=== PATIENT | female | born 1970 | race Caucasian/White ===

== ENCOUNTER 2017-02-25 22:24 | Emergency (ER) | payer BC ==
[2017-02-25] MEDS ORDERED: Benoxinate/Fluorescein 0.4-0.25% Ophth Soln 5 ML Bottle EYELF ONE (22:36)
[2017-02-25] MEDS ORDERED: Proparacaine 0.5% Ophth Soln 15 ML Bottle EYELF ONE (22:36)
--- NOTE | 2017-02-25 22:36 | EDM.PDOC ---
ED HPI GENERAL MEDICAL PROBLEM - General Chief Complaint: Eye Problems Stated Complaint: POSS EYE INJURY Time Seen by Provider: 02/25/17 22:28 - History of Present Illness INITIAL COMMENTS - FREE TEXT/NARRATIVE: 46-year-old female presents emergency room with left eye discomfort. This started this morning. She has some discomfort in her vision has not changed too much. She has a small amount of drainage coming from the. Patient wears extended wear contacts and change these 2 days ago. She denies any URI symptoms or other complaints at this time. She cannot recall any specific trauma. Patient has a significant history of fibromyalgia she's had back surgery in the past she's on chronic opioid therapy. - Related Data Allergies Allergy/AdvReac Type Severity Reaction Status Date / Time ketorolac [From Toradol] Allergy Swelling Verified 02/25/17 22:30 Penicillins Allergy Anaphylactic Verified 02/25/17 22:30 Shock sulfur dioxide Allergy Rash Verified 02/25/17 22:30 Home Meds: Home Meds Ciprofloxacin [Ciloxan 0.3% Ophth Soln] 2.5 ml .XX ONETIME 7 Days #1 bottle [Rx] ED ROS GENERAL - Review of Systems Review Of Systems: See Below Constitutional: Reports: No Symptoms HEENT: Reports: Contact Lenses, Eye Discharge, Eye Pain Respiratory: Reports: No Symptoms Cardiovascular: Reports: No Symptoms GI/Abdominal: Reports: No Symptoms ED EXAM GENERAL W FULL EYE - Physical Exam Exam: See Below Exam Limited By: No Limitations General Appearance: Alert, No Apparent Distress Eye Exam: Left Eye: Conjunctival Injection (Very mild with a small amount of yellow exudate), Bilateral Eye: Normal Fundi, PERRL Visual Acuity (R) 20/: 30 (20/30 both) Visual Acuity (L) 20/: 50 With Correction: No Eyelids: Right: Normal Appearance, Left: Edema (Mild), Bilateral: Foreign Body ( None seen), Lid Everted for Exam Conjunctiva & Sclera: Left: Conjunctival Edema, Discharge, Injected Cornea Exam: Right: Normal Appearance, Left: Examined with Flourescein (Mild inferior punctate) Extraocular Movements: Bilateral: Intact Anterior Chamber: Bilateral: Normal Appearance Posterior Chamber: Bilateral: Normal Funduscopic Ears: Normal External Exam, Normal Canal, Hearing Grossly Normal, Normal TMs Nose: Normal Inspection, Normal Mucosa, No Blood Respiratory/Chest: No Respiratory Distress, Lungs Clear, Normal Breath Sounds Cardiovascular: Normal Peripheral Pulses, Regular Rate, Rhythm, No Edema, No Gallop, No JVD, No Murmur, No Rub ED EYE w/ Add Procedure - Eye Procedure Alcaine Drops Administered: No (Proparacaine) Eye FB Removal: Other (None seen) Progress: Slit-lamp examination done of both eyes more specifically on the left side no foreign bodies identified she has what looks like a very early contact lens keratitis developing. Patient will be advised not use her contacts she is to follow-up with her eye doctor tomorrow she voices understanding of not using contacts him following up with her eye doctor tomorrow she'll be started on Cipro eyedrops as this is what we have in the emergency room. Departure - Departure Time of Disposition: 23:25 Disposition: Home, Self-Care 01 Clinical Impression: Keratitis secondary to contact lens - Discharge Information Referrals: Eliud Kothari MD [Primary Care Provider] - Forms: ED Department Discharge Additional Instructions: Return to the emergency room with any questions problems worsening symptoms. Follow-up with your eye doctor tomorrow for recheck. Do not use your contact lenses until this is completely resolved and advised to do so by her eye doctor. You have been started on Cipro eye drops used 2 drops to left eye every 2 hours while awake for the next 2 days then 2 drops every 4 hours for the following 5 days.
[2017-02-25 23:08] VITALS: BP 132/67
[2017-02-25] MEDS ORDERED: Ciprofloxacin 0.3% Ophth Soln 2.5 ML Bottle ONE (23:37)
== END 2017-02-25 23:40 | disposition home or self-care (01) ==
LOC: JD.ED 22:24
DX: H18.822 Corneal disorder due to contact lens, left eye (principal); Z88.6 Allergy status to analgesic agent; Z88.0 Allergy status to penicillin; Z88.2 Allergy status to sulfonamides
CPT/HCPCS: 99283

== ENCOUNTER 2019-12-03 22:45 | Emergency (ER) | payer BC ==
[2019-12-04] MEDS ORDERED: Acetaminophen/HYDROcodone 325-5 MG Tab PO ONE (00:18)
--- NOTE | 2019-12-04 00:30 | EDM.PDOC ---
ED HPI GENERAL MEDICAL PROBLEM - General Chief Complaint: Back Pain or Injury Stated Complaint: BACK PAIN Time Seen by Provider: 12/03/19 23:26 Source of Information: Reports: Patient, Other (Friend) History Limitations: Reports: Other (After a few minutes of answering questions about her past surgical history, the patient stated "that's enough", and did not provide additional information) - History of Present Illness INITIAL COMMENTS - FREE TEXT/NARRATIVE: Mrs. Gonzalez is a 49-year-old woman with a past medical history significant for chronic back pain for over 20 years, due to degenerative disc disease, status- post 3 lumbar fusions, untreated rheumatoid arthritis, and fibromyalgia, who now presents to the ED stating that she developed a flare of her chronic back pain earlier today. She reports pain felt in her the middle and lower part of her back, with radiation down both lower extremities to the toes. There is no bowel or bladder incontinence. She expressly denies any recent injury to her back. The patient states that she took some of her prescribed diazepam, with no relief. When asked what has worked for her in the past, she replied "hydros". Here in the ED, the patient's initial BP is found to be elevated at 155/90, otherwise, she is hemodynamically stable, afebrile, saturating 91% on room air, however, on recheck, her oxygen saturation is found to be 99% on room air. Other than her back pain, the patient denies recent fever, chills, sore throat, ear pain, nasal or sinus congestion, cough, dyspnea, chest pain, palpitations, nausea, vomiting, constipation, diarrhea, abdominal pain, urinary symptoms, recent weight gain or weight loss, recent bloody bowel movements or black bowel movements, recent joint aches, headaches, or rashes. The patient's PCP is Dr. Eliud Kothari. Her Neurosurgeon is Dr. Heath Ragsdale. Middle Back Pain Score (Numeric/FACES): 10 - Related Data Allergies Allergy/AdvReac Type Severity Reaction Status Date / Time ketorolac [From Toradol] Allergy Swelling Verified 02/25/17 22:30 Penicillins Allergy Anaphylactic Verified 02/25/17 22:30 Shock sulfur dioxide Allergy Rash Verified 02/25/17 22:30 Home Meds: Home Meds ALPRAZolam [Alprazolam] 1 mg PO TID PRN 06/21/20 [History] Baclofen 10 mg PO DAILY 12/03/19 [History] Gabapentin [Neurontin] 300 mg PO QID 12/03/19 [History] Maxalt. 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 (See Below) (Ovarian cysts) Musculoskeletal History: Reports: Back Pain, Chronic (due to DDD), RA (untreated), Other (See Below) (Myotonic dystrophy) Neurological History: Reports: Migraines Psychiatric History: Reports: PTSD, Other (See Below) (Fibromyalgia, Restless leg syndrome, Insomnia) - Past Surgical History GI Surgical History: Reports: Appendectomy, Cholecystectomy (around 2000) Female Surgical History: Reports: Hysterectomy (complete), Other (See Below) (Several laparoscopic ovarian cystectomies) Neurological Surgical History: Reports: Lumbar Spine (L3-S1 fused over 3 surgeries) Social & Family History - Tobacco Use Smoking Status *Q: Current Every Day Smoker Years of Tobacco use: 30 Packs/Tins Daily: 1 - Caffeine Use Caffeine Use: Reports: None - Recreational Drug Use Recreational Drug Use: No ED ROS GENERAL - Review of Systems Review Of Systems: Comprehensive ROS is negative, except as noted in HPI. ED EXAM,LOWER BACK PAIN/INJURY - Physical Exam Exam: See Below Exam Limited By: No Limitations General Appearance: Alert, WD/WN, No Apparent Distress Back Exam: Other (There is a well-healed midline scar over the lumbar spinous processes. No tenderness to palpation of the thoracic or lumbar spinous processes, however, the patient does report reproducible tenderness when the mid -back paraspinous musculature is palpated.) Course - Vital Signs Last Recorded V/S: Last Vital Signs Temp 37.0 C 12/04/19 00:55 Pulse 78 12/04/19 00:55 Resp 14 12/04/19 00:55 BP 128/78 12/04/19 00:55 Pulse Ox 99 12/04/19 00:55 - Orders/Labs/Meds Meds: Medications Discontinued Medications Generic Name Dose Route Start Last Admin Trade Name Marcos PRN Reason Stop Dose Admin Hydrocodone Bitart/Acetaminophen 2 tab 12/04/19 00:18 12/04/19 00:48 Defiance 325-5 Mg PO 12/04/19 00:19 2 tab ONETIME ONE Administration - Re-Assessments/Exams Free Text/Narrative Re-Assessment/Exam: 12/04/19 00:19 As above, the patient developed a flare of her chronic mid to lower back pain earlier today, with radiation down both of her lower extremities to the toes. These are the same symptoms that she has experienced in the past. Despite her usual medications, including baclofen, diazepam, alprazolam, trazodone, and amitriptyline, she feels that she would benefit from some Defiance. As the patient has not sustained any traumatic injury, I do not see an indication for imaging studies, therefore I will order 2 tablets of Defiance, and discharge her home with a small prescription for the same. She can then contact the office of her PCP in the morning. Departure - Departure Time of Disposition: 00:20 Disposition: Home, Self-Care 01 Condition: Good Clinical Impression: Acute exacerbation of chronic low back pain - Discharge Information *PRESCRIPTION DRUG MONITORING PROGRAM REVIEWED*: Not Applicable *COPY OF PRESCRIPTION DRUG MONITORING REPORT IN PATIENT SUMI: Not Applicable Prescriptions: Acetaminophen/HYDROcodone [Defiance 325-5 MG] 1 - 2 tab PO Q6H PRN #10 tablet PRN Reason: Pain Instructions: Chronic Back Pain, [id number] Referrals: Eliud Kothari MD [Primary Care Provider] - Heath Ragsdale MD [Ordering Only Provider] - Forms: ED Department Discharge Additional Instructions: You were seen in the emergency room for a flare of your chronic mid to lower back pain earlier today. You were treated with 2 tablets of the opioid Defiance in the ER, and a prescripti on for Defiance was provided to you. We recommend that you take [id number] ibuprofen, 3 tablets (600 mg) every 8 hours, [id number], as needed for back pain. You may take 1 to 2 tablets of Defiance up to every 6 hours, as needed for pain not relieved by ibuprofen. Despite your discomfort, it is very important that you stay active. Swimming is best, but walking is good, as well. Do not just stay laying down. Contact the office of your PCP, Dr. Eliud Kothari, first thing in the morning, to make an appointment to be seen. If any other problems, please do not hesitate to return to the ER. Sepsis Event Note (ED) - Evaluation Sepsis Screening Result: No Definite Risk - Focused Exam Vital Signs: Vital Signs Temp Pulse Resp BP Pulse Ox 12/04/19 00:55 37.0 C 78 14 128/78 99 12/03/19 23:07 36.6 C 88 16 155/90 H 91 L
[2019-12-04 01:04] VITALS: BP 128/78; PULSE 78
== END 2019-12-04 00:55 | disposition home or self-care (01) ==
LOC: JD.ED 22:45
DX: M54.5 Low back pain (principal); G89.29 Other chronic pain; G43.909 Migraine, unspecified, not intractable, without status migrainosus; F17.210 Nicotine dependence, cigarettes, uncomplicated; Z88.0 Allergy status to penicillin; Z88.6 Allergy status to analgesic agent; Z88.2 Allergy status to sulfonamides; Z79.899 Other long term (current) drug therapy
CPT/HCPCS: 99283; A9270

== ENCOUNTER 2020-01-27 17:36 | Emergency (ER) | payer BC ==
[2020-01-27 17:50] VITALS: PULSE 85
[2020-01-27] MEDS ORDERED: Lidocaine 1% 10 ML MDV INJECT ONE (18:02)
--- NOTE | 2020-01-27 18:02 | EDM.PDOC ---
ED HPI GENERAL MEDICAL PROBLEM - General Chief Complaint: Laceration Stated Complaint: FACE LAC/INJURY Time Seen by Provider: 01/27/20 17:56 Source of Information: Reports: Patient History Limitations: Reports: No Limitations - History of Present Illness INITIAL COMMENTS - FREE TEXT/NARRATIVE: 49-year-old female presents to the ED with a fishhook deeply embedded in her left facial cheek. She states she caught herself with the fishhook but came home late this afternoon about 1600 hrs. She is unsure when her last tetanus toxoid was updated but she will check with the clinic to see if she is up-to-date or not. Onset: Today, Sudden Onset Date: 01/27/20 Onset Time: 16:00 Duration: Hour(s): Location: Reports: Face (Shook single maylin embedded left facial cheek) Quality: Reports: Burning, Stabbing Severity: Mild Improves with: Reports: None Worsens with: Reports: Movement Context: Reports: Other (Self-inflicted). Denies: Activity, Exercise, Lifting, Sick Contact, Trauma Associated Symptoms: Reports: No Other Symptoms ( fishhook embedded in her left face.) Treatments STORAGE SOLUTIONS ARCHITECT: Reports: Other (see below) (None.) Left Face/Facial Pain Score (Numeric/FACES): 8 - Related Data Allergies Allergy/AdvReac Type Severity Reaction Status Date / Time iodine Allergy Severe Airway Verified 01/27/20 17:57 Tightness ketorolac [From Toradol] Allergy Severe Swelling Verified 01/27/20 17:56 Penicillins Allergy Severe Anaphylactic Verified 01/27/20 17:56 Shock sulfur dioxide Allergy Severe Rash Verified 01/27/20 17:56 seafood Allergy Severe Rash Uncoded 01/27/20 17:57 Home Meds: Home Meds ALPRAZolam [Alprazolam] 1 mg PO TID PRN 12/03/19 [History] Baclofen 10 mg PO DAILY 12/03/19 [History] Gabapentin [Neurontin] 600 mg PO QID 12/03/19 [History] Maxalt. 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) (Ovarian cysts) Musculoskeletal History: Reports: Back Pain, Chronic (due to DDD), RA (untreated), Other (See Below) (Myotonic dystrophy) Neurological History: Reports: Migraines Other Neuro History: restless leg syndrome Psychiatric History: Reports: PTSD, Other (See Below) (Fibromyalgia, Restless leg syndrome, Insomnia) - Past Surgical History GI Surgical History: Reports: Appendectomy, Cholecystectomy (around 2000) Female Surgical History: Reports: Hysterectomy (complete), Other (See Below) (Several laparoscopic ovarian cystectomies) Neurological Surgical History: Reports: Lumbar Spine (L3-S1 fused over 3 surgeries) Social & Family History - Caffeine Use Caffeine Use: Reports: None - Living Situation & Occupation Living situation: Reports: Occupation: Unemployed ED ROS GENERAL - Review of Systems Review Of Systems: See Below Constitutional: Reports: No Symptoms HEENT: Reports: Glasses Respiratory: Reports: No Symptoms Cardiovascular: Reports: No Symptoms Endocrine: Reports: No Symptoms GI/Abdominal: Reports: No Symptoms : Reports: No Symptoms Musculoskeletal: Reports: Joint Pain Skin: Reports: No Symptoms (Knees hips low back at times) Neurological: Reports: Other Psychiatric: Reports: No Symptoms Hematologic/Lymphatic: Reports: No Symptoms ED EXAM, SKIN/RASH Exam: See Below Exam Limited By: No Limitations General Appearance: Alert, WD/WN, No Apparent Distress, Other (Temperature is 36.2. Heart rate is 85 and sinus respiratory is 20 BP 160/110 which we will keep an eye on. O2 sats 100% on room air) Eye Exam: Bilateral Eye: Normal Inspection, PERRL Throat/Mouth: Normal Inspection, Normal Lips, Normal Teeth, Normal Oropharynx Head: Other (She has a single barbed fishhook embedded in her left facial cheek with minimal swelling.) Neck: Normal Inspection, Supple, Non-Tender, Full Range of Motion. No: Lymphadenopathy (L), Lymphadenopathy (R) Respiratory/Chest: No Respiratory Distress, Lungs Clear, Normal Breath Sounds, No Accessory Muscle Use ED SKIN PROCEDURES - Foreign Body Removal Consent Obtained:: Patient Performing Doctor:: Alonso Argueta Foreign Body Other Location Comment:: Movable single barbed fishhook left facial cheek. [place] was removed completely. Anesthesia Type: Local (Use lidocaine 1%) Complications:: No Course - Vital Signs Last Recorded V/S: Last Vital Signs Temp 36.2 C 01/27/20 17:49 Pulse 85 01/27/20 17:49 Resp 20 01/27/20 17:49 BP 138/91 H 01/27/20 18:05 Pulse Ox 100 01/27/20 17:49 - Orders/Labs/Meds Meds: Medications Discontinued Medications Generic Name Dose Route Start Last Admin Trade Name Marcos PRN Reason Stop Dose Admin Lidocaine HCl 10 ml 01/27/20 18:02 01/27/20 18:22 Xylocaine 1% INJECT 01/27/20 18:03 10 ml ONETIME ONE Administration - Radiology Interpretation Free Text/Narrative:: 49-year-old female presents to the ED with a fishhook embedded in her left facial cheek. This occurred approximately 1600 hrs. today. Plan will be to remove the fishhook under local anesthetic. She will call the clinic in the next 2 days to see when her last tetanus toxoid was updated. - Re-Assessments/Exams Free Text/Narrative Re-Assessment/Exam: 01/27/20 18:30 49-year-old female presents to the ED with a single barbed fishhook embedded in her left facial cheek that she accidentally hurt herself at about 1600 hrs. today. Wound will be anesthetized and the maylin pushed through the tissue and then cut off with wire cutters. 01/27/20 18:30 fishhook has been removed completely under local anesthetic using 1% lidocaine. The maylin was cut off and the fishhook removed. Patient will be placed on doxycycline 100 mg twice daily for the next 6 days to prevent secondary wound infection. She will check with the clinic in 2 days time to assess her need for possible tetanus toxoid. Departure - Departure Time of Disposition: 18:24 Disposition: Home, Self-Care 01 Condition: Fair Clinical Impression: Fish hook injury of cheek Qualifiers: Encounter type: initial encounter Qualified Code(s): S09.93XA - Unspecified injury of face, initial encounter - Discharge Information *PRESCRIPTION DRUG MONITORING PROGRAM REVIEWED*: Not Applicable *COPY OF PRESCRIPTION DRUG MONITORING REPORT IN PATIENT SUMI: Not Applicable Prescriptions: Doxycycline [Vibra-Tabs] 100 mg PO Q12HR #12 tab Instructions: Puncture Wound, [id number] Referrals: Eliud Kothari MD [Primary Care Provider] - Forms: ED Department Discharge Additional Instructions: Evaluation in the emergency room today in regards to a fishhook that was deeply embedded in the left facial cheek. Area was anesthetized and fishhook was pushed through the anesthetized skin and then the maylin was cut off to remove the fishhook completely. It is left to puncture wounds 1 where it entered and of course 1 where we pushed it through the skin to remove the maylin. Daily cleanse these wounds with soap and water. Showering is okay. Then apply topical antibiotic such as bacitracin or Polysporin to the wounds once daily. Suggest taking oral antibiotic doxycycline 100 mg twice daily for the next 6 days to prevent secondary wound infection. May use Motrin or Tylenol for pain relief if needed. Sepsis Event Note (ED) - Evaluation Sepsis Screening Result: No Definite Risk - Focused Exam Vital Signs: Vital Signs Temp Pulse Resp BP Pulse Ox 01/27/20 18:05 138/91 H 01/27/20 17:49 36.2 C 85 20 160/110 H 100
[2020-01-27 18:05] VITALS: BP 138/91
== END 2020-01-27 18:35 | disposition home or self-care (01) ==
LOC: JD.ED 17:36
DX: S00.85XA Superficial foreign body of other part of head, initial encounter (principal); Z91.09 Other allergy status, other than to drugs and biological substances; Z88.6 Allergy status to analgesic agent; Z88.0 Allergy status to penicillin; Z91.013 Allergy to seafood; G25.81 Restless legs syndrome; W45.8XXA Other foreign body or object entering through skin, initial encounter
CPT/HCPCS: 99283; J2001

== ENCOUNTER 2020-03-16 20:55 | Emergency (ER) | payer BC ==
[2020-03-16 21:18] VITALS: BP 157/96; PULSE 101
[2020-03-16] MEDS ORDERED: FLU VACC QS2020-21(6MOS UP)/PF 60 MCG/0.5 ML SYRINGE IM ONE (21:45)
--- NOTE | 2020-03-16 22:03 | EDM.PDOC ---
ED HPI GENERAL MEDICAL PROBLEM - General Chief Complaint: Upper Extremity Injury/Pain Stated Complaint: right side shoulder & abdominal pain fall at home Time Seen by Provider: 03/16/20 21:50 Source of Information: Reports: Patient History Limitations: Reports: No Limitations - History of Present Illness INITIAL COMMENTS - FREE TEXT/NARRATIVE: This is a 49-year-old female. She apparently was sleeping on a couch rolled off landing on her right shoulder. She states she is not certain whether she might of hit the woodstove or not when she fell. She complains of right shoulder pain. She has very little movement without pain but neurovascular is intact distally in her right upper extremity. Says she also hit her hip but that stopped but is really bothering her. She did not hit her head and there was no loss of consciousness. Right Shoulder Pain Score (Numeric/FACES): 8 - Related Data Allergies Allergy/AdvReac Type Severity Reaction Status Date / Time iodine Allergy Severe Airway Verified 03/16/20 21:18 Tightness ketorolac [From Toradol] Allergy Severe Swelling Verified 03/16/20 21:18 Penicillins Allergy Severe Anaphylactic Verified 03/16/20 21:18 Shock sulfur dioxide Allergy Severe Rash Verified 03/16/20 21:18 azithromycin Allergy Hives Verified 03/16/20 21:18 seafood Allergy Severe Rash Uncoded 01/27/20 17:57 Home Meds: Home Meds ALPRAZolam [Alprazolam] 1 mg PO TID PRN 12/03/19 [History] Baclofen 10 mg PO DAILY 12/03/19 [History] Gabapentin [Neurontin] 600 mg PO QID 12/03/19 [History] Maxalt. 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 (See Below) Musculoskeletal History: Reports: Back Pain, Chronic, RA, Other (See Below) Other Musculoskeletal History: 3 back surgeries Neurological History: Reports: Migraines Other Neuro History: restless leg syndrome Psychiatric History: Reports: Anxiety, PTSD, Other (See Below) - Past Surgical History GI Surgical History: Reports: Appendectomy, Cholecystectomy Female Surgical History: Reports: Hysterectomy, Other (See Below) Neurological Surgical History: Reports: Lumbar Spine Musculoskeletal Surgical History: Reports: Other (See Below) Other Musculoskeletal Surgeries/Procedures:: back- fusion L3-S1 Social & Family History - Family History Family Medical History: Noncontributory - Tobacco Use Smoking Status *Q: Current Every Day Smoker Years of Tobacco use: 32 Packs/Tins Daily: 0.5 - Caffeine Use Caffeine Use: Reports: Coffee, Soda, Tea - Recreational Drug Use Recreational Drug Use: No - Living Situation & Occupation Living situation: Reports: Occupation: Unemployed Review of Systems - Review of Systems Review Of Systems: See Below Constitutional: Reports: No Symptoms Eyes: Reports: No Symptoms Ears: Reports: No Symptoms Nose: Reports: No Symptoms Mouth/Throat: Reports: No Symptoms Respiratory: Reports: Cough. Denies: Shortness of Breath, Wheezing Cardiovascular: Denies: Chest Pain GI/Abdominal: Reports: No Symptoms Genitourinary: Reports: No Symptoms Musculoskeletal: Reports: Other (As per HPI) Skin: Reports: No Symptoms Neurological: Reports: No Symptoms Psychiatric: Reports: No Symptoms ED EXAM, GENERAL - Physical Exam Exam: See Below Exam Limited By: No Limitations General Appearance: Alert, WD/WN, No Apparent Distress Eye Exam: Bilateral Eye: Normal Inspection Ears: Normal External Exam Throat/Mouth: Normal Voice, No Airway Compromise Head: Atraumatic, Normocephalic Neck: Supple, Non-Tender Respiratory/Chest: No Respiratory Distress GI/Abdominal: Other (She denies any abdominal tenderness) Back Exam: Full Range of Motion Extremities: Other (Shoulder does not appear to have any obvious deformity. She is very tender in the shoulder joint itself. There is no dislocation of the shoulder. Her distal clavicle is also tender but it does not appear to be deformed. She denies any right elbow wrist or hand symptoms. Neurovascular is intact distally in that right upper extremity) Neurological: Alert, Oriented, Normal Cognition, No Motor/Sensory Deficits Psychiatric: Normal Affect, Normal Mood Skin Exam: Warm, Dry Course - Vital Signs Last Recorded V/S: Last Vital Signs Temp 97.1 F 03/16/20 21:12 Pulse 101 H 03/16/20 21:12 Resp 16 03/16/20 21:12 BP 157/96 H 03/16/20 21:12 Pulse Ox 93 L 03/16/20 21:12 - Orders/Labs/Meds Orders: Active Orders 24 hr Category Date Time Status Influenza Vaccine Charge [RC] .DISCHARGE Care 03/16/20 21:21 Active Clavicle Rt [CR] Stat Exams 03/16/20 21:50 Taken Head wo Cont [CT] Stat Exams 03/16/20 23:36 Taken Humerus Rt [CR] Stat Exams 03/16/20 21:50 Taken Shoulder Comp Rt [CR] Stat Exams 03/16/20 21:50 Taken Pharmacy to Dose - InFluenza V [Pharmacy to Dose - Med 03/16/20 21:21 Pending InFluenza Vaccine] 1 each IM ONETIME ONE Medication Orders Influenza Virus Vaccine (Pharmacy To Dose - Influenza Vaccine) 1 each IM ONETIME ONE Stop: 03/16/20 21:22 Labs: Laboratory Tests 03/16/20 03/16/20 03/17/20 Range/Units 23:55 23:55 00:06 WBC 9.75 (3.98-10.04) K/mm3 RBC 4.78 (3.98-5.22) M/mm3 Hgb 14.8 (11.2-15.7) gm/dl Hct 45.8 H (34.1-44.9) % MCV 95.8 H (79.4-94.8) fl MCH 31.0 (25.6-32.2) pg MCHC 32.3 (32.2-35.5) g/dl RDW Std Deviation 51.3 H (36.4-46.3) fL Plt Count 146 L (182-369) K/mm3 MPV 11.0 (9.4-12.3) fl Neut % (Auto) 61.3 (34.0-71.1) % Lymph % (Auto) 30.4 (19.3-51.7) % Sibley % (Auto) 6.1 (4.7-12.5) % Eos % (Auto) 1.3 (0.7-5.8) Baso % (Auto) 0.6 (0.1-1.2) % Neut # (Auto) 5.98 (1.56-6.13) K/mm3 Lymph # (Auto) 2.96 (1.18-3.74) K/mm3 Sibley # (Auto) 0.59 H (0.24-0.36) K/mm3 Eos # (Auto) 0.13 (0.04-0.36) K/mm3 Baso # (Auto) 0.06 (0.01-0.08) K/mm3 Sodium 140 (136-145) mEq/L Potassium 3.8 (3.5-5.1) mEq/L Chloride 104 (98-107) mEq/L Carbon Dioxide 30 (21-32) mEq/L Anion Gap 9.8 (5-15) BUN 13 (7-18) mg/dL Creatinine 0.9 (0.55-1.02) mg/dL Est Cr Clr Drug Dosing 71.56 mL/min Estimated GFR (MDRD) > 60 (>60) mL/min BUN/Creatinine Ratio 14.4 (14-18) Glucose 107 H (74-106) mg/dL Calcium 8.5 (8.5-10.1) mg/dL Total Bilirubin 0.3 (0.2-1.0) mg/dL AST 16 (15-37) U/L ALT 24 (14-59) U/L Alkaline Phosphatase 106 (46-116) U/L Total Protein 6.7 (6.4-8.2) g/dl Albumin 3.3 L (3.4-5.0) g/dl Globulin 3.4 gm/dL Albumin/Globulin Ratio 1.0 (1-2) Urine Color Yellow (Yellow) Urine Appearance Clear (Clear) Urine pH 7.0 (5.0-8.0) Ur Specific Willard 1.015 (1.005-1.030) Urine Protein Negative (Negative) Urine Glucose (UA) Negative (Negative) Urine Ketones Negative (Negative) Urine Occult Blood Negative (Negative) Urine Nitrite Positive H (Negative) Urine Bilirubin Negative (Negative) Urine Urobilinogen 0.2 (0.2-1.0) Ur Leukocyte Esterase Negative (Negative) Urine RBC Not seen (0-5) /hpf Urine WBC Not seen (0-5) /hpf Ur Epithelial Cells Not seen (0-5) /hpf Urine Bacteria Many H (FEW) /hpf Urine Mucus Not seen (FEW) /hpf Urine Opiates Screen (ODNCWX=584) Ur Buprenorphine Scrn (CUTOFF=10) Ur Oxycodone Screen (OFK5SF=346) Urine Methadone Screen (SDZYFL=721) Ur Propoxyphene Screen (KQUZFY=487) Ur Barbiturates Screen (DUOGRH=089) Ur Tricyclics Screen (ZINWCW=725) Ur Phencyclidine Scrn (CUTOFF=25) Ur Amphetamine Screen (ISDMEV=963) U Methamphetamines Scrn (POKLFN=240) U Benzodiazepines Scrn (UYBPAQ=718) U Cocaine Metab Screen (QTEPKK=853) U Marijuana (THC) Screen (CUTOFF=50) 03/17/20 Range/Units 00:06 WBC (3.98-10.04) K/mm3 RBC (3.98-5.22) M/mm3 Hgb (11.2-15.7) gm/dl Hct (34.1-44.9) % MCV (79.4-94.8) fl MCH (25.6-32.2) pg MCHC (32.2-35.5) g/dl RDW Std Deviation (36.4-46.3) fL Plt Count (182-369) K/mm3 MPV (9.4-12.3) fl Neut % (Auto) (34.0-71.1) % Lymph % (Auto) (19.3-51.7) % Sibley % (Auto) (4.7-12.5) % Eos % (Auto) (0.7-5.8) Baso % (Auto) (0.1-1.2) % Neut # (Auto) (1.56-6.13) K/mm3 Lymph # (Auto) (1.18-3.74) K/mm3 Sibley # (Auto) (0.24-0.36) K/mm3 Eos # (Auto) (0.04-0.36) K/mm3 Baso # (Auto) (0.01-0.08) K/mm3 Sodium (136-145) mEq/L Potassium (3.5-5.1) mEq/L Chloride (98-107) mEq/L Carbon Dioxide (21-32) mEq/L Anion Gap (5-15) BUN (7-18) mg/dL Creatinine (0.55-1.02) mg/dL Est Cr Clr Drug Dosing mL/min Estimated GFR (MDRD) (>60) mL/min BUN/Creatinine Ratio (14-18) Glucose (74-106) mg/dL Calcium (8.5-10.1) mg/dL Total Bilirubin (0.2-1.0) mg/dL AST (15-37) U/L ALT (14-59) U/L Alkaline Phosphatase (46-116) U/L Total Protein (6.4-8.2) g/dl Albumin (3.4-5.0) g/dl Globulin gm/dL Albumin/Globulin Ratio (1-2) Urine Color (Yellow) Urine Appearance (Clear) Urine pH (5.0-8.0) Ur Specific Willard (1.005-1.030) Urine Protein (Negative) Urine Glucose (UA) (Negative) Urine Ketones (Negative) Urine Occult Blood (Negative) Urine Nitrite (Negative) Urine Bilirubin (Negative) Urine Urobilinogen (0.2-1.0) Ur Leukocyte Esterase (Negative) Urine RBC (0-5) /hpf Urine WBC (0-5) /hpf Ur Epithelial Cells (0-5) /hpf Urine Bacteria (FEW) /hpf Urine Mucus (FEW) /hpf Urine Opiates Screen Negative (QBWLNC=048) Ur Buprenorphine Scrn Negative (CUTOFF=10) Ur Oxycodone Screen Negative (UZM3XR=733) Urine Methadone Screen Negative (ACVXCN=520) Ur Propoxyphene Screen Negative (XDYRBZ=712) Ur Barbiturates Screen Negative (CBJZEI=138) Ur Tricyclics Screen Negative (TOJARB=732) Ur Phencyclidine Scrn Negative (CUTOFF=25) Ur Amphetamine Screen Negative (VFEQIA=839) U Methamphetamines Scrn Negative (SUZGSL=180) U Benzodiazepines Scrn Presumptive positive H (QHTNOT=639) U Cocaine Metab Screen Negative (HILYEK=721) U Marijuana (THC) Screen Negative (CUTOFF=50) Meds: Medications Generic Name Dose Route Start Last Admin Trade Name Freq PRN Reason Stop Dose Admin Influenza Virus Vaccine 1 each 03/16/20 21:21 Pharmacy To Dose - Influenza Vaccine IM 03/16/20 21:22 ONETIME ONE Discontinued Medications Generic Name Dose Route Start Last Admin Trade Name Freq PRN Reason Stop Dose Admin Influenza Virus Vaccine 60 mcg 03/16/20 21:45 Fluzone Quad Syringe IM 03/16/20 21:46 .ONCE ONE Naloxone HCl 1 mg 03/16/20 23:08 03/16/20 23:12 Narcan IVPUSH 03/16/20 23:09 1 mg ONETIME ONE Administration - Radiology Interpretation Free Text/Narrative:: Sprays of the shoulder do not show any acute fractures other than there is widening of the right AC joint did. Humerus as well as the collarbone do not show fracture just the widening of that AC joint. CT scan of the head does not show any acute intracranial abnormalities. - Re-Assessments/Exams Free Text/Narrative Re-Assessment/Exam: 03/16/20 23:33 I went back to talk to the patient regarding her x-ray results and she is sound asleep and hard to arouse. Apparently she told the nurses that she took an alprazolam prior to coming to the ER. We have not given her any medications in the ER for her shoulder pain. She was alert and oriented and awake when I first spoke to her and now she is somnolent and sleeping and hard to arouse. We did establish an IV on her and gave her some Narcan but that did not seem to make a difference. We will obtain some blood work as well as a drug screen on her to determine her reason of unconsciousness. 03/17/20 04:01 Patient has been sleeping peacefully. Her CT scan did not show anything acute her CBC and CMP were essentially normal. Her urine suggest that she has a urinary tract infection. Her drug screen was positive for benzodiazepines and nothing else. 03/17/20 05:13 Patient is awake and talking and she wants to go home. I explained to her that she has torn the AC joint and that is what is causing her pain and that she needs to follow-up with an leave specialist. Departure - Departure Time of Disposition: 05:14 Disposition: Home, Self-Care 01 Condition: Fair Clinical Impression: Acromioclavicular joint separation, type 1 Qualifiers: Encounter type: initial encounter Laterality: right Qualified Code(s): S43.101A - Unspecified dislocation of right acromioclavicular joint, initial encounter - Discharge Information *PRESCRIPTION DRUG MONITORING PROGRAM REVIEWED*: Not Applicable *COPY OF PRESCRIPTION DRUG MONITORING REPORT IN PATIENT SUMI: Not Applicable Instructions: Acromioclavicular Separation Referrals: Eliud Kothari MD [Primary Care Provider] - Forms: ED Department Discharge, ED Return to Work/School Form Additional Instructions: Follow-up with Dr. Sommers, the leave specialist, here in town for your AC joint separation, wear the sling when you are up but you may take it off if you are sitting or lying down, put ice on this on and off for the next 48 hours to help with the soreness, take Aleve or naproxen to help with the pain and the inflammation, return to the ER if needed Sepsis Event Note (ED) - Evaluation Sepsis Screening Result: No Definite Risk - Focused Exam Vital Signs: Vital Signs Temp Pulse Resp BP Pulse Ox 03/16/20 21:12 97.1 F 101 H 16 157/96 H 93 L - My Orders Last 24 Hours: My Active Orders 03/16/20 21:21 Influenza Vaccine Charge [RC] .DISCHARGE Pharmacy to Dose - InFluenza V [Pharmacy to Dose - InFluenza Vaccine] 1 each IM ONETIME ONE 03/16/20 21:50 Clavicle Rt [CR] Stat Humerus Rt [CR] Stat Shoulder Comp Rt [CR] Stat 03/16/20 23:36 Head wo Cont [CT] Stat - Assessment/Plan Last 24 Hours: My Active Orders 03/16/20 21:21 Influenza Vaccine Charge [RC] .DISCHARGE Pharmacy to Dose - InFluenza V [Pharmacy to Dose - InFluenza Vaccine] 1 each IM ONETIME ONE 03/16/20 21:50 Clavicle Rt [CR] Stat Humerus Rt [CR] Stat Shoulder Comp Rt [CR] Stat 03/16/20 23:36 Head wo Cont [CT] Stat
[2020-03-16] MEDS ORDERED: Naloxone 2 MG/2 ML Syringe IVPUSH ONE (23:08)
--- NOTE | 2020-04-17 08:14 | CR ---
PROCEDURE INFORMATION: Exam: XR Right Shoulder Exam date and time: 03/16/2020 10:10 PM Age: 49 years old Clinical indication: Injury or trauma; Fall; Swelling (edema); Shoulder; Right TECHNIQUE: Imaging protocol: XR Right shoulder. Views: 2 or more views. COMPARISON: No relevant prior studies available. FINDINGS: Bones/joints: Widening of the right acromioclavicular joint measuring up to 1.3 cm likely representing an acromioclavicular joint injury. No acute fracture. Lungs: Three nodules seen within the mid to right upper lung measuring up to 6 mm that likely represent calcified granulomas. Malignancy cannot be excluded. Correlation with prior imaging is recommended. Soft tissues: Normal. IMPRESSION: 1. Widening of the right acromioclavicular joint measuring up to 1.3 cm likely representing an acromioclavicular joint injury. No acute fracture. 2. Three nodules seen within the mid to right upper lung measuring up to 6 mm that likely represent calcified granulomas. Malignancy cannot be excluded. Correlation with prior imaging is he recommended. Thank you for allowing us to participate in the care of your patient. Dictated and Authenticated by: Alonso Cruz MD 04/16/2020 10:21 PM Central Time ([place] & [place]) [place]
--- NOTE | 2020-04-17 08:15 | CR ---
PROCEDURE INFORMATION: Exam: XR Right Humerus Exam date and time: 03/16/2020 10:12 PM Age: 49 years old Clinical indication: Injury or trauma; Fall; Swelling (edema); Shoulder and arm, upper; Right TECHNIQUE: Imaging protocol: XR Right humerus Views: 2 or more views. COMPARISON: No relevant prior studies available. FINDINGS: Bones/joints: No neoplastic osseous lesion. No acute joint dislocation. No acute fracture. Soft tissues: No evidence of suspicious abnormal radiopaque foreign body. IMPRESSION: 1. No acute fracture. 2. Remainder of findings described as above. Thank you for allowing us to participate in the care of your patient. Dictated and Authenticated by: Alonso Cruz MD 04/16/2020 10:22 PM Central Time ([place] & [place]) [place]
--- NOTE | 2020-04-17 08:16 | CR ---
PROCEDURE INFORMATION: Exam: XR Right Clavicle, Complete Exam date and time: 03/16/2020 10:13 PM Age: 49 years old Clinical indication: Injury or trauma; Fall; Swelling (edema); Shoulder; Right TECHNIQUE: Imaging protocol: XR Right clavicle complete. Any number of views. COMPARISON: No relevant prior studies available. FINDINGS: Bones/joints: Widening of the right acromioclavicular joint measuring up to 1.3 cm likely representing an acromioclavicular joint injury. No acute fracture. Soft tissues: Normal. IMPRESSION: Widening of the right acromioclavicular joint measuring up to 1.3 cm likely representing an acromioclavicular joint injury. No acute fracture. Remainder of findings described as above. Thank you for allowing us to participate in the care of your patient. Dictated and Authenticated by: Alonso Cruz MD 04/16/2020 10:19 PM Central Time ([place] & [place]) [place]
--- NOTE | 2020-04-17 08:17 | CT ---
PROCEDURE INFORMATION: Exam: CT Head Without Contrast Exam date and time: 03/16/2020 11:44 PM Age: 49 years old Clinical indication: Injury or trauma; Fall; Concussion/head injury; Without loss of consciousness TECHNIQUE: Imaging protocol: Computed tomography of the head without contrast. COMPARISON: No relevant prior studies available. FINDINGS: Brain: No acute subarachnoid or parenchymal hemorrhage. No neoplastic mass lesion, midline shift or mass effect. No acute subdural or epidural hematoma. No definite acute infarct. Cerebral ventricles: No acute intraventricular hemorrhage. No hydrocephalus. Bones/joints: No acute calvarial fracture. Paranasal sinuses: Chronic RIGHT sphenoid sinusitis. Mastoid air cells: Visualized mastoid air cells are well aerated. Soft tissues: Unremarkable. IMPRESSION: 1. No acute intracranial abnormality. 2. Remainder of findings as above. Thank you for allowing us to participate in the care of your patient. Dictated and Authenticated by: Alonso Cruz MD 04/16/2020 10:18 PM Central Time ([place] & [place]) [place]
== END 2020-03-17 05:34 | disposition home or self-care (01) ==
LOC: JD.ED 20:55
DX: S43.101A Unspecified dislocation of right acromioclavicular joint, initial encounter (principal); F41.9 Anxiety disorder, unspecified; G25.81 Restless legs syndrome; F17.210 Nicotine dependence, cigarettes, uncomplicated; Z91.048 Other nonmedicinal substance allergy status; Z88.6 Allergy status to analgesic agent; Z88.0 Allergy status to penicillin; Z88.2 Allergy status to sulfonamides; Z88.1 Allergy status to other antibiotic agents; Z91.013 Allergy to seafood; Z23 Encounter for immunization; W08.XXXA Fall from other furniture, initial encounter
CPT/HCPCS: 36415; 70450; 73000; 73030; 73060; 80053; 80306; 81001; 85025; 90471; 90686; 96374; 99284; J2310; 99283; G0008

== ENCOUNTER 2020-10-09 07:06 | Day surgery (SDC) | payer BC ==
[~2020-10-09 07:06] MED LIST: Albuterol 0.083% 2.5 MG/3 ML Neb Soln NEB ONE; Lactated Ringers 1,000 ML IV SCH; Lidocaine 1%/Sod Bicarbonate in NS 8.4% 1 ML Syringe IDERM PRN; Sodium Chloride 0.9% 10 ML Syringe FLUSH PRN
[2020-10-09] MEDS ORDERED: Albuterol 0.083% 2.5 MG/3 ML Neb Soln ONE (07:28)
[2020-10-09] MEDS ORDERED: Propofol 200 MG/20 ML SDV ONE ×4 (07:34→09:04)
[2020-10-09] MEDS ORDERED: fentaNYL 100 MCG/2 ML SDV ONE (07:35)
[2020-10-09] MEDS ORDERED: Midazolam 1 MG/ML 2 ML SDV ONE ×2 (07:35→08:14)
[2020-10-09] MEDS ORDERED: Lidocaine 1% 4 ML ONE (07:35)
--- NOTE | 2020-10-09 07:52 | PCM.PREANE ---
Preanesthetic Assessment - Procedure Proposed Procedure: EGD/Colonoscopy - Anesthesia/Transfusion/Family Hx Anesthesia History: Prior Anesthesia Without Reaction Family History of Anesthesia Reaction: No Transfusion History: No Prior Transfusion(s) - Review of Systems General: No Symptoms Pulmonary: Cough (smokers) Cardiovascular: No Symptoms Gastrointestinal: No Symptoms Neurological: Numbness (feet and at times fingers) Other: Reports: Anxiety - Physical Assessment NPO Status Date: 10/01/20 NPO Status Time: 00:00 Vital Signs: Last Vital Signs Temp 37.0 C 10/09/20 07:10 Pulse 95 10/09/20 07:10 Resp 20 10/09/20 07:10 BP 154/96 H 10/09/20 07:10 Pulse Ox 93 L 10/09/20 07:34 Height: 1.68 m Weight: 77.111 kg ASA Class: 3 Mental Status: Alert & Oriented x3 Airway Class: Mallampati = 1 Dentition: Reports: Dentures (top), Missing Tooth/Teeth Thyro-Mental Finger Breadths: 3 Mouth Opening Finger Breadths: 3 ROM/Head Extension: Full Lungs: Clear to Auscultation, Normal Respiratory Effort Cardiovascular: Regular Rate, Regular Rhythm - Allergies Allergies/Adverse Reactions: Allergies Allergy/AdvReac Type Severity Reaction Status Date / Time iodine Allergy Severe Airway Verified 10/09/20 07:37 Tightness azithromycin [From Zithromax] Allergy Cannot Verified 10/09/20 07:37 Remember bee pollen Allergy Cannot Verified 10/09/20 07:37 Remember glucosamine Allergy Cannot Verified 10/09/20 07:37 Remember ketorolac [From Toradol] Allergy Cannot Verified 10/09/20 07:37 Remember latex Allergy Cannot Verified 10/09/20 07:37 Remember metrizamide Allergy Cannot Verified 10/09/20 07:37 Remember shellfish derived Allergy Cannot Verified 10/09/20 07:37 Remember sodium phosphate Allergy Cannot Verified 10/09/20 07:37 Remember Sulfa (Sulfonamide Allergy Cannot Verified 10/09/20 07:37 Antibiotics) Remember sumatriptan [From Imitrex] Allergy Cannot Verified 10/09/20 07:37 Remember zolpidem [From Ambien] Allergy Cannot Verified 10/09/20 07:37 Remember - Blood Blood Available: No Product(s) Available: None - Anesthesia Plan Pre-Op Medication Ordered: Anxiolytic (versed 2mg) - Acknowledgements Anesthesia Type Planned: MAC Pt an Appropriate Candidate for the Planned Anesthesia: Yes Alternatives and Risks of Anesthesia Discussed w Pt/Guardian: Yes Pt/Guardian Understands and Agrees with Anesthesia Plan: Yes PreAnesthesia Questionnaire HEENT History: Reports: Allergic Rhinitis, Other (See Below) Other HEENT History: keratitis bullosa Cardiovascular History: Reports: None Respiratory History: Reports: COPD, Other (See Below) Other Respiratory History: nodules in lungs, uses bipap, nocturnal desaturation Gastrointestinal History: Reports: Chronic Constipation, Irritable Bowel Syndrome, Other (See Below) Other Gastrointestinal History: acid reflux, anorectal spasm Genitourinary History: Reports: Other (See Below) Other Genitourinary History: overactive bladder CANDY DIPPER HAND History: Reports: Endometriosis, Other (See Below) Other OB/BYN History: pelvic floor dysfunction Musculoskeletal History: Reports: Back Pain, Chronic, Fibromyalgia, RA, Other (See Below) Other Musculoskeletal History: restless leg syndrome, myotonic dystrophy, bone spur, ganglion cyst Neurological History: Reports: Migraines, Other (See Below) Other Neuro History: restless leg syndrome, lumbar stenosis with neurogenic claudication, lumbar degenerative disc disease Psychiatric History: Reports: Anxiety, PTSD, Other (See Below) Other Psychiatric History: chronic pain syndrome Endocrine/Metabolic History: Reports: None Hematologic History: Reports: None Immunologic History: Reports: None Oncologic (Cancer) History: Reports: Malignant Melanoma Dermatologic History: Reports: None - Infectious Disease History Infectious Disease History: Reports: None - Past Surgical History HEENT Surgical History: Reports: None Cardiovascular Surgical History: Reports: None Respiratory Surgical History: Reports: None GI Surgical History: Reports: Appendectomy, Cholecystectomy, Colonoscopy, Other (See Below) Other GI Surgeries/Procedures: rectal surgery Female Surgical History: Reports: Hysterectomy, Other (See Below) Endocrine Surgical History: Reports: None Neurological Surgical History: Reports: Lumbar Spine, Thoracic Spine Musculoskeletal Surgical History: Reports: Other (See Below) Other Musculoskeletal Surgeries/Procedures:: back- fusion L3-S1, right foot surgery, hand surgery Oncologic Surgical History: Reports: None Dermatological Surgical History: Reports: Other (See Below) - SUBSTANCE USE Tobacco Use Status *Q: Current Every Day Tobacco User - HOME MEDS Home Medications: Home Meds ALPRAZolam [Xanax] 1 mg PO Q8H PRN 10/08/20 [History] Baclofen 20 mg PO QID 10/08/20 [History] Fluticasone Propionate [Flonase] 1 dose NASBOTH DAILY 10/08/20 [History] Hydrocortisone [Anusol-HC] 1 dose RECTAL TID PRN 10/08/20 [History] Maxalt Web User Experience Strategist 10 mg PO ASDIRECTED PRN 10/08/20 [History] Mexiletine [Mexitil] 150 mg PO TID 10/08/20 [History] Promethazine [Phenergan] 25 mg PO Q4H PRN 10/08/20 [History] rOPINIRole [Requip] 1 mg PO 1700,2100 10/08/20 [History] traZODone 150 mg PO BEDTIME PRN 10/08/20 [History] Gabapentin [Neurontin] 2 cap PO QID 10/09/20 [History] - CURRENT (IN HOUSE) MEDS Current Meds: Current Medications Lactated Ringer's (Ringers, Lactated) 1,000 mls @ 125 mls/hr IV ASDIRECTED GIA Stop: 10/09/20 23:00 Last Admin: 10/09/20 07:20 Dose: 125 mls/hr Documented by: Lidocaine/Sodium Bicarbonate (Lidocaine 1%/Sod Bicarbonate In Ns 8.4% 1 Ml Syringe) 0.25 ml IDERM ONETIME PRN PRN Reason: Prior to IV Start Stop: 10/09/20 18:00 Last Admin: 10/09/20 07:20 Dose: 0.25 ml Documented by: Sodium Chloride (Sodium Chloride 0.9% 10 Ml Syringe) 10 ml FLUSH ASDIRECTED PRN PRN Reason: Keep Vein Open Stop: 10/09/20 18:00 Discontinued Medications Albuterol (Albuterol 0.083% 2.5 Mg/3 Ml Neb Soln) 2.5 mg NEB ONETIME ONE Stop: 10/09/20 00:02 Last Admin: 10/09/20 07:34 Dose: 2.5 mg Documented by: Albuterol (Albuterol 0.083% 2.5 Mg/3 Ml Neb Soln) Confirm Administered Dose 2.5 mg .ROUTE .STK-MED ONE Stop: 10/09/20 07:29 Last Admin: 10/09/20 07:34 Dose: Not Given Documented by: Fentanyl (Fentanyl 100 Mcg/2 Ml Sdv) Confirm Administered Dose 100 mcg .ROUTE .STK-MED ONE Stop: 10/09/20 07:36 Lidocaine HCl (Xylocaine-Mpf 1%) Confirm Administered Dose 4 mls @ as directed .ROUTE .STK-MED ONE Stop: 10/09/20 07:36 Midazolam HCl (Midazolam 1 Mg/Ml 2 Ml Sdv) Confirm Administered Dose 2 mg .ROUTE .STK-MED ONE Stop: 10/09/20 07:36 Propofol (Propofol 200 Mg/20 Ml Sdv) Confirm Administered Dose 200 mg .ROUTE .STK-MED ONE Stop: 10/09/20 07:35
[2020-10-09] MEDS ORDERED: Lactated Ringers 1,000 ML ONE (08:42)
--- NOTE | 2020-10-09 09:37 | PCM48HPAN ---
Post Anesthesia Note - EVALUATION WITHIN 48HRS OF ANESTHETIC Vital Signs in Normal Range: Yes Patient Participated in Evaluation: Yes Respiratory Function Stable: Yes Airway Patent: Yes Cardiovascular Function Stable: Yes Hydration Status Stable: Yes Pain Control Satisfactory: Yes Nausea and Vomiting Control Satisfactory: Yes Mental Status Recovered: Yes Vital Signs: Last Vital Signs Temp 37.0 C 10/09/20 07:10 Pulse 95 10/09/20 07:10 Resp 20 10/09/20 07:10 BP 154/96 H 10/09/20 07:10 Pulse Ox 93 L 10/09/20 07:34 - COMMENTS/OBSERVATIONS Free Text/Narrative:: no anesthesia complications noted
--- NOTE | 2020-10-09 09:39 | PCM.OPNOTE ---
- General Post-Op/Procedure Note Date of Surgery/Procedure: 10/09/20 Operative Procedure(s): EGD and colonoscopy with hemorrhoid banding Findings: 1. Hiatal hernia 2. Erythematous mucosal esophageal lesion in mid esophagus 3. Tissue abnormality in upper esophagus 4. Gastritis 5. Duodenitis 6. Diverticulosis 7. Ascending colon polyps x2 8. Internal hemorrhoids Pre Op Diagnosis: Upper and lower abdominal pain, nausea, bloating, hemorrhoids Post-Op Diagnosis: same Anesthesia Technique: MAC Primary Surgeon: Marylou Ballard Anesthesia Provider: Luis Mendoza Pathology: 1. Upper esophagus biopsy 2. Mid esophagus biopsy 3. Gastric antrum biopsy 4. Duodenal biopsy 5. Ascending colon polyps x2 Fluid Replacement, Intraop: 1,300 Output, Urine Amount: 0 EBL in mLs: 0 Complications: none apparent Condition: Good
--- NOTE | 2020-10-09 09:40 | PCM.PRNOTE ---
- Free Text/Narrative Note: Operative Report Date of Procedure: October 09, 2020 Pre Op Diagnosis: Lower and upper abdominal pain, hemorrhoids, nausea, bloating Post-Op Diagnosis: same Operative Procedures: 1. EGD with biopsy 2. Colonoscopy to the cecum with hemorrhoid banding Primary Surgeon: Marylou Ballard MD Anesthesia Provider: Luis Mendoza CRNA Anesthesia Technique: MAC IV Fluid Replacement, Intraop: 1300cc crystalloid Output, Urine Amount: 0cc EBL in mLs: 0cc Findings: 1. Hiatal hernia 2. Erythematous mucosal esophageal lesion in mid esophagus 3. Tissue abnormality in upper esophagus 4. Gastritis 5. Duodenitis 6. Diverticulosis 7. Ascending colon polyps x2 8. Internal hemorrhoids Specimens: 1. Upper esophagus biopsy 2. Mid esophagus biopsy 3. Gastric antrum biopsy 4. Duodenal biopsy 5. Ascending colon polyps x2 Drain/Tubes: None Indication: The patient is a 50-year-old lady who presented to the clinic with a thrombosed hemorrhoid that was treated in clinic. The patient reported symptoms of persistent abdominal pain with additional nausea and bloating. The patient was consented for a diagnostic EGD and colonoscopy with possible hemorrhoid banding. Risks of bleeding, and perforation were discussed, and the patient agreed to the risks and wished to proceed. Description of the procedure: The patient was taken back to the endoscopy suite, and placed in the left lateral decubitus position. A bite block was placed. The patient was sedated with MAC anesthesia. The Olympus video endoscope was inserted into the oropharynx and guided under direct vision into the esophagus, stomach, and duodenum. The second portion of the duodenum was unremarkable, but the duodenal bulb was flattened consistent with duodenitis and biopsies were taken with a cold biopsy forceps. The gastric antrum was inspected and cold biopsy forceps were used to take tissue samples for H. pylori. Gastritis was noted in the an trum The scope was withdrawn to the stomach and retroflexed. There was no increased fluid, food or secretions in the upper gastrointestinal tract. No erosions or ulcers were noted. The scope was withdrawn to the esophagus. A this point we noted a small sliding hiatal hernia. Not Barretts esophagus changes were noted. The endoscope was then withdrawn into the esophagus while inspecting the mucosa. An erythematous lesion was seen in the mid-esophagus and biopsied with a cold biopsy forceps. A patch of abnormal appearing tissue was seen in the upper esophagus and biopsied with a cold biopsy forceps. The scope was then removed. Next, anorectal examination was performed. No lesions, masses or hemorrhoids were noted externally or on palpation. The scope was placed into the rectum and advanced to cecum. Upon reaching the cecum, and the patients cecum was entered. There was moderate tortuosity of the colon. The ileocecal valve was well visualized and the appendiceal orifice identified. At this point, the scope was slowly withdrawn, paying attention to the mucosa. The patient had good bowel prep, 90-95% of the mucosa was visible. Two ascending colon polyps were seen measuring 6-8mm each and were removed with a jumbo cold biopsy forceps noted. The patient had diverticulosis with multiple, small-mouthed diverticula in the left colon. In the rectum, scope was retroflexed and some hemorrhoidal tissue was noted. The scope was placed back in the lumen and excess air was aspirated. A hemorrhoid pet caregiver was placed over the end of the scope and 2 bands deployed on the hemorrhoid tissue using the assistance of an anoscope for visualization. The scope and anoscope was then removed. The patient tolerated the procedure very well. Complications: None apparent Condition: The patient was transported to PACU in stable condition. Marylou Ballard MD General Surgery
[2020-10-09 09:42] VITALS: BP 113/67; PULSE 91
== END 2020-10-09 10:02 | disposition home or self-care (01) ==
LOC: JD.SDS 07:06
PROVIDERS: ATTEND Surgery
DX: D12.2 Benign neoplasm of ascending colon (principal); K44.9 Diaphragmatic hernia without obstruction or gangrene; K64.8 Other hemorrhoids; K57.30 Diverticulosis of large intestine without perforation or abscess without bleeding; K31.89 Other diseases of stomach and duodenum; K63.89 Other specified diseases of intestine; J44.9 Chronic obstructive pulmonary disease, unspecified; K64.5 Perianal venous thrombosis; F17.210 Nicotine dependence, cigarettes, uncomplicated; Z88.0 Allergy status to penicillin; Z88.2 Allergy status to sulfonamides; Z88.6 Allergy status to analgesic agent; Z91.013 Allergy to seafood; Z91.030 Bee allergy status; Z91.040 Latex allergy status
CPT/HCPCS: 43239; 45380; 45398; J2250; J2704; J3010; J7120; 00813

== ENCOUNTER 2021-02-22 22:39 | Emergency (ER) | payer BC ==
[2021-02-23 00:19] VITALS: BP 155/97; PULSE 88
--- NOTE | 2021-02-23 00:40 | EDM.PDOC ---
ED HPI GENERAL MEDICAL PROBLEM - General Chief Complaint: Allergic Reaction Stated Complaint: ALLERGIC REACTION-SWOLLEN LT ARM/THROAT COMPLAINT Time Seen by Provider: 02/23/21 00:21 Source of Information: Reports: Patient, Significant Other (Boyfriend) History Limitations: Reports: No Limitations - History of Present Illness INITIAL COMMENTS - FREE TEXT/NARRATIVE: Ms. Gonzalez is a very pleasant 50-year-old woman who now presents to the ED stating that she developed proximal left forearm swelling around 18:30 to 19:00 last evening, 02/22/2021, while gardening. She states that it is possible that her arm was poked or scratched by some of the weeds that she was pulling. The patient states that she took some oral diphenhydramine, and applied topical diphenhydramine cream, neither of which helped her symptoms. The patient states that shortly after her arm started swelling, she started feeling like her throat was swelling. She acknowledges that she has not been wheezing, and that she is not dyspneic. She denies having any gastrointestinal symptoms. The patient states that she will feel itchy if she sits in grass, although she has not previously experienced swelling like this. Here in the ED, the patient's initial BP was elevated at 173/106, otherwise, she is hemodynamically stable, afebrile, saturating 97% on room air. A subsequent BP was 155/97. Prior to last evening, the patient denies having a recent fever, chills, sore throat, ear pain, nasal or sinus congestion, cough, dyspnea, chest pain, palpitations, nausea, vomiting, constipation, diarrhea, abdominal pain, urinary symptoms, recent weight gain or weight loss, recent bloody bowel movements or black bowel movements, recent joint aches, headaches, or rashes. I reviewed the PMHx/PSHx/SocHx, which was reviewed with the patient by the RN. The patient's PCP is Dr. Eliud Kothari. Her pain legal records manager is Dr. Alonso Llamas. Her Surgeon is Dr. Annie Ballard. She has not received a COVID vaccination. - Related Data Allergies Allergy/AdvReac Type Severity Reaction Status Date / Time iodine Allergy Severe Airway Verified 02/22/21 23:14 Tightness azithromycin [From Zithromax] Allergy Cannot Verified 02/22/21 23:14 Remember bee pollen Allergy Cannot Verified 02/22/21 23:14 Remember glucosamine Allergy Cannot Verified 02/22/21 23:14 Remember ketorolac [From Toradol] Allergy Cannot Verified 02/22/21 23:14 Remember latex Allergy Cannot Verified 02/22/21 23:14 Remember metrizamide Allergy Cannot Verified 02/22/21 23:14 Remember shellfish derived Allergy Cannot Verified 02/22/21 23:14 Remember sodium phosphate Allergy Cannot Verified 02/22/21 23:14 Remember Sulfa (Sulfonamide Allergy Cannot Verified 02/22/21 23:14 Antibiotics) Remember sumatriptan [From Imitrex] Allergy Cannot Verified 02/22/21 23:14 Remember zolpidem [From Ambien] Allergy Cannot Verified 02/22/21 23:14 Remember Home Meds: Home Meds ALPRAZolam [Xanax] 1 mg PO Q8H PRN 10/08/20 [History] Baclofen 20 mg PO QID 10/08/20 [History] Fluticasone Propionate [Flonase] 1 dose NASBOTH DAILY 10/08/20 [History] Hydrocortisone [Anusol-HC] 1 dose RECTAL TID PRN 10/08/20 [History] Maxalt Ase Master Mechanic 10 mg PO ASDIRECTED PRN 10/08/20 [History] Mexiletine [Mexitil] 150 mg PO TID 10/08/20 [History] Promethazine [Phenergan] 25 mg PO Q4H PRN 10/08/20 [History] rOPINIRole [Requip] 1 mg PO 1700,2100 10/08/20 [History] traZODone 150 mg PO BEDTIME PRN 10/08/20 [History] Docusate Sodium [Colace] 100 mg PO BID #60 capsule 10/09/20 [Rx] Gabapentin [Neurontin] 2 cap PO QID 10/09/20 [History] Past Medical History HEENT History: Reports: Allergic Rhinitis Respiratory History: Reports: COPD, Other (See Below) Other Respiratory History: nodules in lungs, uses bipap, nocturnal desaturation Gastrointestinal History: Reports: GERD, Irritable Bowel Syndrome Genitourinary History: Reports: Other (See Below) (Spastic bladder) AUTOMATIC DRILLER AND REAMER History: Reports: Endometriosis, Other (See Below) Other AUTOMATIC DRILLER AND REAMER History: pelvic floor dysfunction Musculoskeletal History: Reports: Back Pain, Chronic, Fibromyalgia, RA, Other (See Below) Other Musculoskeletal History: restless leg syndrome, myotonic dystrophy, bone spur, ganglion cyst Neurological History: Reports: Migraines, Other (See Below) Other Neuro History: restless leg syndrome, lumbar stenosis with neurogenic claudication, lumbar degenerative disc disease Psychiatric History: Reports: Anxiety, PTSD, Other (See Below) Other Psychiatric History: chronic pain syndrome Oncologic (Cancer) History: Reports: Malignant Melanoma - Past Surgical History HEENT Surgical History: Reports: None Cardiovascular Surgical History: Reports: None Respiratory Surgical History: Reports: None GI Surgical History: Reports: Appendectomy, Cholecystectomy, Colonoscopy, Other (See Below) Other GI Surgeries/Procedures: rectal surgery Female Surgical History: Reports: Hysterectomy, Other (See Below) Endocrine Surgical History: Reports: None Neurological Surgical History: Reports: Lumbar Spine, Thoracic Spine Musculoskeletal Surgical History: Reports: Other (See Below) Other Musculoskeletal Surgeries/Procedures:: back- fusion L3-S1, right foot surgery, hand surgery Oncologic Surgical History: Reports: None Dermatological Surgical History: Reports: Other (See Below) Social & Family History - Tobacco Use Tobacco Use Status *Q: Unknown Ever Used Tobacco - Caffeine Use Caffeine Use: Reports: Coffee, Soda, Tea - Living Situation & Occupation Living situation: Reports: Occupation: Unemployed ED ROS ALLERGIC REACTION - Review of Systems Review Of Systems: Comprehensive ROS is negative, except as noted in HPI. ED EXAM GENERAL NO PERIP PULSE - Physical Exam Exam: See Below Exam Limited By: No Limitations General Appearance: Alert, WD/WN, No Apparent Distress Eye Exam: Bilateral Eye: EOMI, Normal Inspection Ears: Normal External Exam, Normal Canal, Hearing Grossly Normal, Normal TMs Nose: Normal Inspection, Normal Mucosa, No Blood Throat/Mouth: Normal Inspection, Normal Lips (no swelling), Normal Teeth, Normal Gums, Normal Oropharynx (no tongue or uvular swelling), Normal Voice, No Airway Compromise Head: Atraumatic, Normocephalic Neck: Normal Inspection, Supple, Non-Tender, Full Range of Motion. No: Lymphadenopathy (L), Lymphadenopathy (R) Respiratory/Chest: No Respiratory Distress, Lungs Clear, Normal Breath Sounds, No Accessory Muscle Use. No: Decreased Breath Sounds, Crackles, Rhonchi, Wheezing, Stridor, Prolonged Expiration Cardiovascular: Normal Peripheral Pulses, Regular Rate, Rhythm, No Edema, No Gallop, No JVD, No Murmur, No Rub GI/Abdominal: Normal Bowel Sounds, Soft, Non-Tender, No Organomegaly, No Distention, No Abnormal Bruit, No Mass Back Exam: Normal Inspection, Full Range of Motion, NT Extremities: Normal Range of Motion, Normal Capillary Refill, Other (Localized edema over the proximal left dorsal and ventral forearm. Slight erythema, but no associated calor. Neurovascular status of the left upper extremity is intact.) Neurological: Alert, Oriented, Normal Cognition, No Motor/Sensory Deficits Psychiatric: Normal Affect Skin Exam: Warm, Dry, Intact, Normal Color, No Rash Course - Vital Signs Last Recorded V/S: Last Vital Signs Temp 36.9 C 02/22/21 23:11 Pulse 88 02/23/21 00:15 Resp 22 H 02/23/21 00:15 BP 155/97 H 02/23/21 00:15 Pulse Ox 91 L 02/23/21 00:15 - Orders/Labs/Meds Meds: Medications Discontinued Medications Generic Name Dose Route Start Last Admin Trade Name Marcos PRN Reason Stop Dose Admin Cetirizine HCl 5 mg 02/23/21 00:44 02/23/21 00:54 Cetirizine 1 Mg/Ml Solution Ml 120 Ml Bottle PO 02/23/21 00:45 5 mg ONETIME STA Administration - Re-Assessments/Exams Free Text/Narrative Re-Assessment/Exam: 02/23/21 00:34 The patient is suffering from a local inflammatory reaction, presumably to the toxin from a weed that she was exposed to while gardening. This is not a systemic allergic reaction. Treatment is a nonsedating antihistamine, such as Gisela (fexofenadine) or Zyrtec (cetirizine), and ice packs, at least 5 times a day. She will need to be patient, as this may take 10 to 12 days before it resolves. 02/23/21 00:45 Notified by Rehana REYES that the patient would like to take some cetirizine now. We only carry the children's formula, but I ordered 5 mL of it. Departure - Departure Time of Disposition: 00:35 Disposition: Home, Self-Care 01 Condition: Good Clinical Impression: Localized swelling of left forearm - Discharge Information *PRESCRIPTION DRUG MONITORING PROGRAM REVIEWED*: Not Applicable *COPY OF PRESCRIPTION DRUG MONITORING REPORT IN PATIENT SUMI: Not Applicable Instructions: Allergies, Adult Referrals: Eliud Kothari MD [Primary Care Provider] - Marylou Ballard MD [Physician] - Alonso Llamas MD [Ordering Only Provider] - Forms: ED Department Discharge Additional Instructions: You were seen in the emergency room after developing swelling to your left forearm while gardening. Based on your history and physical examination, you are suffering from a local inflammatory reaction, possibly due to a plant toxin. We recommend you take an [id number] nonsedating antihistamine, such as Gisela (fexofenadine) or Zyrtec (cetirizine), as directed on the label. Generics are just as good as the brand name. We recommend that you apply ice packs to your forearm for 10 to 15 minutes, at least 5 times a day. You will need to be patient - the swelling may take 10 to 12 days before completely resolves. If any other problems, please do not hesitate to return to the ER. Sepsis Event Note (ED) - Evaluation Sepsis Screening Result: No Definite Risk
[2021-02-23] MEDS ORDERED: Cetirizine 1 MG/ML Solution ML 120 ML Bottle PO STA (00:44)
== END 2021-02-23 01:04 | disposition home or self-care (01) ==
LOC: JD.ED 22:39
DX: R22.32 Localized swelling, mass and lump, left upper limb (principal); J44.9 Chronic obstructive pulmonary disease, unspecified; M06.9 Rheumatoid arthritis, unspecified; Z88.8 Allergy status to other drugs, medicaments and biological substances; Z88.1 Allergy status to other antibiotic agents; Z91.030 Bee allergy status; Z88.5 Allergy status to narcotic agent; Z91.040 Latex allergy status; Z91.013 Allergy to seafood; Z88.2 Allergy status to sulfonamides; Z79.899 Other long term (current) drug therapy
CPT/HCPCS: 99283; A9270

== ENCOUNTER 2021-04-28 05:08 | Emergency (ER) | payer BC ==
[2021-04-28 05:35] VITALS: BP 164/98; PULSE 99
--- NOTE | 2021-04-28 05:54 | EDM.PDOC ---
ED HPI GENERAL MEDICAL PROBLEM - General Chief Complaint: Lower Extremity Injury/Pain Stated Complaint: RT FT INJURY Time Seen by Provider: 04/28/21 05:46 Source of Information: Reports: Patient History Limitations: Reports: No Limitations - History of Present Illness INITIAL COMMENTS - FREE TEXT/NARRATIVE: Ms. Gonzalez is a very pleasant 50-year-old woman who now presents to the ED stating that she likely slept walked and was asleep on the toilet for a prolonged period of time last night. When she woke up around 04:00, she discovered her right leg and had become tingly and numb. She stood up and began to walk, then felt a "pop" in her right foot, and since then, she has had pain to the middle of her right foot. She states that she previously broke her right foot. No home treatment prior to coming to the ED. Here in the ED, the patient's initial BP is found to be elevated at 164/98, otherwise, she is hemodynamically stable, afebrile, saturating 95% on room air. She appears to be comfortable, in no acute distress. Other than her right foot issue, the patient denies having a recent fever, chills, sore throat, ear pain, nasal or sinus congestion, cough, dyspnea, chest pain, palpitations, nausea, vomiting, constipation, diarrhea, abdominal pain, urinary symptoms, recent weight gain or weight loss, recent bloody bowel movements or black bowel movements, recent joint aches, headaches, or rashes. I reviewed the PMHx/PSHx/SocHx, which was reviewed with the patient by the RN. The patient's PCP is Dr. Eliud Kothari. Her pain manager merchandise is Dr. Alonso Llamas. Her Surgeon is Dr. Marylou Ballard. She has not received a COVID vaccination, but did receive an influenza vaccination this season. Right Foot Pain Score (Numeric/FACES): 9 - Related Data Allergies Allergy/AdvReac Type Severity Reaction Status Date / Time iodine Allergy Severe Airway Verified 04/28/21 05:36 Tightness azithromycin [From Zithromax] Allergy Unknown Cannot Verified 04/28/21 05:36 Remember bee pollen Allergy Unknown Cannot Verified 04/28/21 05:36 Remember glucosamine Allergy Unknown Cannot Verified 04/28/21 05:36 Remember ketorolac [From Toradol] Allergy Unknown Cannot Verified 04/28/21 05:36 Remember latex Allergy Unknown Cannot Verified 04/28/21 05:36 Remember metrizamide Allergy Unknown Cannot Verified 04/28/21 05:36 Remember shellfish derived Allergy Unknown Cannot Verified 04/28/21 05:36 Remember sodium phosphate Allergy Unknown Cannot Verified 04/28/21 05:36 Remember Sulfa (Sulfonamide Allergy Unknown Cannot Verified 04/28/21 05:36 Antibiotics) Remember sumatriptan [From Imitrex] Allergy Unknown Cannot Verified 04/28/21 05:36 Remember zolpidem [From Ambien] Allergy Unknown Cannot Verified 04/28/21 05:36 Remember Home Meds: Home Meds ALPRAZolam [Xanax] 1 mg PO Q8H PRN 10/08/20 [History] Baclofen 20 mg PO QID 10/08/20 [History] Fluticasone Propionate [Flonase] 1 dose NASBOTH DAILY 10/08/20 [History] Hydrocortisone [Anusol-HC] 1 dose RECTAL TID PRN 10/08/20 [History] Maxalt [employer] Installer 10 mg PO ASDIRECTED PRN 10/08/20 [History] Mexiletine [Mexitil] 150 mg PO TID 10/08/20 [History] Promethazine [Phenergan] 25 mg PO Q4H PRN 10/08/20 [History] rOPINIRole [Requip] 1 mg PO 1700,2100 10/08/20 [History] traZODone 150 mg PO BEDTIME PRN 10/08/20 [History] Docusate Sodium [Colace] 100 mg PO BID #60 capsule 10/09/20 [Rx] Gabapentin [Neurontin] 2 cap PO QID 10/09/20 [History] Past Medical History HEENT History: Reports: Allergic Rhinitis Other HEENT History: keratitis bullosa Cardiovascular History: Reports: None Respiratory History: Reports: COPD, Other (See Below) Other Respiratory History: nodules in lungs, uses bipap, nocturnal desaturation Gastrointestinal History: Reports: GERD, Irritable Bowel Syndrome Other Gastrointestinal History: acid reflux, anorectal spasm Genitourinary History: Reports: Other (See Below) (Spastic bladder) Other Genitourinary History: overactive bladder CLINICAL PSYCHOLOGIST LICENSED History: Reports: Endometriosis, Other (See Below) Other CLINICAL PSYCHOLOGIST LICENSED History: pelvic floor dysfunction Musculoskeletal History: Reports: Back Pain, Chronic, Fibromyalgia, RA, Other (See Below) Other Musculoskeletal History: restless leg syndrome, myotonic dystrophy, bone spur, ganglion cyst Neurological History: Reports: Migraines, Other (See Below) Other Neuro History: restless leg syndrome, lumbar stenosis with neurogenic claudication, lumbar degenerative disc disease Psychiatric History: Reports: Anxiety, PTSD, Other (See Below) Other Psychiatric History: chronic pain syndrome Endocrine/Metabolic History: Reports: None Hematologic History: Reports: None Immunologic History: Reports: None Oncologic (Cancer) History: Reports: Malignant Melanoma Dermatologic History: Reports: None - Infectious Disease History Infectious Disease History: Reports: None - Past Surgical History HEENT Surgical History: Reports: None Cardiovascular Surgical History: Reports: None Respiratory Surgical History: Reports: None GI Surgical History: Reports: Appendectomy, Cholecystectomy, Colonoscopy, Other (See Below) Other GI Surgeries/Procedures: rectal surgery Female Surgical History: Reports: Hysterectomy, Other (See Below) Endocrine Surgical History: Reports: None Neurological Surgical History: Reports: Lumbar Spine, Thoracic Spine Musculoskeletal Surgical History: Reports: Other (See Below) Other Musculoskeletal Surgeries/Procedures:: back- fusion L3-S1, right foot surgery, hand surgery Oncologic Surgical History: Reports: None Dermatological Surgical History: Reports: Other (See Below) Social & Family History - Family History Family Medical History: No Pertinent Family History - Caffeine Use Caffeine Use: Reports: Coffee, Soda, Tea - Living Situation & Occupation Living situation: Reports: Occupation: Unemployed Review of Systems - Review of Systems Review Of Systems: Comprehensive ROS is negative, except as noted in HPI. ED EXAM, GENERAL - Physical Exam Exam: See Below Exam Limited By: No Limitations General Appearance: Alert, WD/WN, No Apparent Distress Extremities: Other (No visible abnormality to the right foot, when compared to the left, such as swelling, erythema, ecchymosis, or abrasion, although the patient reports tenderness to palpation over the dorsal aspects of the 3rd and 4th metatarsals, as well as to palpation of the sole of her foot. Good distal pulses.) Course - Vital Signs Last Recorded V/S: Last Vital Signs Temp 36.3 C 04/28/21 05:24 Pulse 99 04/28/21 05:24 Resp 18 04/28/21 05:24 BP 164/98 H 04/28/21 05:24 Pulse Ox 95 04/28/21 05:24 - Orders/Labs/Meds Orders: Active Orders 24 hr Category Date Time Status Foot Comp Min 3V Rt [CR] Stat Exams 04/28/21 05:53 Taken - Re-Assessments/Exams Free Text/Narrative Re-Assessment/Exam: 04/28/21 05:53 I have ordered x-rays of the right foot to evaluate. 04/28/21 06:24 3-view radiographs of the right foot appear to be grossly normal, with no fractures or dislocations identified. Formal read per the Radiologist pending. 04/28/21 06:27 X-ray results discussed with the patient. She likely strained her right foot. I explained that she should be able to walk on it, and would not actually harm her foot. It will likely be sore initially, but should improve fairly quickly. Departure - Departure Time of Disposition: 06:28 Disposition: Home, Self-Care 01 Condition: Good Clinical Impression: Right foot pain - Discharge Information *PRESCRIPTION DRUG MONITORING PROGRAM REVIEWED*: Not Applicable *COPY OF PRESCRIPTION DRUG MONITORING REPORT IN PATIENT SUMI: Not Applicable Referrals: Eliud Kothari MD [Primary Care Provider] - Alonso Llamas MD [Ordering Only Provider] - Marylou Ballard MD [Physician] - Forms: ED Department Discharge Additional Instructions: You were seen in the emergency room after your right leg and foot fell asleep while you were on the toilet for prolonged period of time, then felt a pop and developed right foot pain when you began to walk. Work-up in the ER included x-rays of your right foot, which returned normal, with no broken bones or dislocations seen. Based on your history, physical exam, and ER x-rays, you have most likely strained or contused your right foot. We recommend that you take [id number] ibuprofen or Tylenol as needed for discomfort. While you may have pain initially, you should be reassured that there is no significant damage to your foot, and that you can walk on it without harming yourself. If any other problems, please do not hesitate to return to the ER. Sepsis Event Note (ED) - Evaluation Sepsis Screening Result: No Definite Risk - Focused Exam Vital Signs: Vital Signs Temp Pulse Resp BP Pulse Ox 04/28/21 05:24 36.3 C 99 18 164/98 H 95 - My Orders Last 24 Hours: My Active Orders 04/28/21 05:53 Foot Comp Min 3V Rt [CR] Stat - Assessment/Plan Last 24 Hours: My Active Orders 04/28/21 05:53 Foot Comp Min 3V Rt [CR] Stat
--- NOTE | 2021-04-28 07:01 | CR ---
Right foot: 3 views of the right foot were obtained. Comparison: No previous foot study is available. Bunion deformity is seen. Joint space narrowing is also noted within the first MTP joint. Small plantar spur is seen. Spur is noted at the attachment of the Achilles tendon to the calcaneus. Fracture is identified within the base of the fifth metatarsal which shows no displacement. Ununited os navicularis is seen. Impression: 1. Nondisplaced fracture involving the base of the fifth metatarsal. 2. Other findings believed to be chronic as noted above. Diagnostic code #3
== END 2021-04-28 06:45 | disposition home or self-care (01) ==
LOC: JD.ED 05:08
DX: M79.671 Pain in right foot (principal); J44.9 Chronic obstructive pulmonary disease, unspecified; K21.9 Gastro-esophageal reflux disease without esophagitis; Z91.040 Latex allergy status; Z91.030 Bee allergy status; Z88.2 Allergy status to sulfonamides; Z88.1 Allergy status to other antibiotic agents; Z88.6 Allergy status to analgesic agent; Z79.899 Other long term (current) drug therapy
CPT/HCPCS: 73630-26-RT; 73630-RT; 99283

== ENCOUNTER 2021-04-28 11:09 | Emergency (ER) | payer BC | END 2021-04-28 11:24 | disposition left against medical advice (07) | LOC: JD.ED 11:09 | DX: Z53.21 Procedure and treatment not carried out due to patient leaving prior to being seen by health care provider (principal) ==

== ENCOUNTER 2021-05-20 20:32 | Inpatient (IN) | payer BC ==
[2021-05-20] MEDS ORDERED: Sodium Chloride 0.9% 10 ML Syringe FLUSH PRN (21:13)
[2021-05-20] MEDS ORDERED: Dexamethasone 6 MG TABLET PO ONE (21:50)
--- NOTE | 2021-05-20 21:55 | EDM.PDOC ---
ED HPI GENERAL MEDICAL PROBLEM - General Chief Complaint: Respiratory Problem Stated Complaint: CHEST TIGHTNESS/COVID+ Time Seen by Provider: 05/20/21 21:00 Source of Information: Reports: Patient, RN Notes Reviewed History Limitations: Reports: No Limitations - History of Present Illness INITIAL COMMENTS - FREE TEXT/NARRATIVE: Patient is a 50-year-old female presenting to the emergency department with concerns of worsening Covid symptoms. Symptoms began approximately 3 days ago. She tested positive for Covid yesterday and received monoclonal antibody infusion at the clinic today. She complains of fever, chills, cough, sore throat, body aches, headache, nausea, loss of taste and smell, and diarrhea. Patient states she is been checking her oxygen saturations at home and they have been in the 70s and 80s. Patient's reports that when her oxygen is at 70s, she becomes "loopy "and seems confused. She has been using Tylenol and ibuprofen for treatment of fever and body aches. Documentation in our system show patient has a history of COPD, however she reports she had pulmonary function testing completed a few weeks back and that she passed these. She does have a history of sleep apnea for which she is supposed to wear CPAP, however she has not been wearing it as she was told that she is not supposed to. Her CPAP is also been recalled. Patient is a current [id number] smoker. She was not vaccinated against Covid. Chest Pain Score (Numeric/FACES): 4 - Related Data Allergies Allergy/AdvReac Type Severity Reaction Status Date / Time iodine Allergy Severe Airway Verified 05/21/21 07:54 Tightness azithromycin [From Zithromax] Allergy Unknown Cannot Verified 05/21/21 07:54 Remember bee pollen Allergy Unknown Cannot Verified 05/21/21 07:54 Remember glucosamine Allergy Unknown Cannot Verified 05/21/21 07:54 Remember ketorolac [From Toradol] Allergy Unknown Cannot Verified 05/21/21 07:54 Remember latex Allergy Unknown Cannot Verified 05/21/21 07:54 Remember metrizamide Allergy Unknown Cannot Verified 05/21/21 07:54 Remember shellfish derived Allergy Unknown Cannot Verified 05/21/21 07:54 Remember sodium phosphate Allergy Unknown Cannot Verified 05/21/21 07:54 Remember Sulfa (Sulfonamide Allergy Unknown Cannot Verified 05/21/21 07:54 Antibiotics) Remember sumatriptan [From Imitrex] Allergy Unknown Cannot Verified 05/21/21 07:54 Remember zolpidem [From Ambien] Allergy Unknown Cannot Verified 05/21/21 07:54 Remember Home Meds: Home Meds ALPRAZolam [Xanax] 1 mg PO Q8H PRN 10/08/20 [History] Baclofen 20 mg PO QID 10/08/20 [History] Fluticasone Propionate [Flonase] 1 dose NASBOTH DAILY 10/08/20 [History] Hydrocortisone [Anusol-HC] 1 dose RECTAL TID PRN 10/08/20 [History] Maxalt Code Machine Operator 10 mg PO ASDIRECTED PRN 10/08/20 [History] Mexiletine [Mexitil] 150 mg PO TID 10/08/20 [History] Promethazine [Phenergan] 25 mg PO Q4H PRN 10/08/20 [History] rOPINIRole [Requip] 1 mg PO 1700,2100 10/08/20 [History] traZODone 150 mg PO BEDTIME PRN 10/08/20 [History] Docusate Sodium [Colace] 100 mg PO BID #60 capsule 10/09/20 [Rx] Gabapentin [Neurontin] 600 mg PO QID 10/09/20 [History] Past Medical History HEENT History: Reports: Allergic Rhinitis Other HEENT History: keratitis bullosa Cardiovascular History: Reports: None Respiratory History: Reports: COPD, Other (See Below) Other Respiratory History: nodules in lungs, uses bipap, nocturnal desaturation Gastrointestinal History: Reports: GERD, Irritable Bowel Syndrome Other Gastrointestinal History: acid reflux, anorectal spasm Genitourinary History: Reports: Other (See Below) Other Genitourinary History: overactive bladder ELECTRIC REFRIGERATOR SERVICER History: Reports: Endometriosis, Other (See Below) Other ELECTRIC REFRIGERATOR SERVICER History: pelvic floor dysfunction Musculoskeletal History: Reports: Back Pain, Chronic, Fibromyalgia, RA, Other (See Below) Other Musculoskeletal History: restless leg syndrome, myotonic dystrophy, bone spur, ganglion cyst Neurological History: Reports: Migraines, Other (See Below) Other Neuro History: restless leg syndrome, lumbar stenosis with neurogenic claudication, lumbar degenerative disc disease Psychiatric History: Reports: Anxiety, PTSD, Other (See Below) Other Psychiatric History: chronic pain syndrome Endocrine/Metabolic History: Reports: None Hematologic History: Reports: None Immunologic History: Reports: None Oncologic (Cancer) History: Reports: Malignant Melanoma Dermatologic History: Reports: None - Infectious Disease History Infectious Disease History: Reports: None - Past Surgical History HEENT Surgical History: Reports: None Cardiovascular Surgical History: Reports: None Respiratory Surgical History: Reports: None GI Surgical History: Reports: Appendectomy, Cholecystectomy, Colonoscopy, Other (See Below) Other GI Surgeries/Procedures: rectal surgery Female Surgical History: Reports: Hysterectomy, Other (See Below) Endocrine Surgical History: Reports: None Neurological Surgical History: Reports: Lumbar Spine, Thoracic Spine Musculoskeletal Surgical History: Reports: Other (See Below) Other Musculoskeletal Surgeries/Procedures:: back- fusion L3-S1, right foot surgery, hand surgery Oncologic Surgical History: Reports: None Dermatological Surgical History: Reports: Other (See Below) Social & Family History - Family History Family Medical History: No Pertinent Family History - Tobacco Use Tobacco Use Status *Q: Current Every Day Tobacco User Years of Tobacco use: 30 Packs/Tins Daily: 1 - Caffeine Use Caffeine Use: Reports: Coffee, Soda, Tea - Recreational Drug Use Recreational Drug Use: No - Living Situation & Occupation Living situation: Reports: Occupation: Unemployed ED ROS GENERAL - Review of Systems Review Of Systems: See Below Constitutional: Reports: Fever, Chills, Weakness, Fatigue, Decreased Appetite HEENT: Reports: Throat Pain Respiratory: Reports: Shortness of Breath, Pleuritic Chest Pain, Cough, Sputum Cardiovascular: Reports: Dyspnea on Exertion. Denies: Syncope Endocrine: Reports: No Symptoms GI/Abdominal: Reports: Diarrhea, Nausea. Denies: Abdominal Pain, Vomiting : Reports: No Symptoms Musculoskeletal: Reports: Other (Generalized body aches) Skin: Reports: No Symptoms Neurological: Reports: Headache Psychiatric: Reports: No Symptoms Hematologic/Lymphatic: Reports: No Symptoms Immunologic: Reports: No Symptoms ED EXAM, GENERAL - Physical Exam Exam: See Below Exam Limited By: No Limitations General Appearance: Alert, WD/WN, No Apparent Distress Respiratory/Chest: No Respiratory Distress, No Accessory Muscle Use, Chest Non- Tender, Decreased Breath Sounds, Rhonchi (Bilateral lower lobes posteriorly) Cardiovascular: Normal Peripheral Pulses, Regular Rate, Rhythm, No Edema, No Gallop, No JVD, No Murmur, No Rub GI/Abdominal: Normal Bowel Sounds, Soft, Non-Tender, No Organomegaly, No Distention, No Abnormal Bruit, No Mass Neurological: Alert, Oriented, Normal Cognition, Normal Gait, No Motor/Sensory Deficits Psychiatric: Normal Affect, Normal Mood Skin Exam: Warm, Dry, Intact, Normal Color, No Rash #1 Interpretation EKG Date: 05/20/21 Time: 21:50 Rhythm: NSR Rate (Beats/Min): 107 [place]ett: Normal P-Wave: Present QRS: Normal ST-T: Normal QT: Normal Course - Vital Signs Last Recorded V/S: Last Vital Signs Temp 99 F 05/21/21 20:00 Pulse 97 05/21/21 20:00 Resp 23 H 05/21/21 20:00 BP 98/58 L 05/21/21 20:00 Pulse Ox 95 05/21/21 20:00 - Orders/Labs/Meds Orders: Active Orders 24 hr Category Date Time Status Peripheral IV Care [RC] . DIRECTED Care 05/20/21 21:14 Active Sodium Chloride 0.9% [Saline Flush] Med 05/20/21 21:13 Active 10 ml FLUSH ASDIRECTED PRN Peripheral IV Insertion Adult [OM.PC] Stat Oth 05/20/21 21:13 Ordered Medication Orders Acetaminophen (Acetaminophen 325 Mg Tab) 650 mg PO Q4H PRN PRN Reason: Fever Greater Than 101 Albuterol (Albuterol 0.083% 2.5 Mg/3 Ml Neb Soln) 2.5 mg NEB Q2H PRN PRN Reason: Shortness Of Breath/wheezing Albuterol (Albuterol 6.7 Gm Inhaler) 0 gm INH Q2H PRN PRN Reason: SOB/Wheezing Last Admin: 05/21/21 08:42 Dose: 2 each Documented by: DORIAN Albuterol/Ipratropium (Albuterol/Ipratropium 3.0-0.5 Mg/3 Ml Neb Soln) 3 ml NEB QIDRT PRN PRN Reason: Shortness Of Breath/wheezing Alprazolam (Alprazolam 1 Mg Tab) 1 mg PO Q8H PRN PRN Reason: Anxiety Baclofen (Baclofen 10 Mg Tab) 20 mg PO QID GIA Last Admin: 05/21/21 20:08 Dose: 20 mg Documented by: Admin: 05/21/21 16:51 Dose: 20 mg Documented by: MARIA T Admin: 05/21/21 12:36 Dose: 20 mg Documented by: Admin: 05/21/21 08:18 Dose: 20 mg Documented by: MARIA T Dexamethasone (Dexamethasone 4 Mg Tab) 6 mg PO DAILY [facility] Stop: 05/29/21 09:01 Last Admin: 05/21/21 08:19 Dose: 6 mg Documented by: MARIA T Docusate Sodium (Docusate Sodium 100 Mg Cap) 100 mg PO BID [facility] Last Admin: 05/21/21 20:07 Dose: Not Given Documented by: Admin: 05/21/21 08:18 Dose: 100 mg Documented by: MARIA T Enoxaparin Sodium (Enoxaparin 40 Mg/0.4 Ml Syringe) 40 mg SUBCUT DAILY [facility] Last Admin: 05/21/21 08:18 Dose: 40 mg Documented by: MARIA T Famotidine (Famotidine 20 Mg Tab) 20 mg PO BID [facility] Last Admin: 05/21/21 20:09 Dose: 20 mg Documented by: Admin: 05/21/21 08:18 Dose: 20 mg Documented by: MARIA T Fluticasone Propionate (Fluticasone Propionate Nasal Raymond 16 Gm Bottle) 0 gm NASBOTH DAILY [facility] Last Admin: 05/21/21 08:44 Dose: 1 dose Documented by: DORIAN Gabapentin (Gabapentin 600 Mg Tab) 600 mg PO QID [facility] Last Admin: 05/21/21 20:10 Dose: 600 mg Documented by: Admin: 05/21/21 16:51 Dose: 600 mg Documented by: MARIA T Admin: 05/21/21 12:34 Dose: 600 mg Documented by: Admin: 05/21/21 08:19 Dose: 600 mg Documented by: MARIA T Hydrocortisone (Hydrocortisone 1% Crm 30 Gm Tube) 0 gm TOP TID PRN PRN Reason: Hemorrhoids Last Admin: 05/21/21 14:03 Dose: 30 gm Documented by: MARIA T Remdesivir 100 mg/ Sodium (Chloride) 250 mls @ 250 mls/hr IV Q24H [facility] Stop: 05/24/21 22:59 Last Admin: 05/21/21 21:01 Dose: 250 mls/hr Documented by: JACE Loperamide HCl (Loperamide 2 Mg Cap) 2 mg PO Q4H PRN PRN Reason: Diarrhea Last Admin: 05/21/21 18:25 Dose: 2 mg Documented by: MARIA T Magnesium Hydroxide (Magnesium Hydroxide 400 Mg/5 Ml Susp 30 Ml Cup) 30 ml PO Q12H PRN PRN Reason: Constipation Mexiletine HCl (Mexiletine 150 Mg Cap) 150 mg PO TID [facility] Last Admin: 05/21/21 20:11 Dose: 150 mg Documented by: Admin: 05/21/21 14:04 Dose: 150 mg Documented by: MARIA T Admin: 05/21/21 08:31 Dose: 150 mg Documented by: MARIA T Miscellaneous Information (Remove Patch) 0 ea TRDERM DAILY [facility] Nicotine (Nicotine 14 Mg/24 Hr Patch) 14 mg TRDERM DAILY [facility] Ondansetron HCl (Ondansetron 4 Mg/2 Ml Sdv) 4 mg IV Q6H PRN PRN Reason: Nausea/Vomiting Last Admin: 05/21/21 10:00 Dose: 4 mg Documented by: THOMAS Ropinirole HCl (Ropinirole 1 Mg Tab) 1 mg PO 1700,2100 [facility] Last Admin: 05/21/21 20:09 Dose: 1 mg Documented by: Admin: 05/21/21 16:51 Dose: 1 mg Documented by: MARIA T Sodium Chloride (Sodium Chloride 0.9% 10 Ml Syringe) 10 ml FLUSH ASDIRECTED PRN PRN Reason: Keep Vein Open Last Admin: 05/20/21 21:50 Dose: 10 ml Documented by: FLACO Tramadol HCl (Tramadol 50 Mg Tab) 50 mg PO Q6H PRN PRN Reason: Pain Last Admin: 05/21/21 20:59 Dose: 50 mg Documented by: JCAE Trazodone HCl (Trazodone 50 Mg Tab) 150 mg PO BEDTIME PRN PRN Reason: Insomnia Last Admin: 05/21/21 20:58 Dose: 150 mg Documented by: JACE Reyesel (Anais Garcia Medicated Pads 40/Jar) 1 pad TOP ASDIRECTED PRN PRN Reason: Hemorrhoids Zinc Sulfate (Zinc Sulfate 220 Mg Cap) 220 mg PO DAILY [facility] Last Admin: 05/21/21 08:19 Dose: 220 mg Documented by: MARIA T Labs: Laboratory Tests 05/20/21 05/20/21 05/20/21 Range/Units 21:48 21:48 21:48 WBC 7.03 (3.98-10.04) K/mm3 RBC 4.54 (3.98-5.22) M/mm3 Hgb 14.0 (11.2-15.7) gm/dl Hct 43.1 (34.1-44.9) % MCV 94.9 H (79.4-94.8) fl MCH 30.8 (25.6-32.2) pg MCHC 32.5 (32.2-35.5) g/dl RDW Std Deviation 53.1 H (36.4-46.3) fL Plt Count 128 L (182-369) K/mm3 MPV 11.0 (9.4-12.3) fl Neut % (Auto) 89.7 H (34.0-71.1) % Lymph % (Auto) 8.0 L (19.3-51.7) % [place] % (Auto) 2.0 L (4.7-12.5) % Eos % (Auto) 0 L (0.7-5.8) Baso % (Auto) 0.0 L (0.1-1.2) % Neut # (Auto) 6.31 H (1.56-6.13) K/mm3 Lymph # (Auto) 0.56 L (1.18-3.74) K/mm3 [place] # (Auto) 0.14 L (0.24-0.36) K/mm3 Eos # (Auto) 0.00 L (0.04-0.36) K/mm3 Baso # (Auto) 0.00 L (0.01-0.08) K/mm3 D-Dimer, Quantitative 0.32 (0.19-0.50) mg/L Sodium 138 (136-145) mEq/L Potassium 3.1 L (3.5-5.1) mEq/L Chloride 100 (98-107) mEq/L Carbon Dioxide 28 (21-32) mEq/L Anion Gap 13.1 (5-15) BUN 20 H (7-18) mg/dL Creatinine 1.2 H (0.55-1.02) mg/dL Est Cr Clr Drug Dosing 53.09 mL/min Estimated GFR (MDRD) 48 (>60) mL/min BUN/Creatinine Ratio 16.7 (14-18) Glucose 112 H (70-99) mg/dL Calcium 8.3 L (8.5-10.1) mg/dL Total Bilirubin 0.3 (0.2-1.0) mg/dL AST 63 H (15-37) U/L ALT 48 (14-59) U/L Alkaline Phosphatase 103 (46-116) U/L Troponin I < 0.017 (0.00-0.056) ng/mL C-Reactive Protein 27.6 H* (<1.0) mg/dL NT-Pro-B Natriuret Pep (0-125) pg/mL Total Protein 6.6 (6.4-8.2) g/dl Albumin 2.8 L (3.4-5.0) g/dl Globulin 3.8 gm/dL Albumin/Globulin Ratio 0.7 L (1-2) 05/20/21 Range/Units 21:48 WBC (3.98-10.04) K/mm3 RBC (3.98-5.22) M/mm3 Hgb (11.2-15.7) gm/dl Hct (34.1-44.9) % MCV (79.4-94.8) fl MCH (25.6-32.2) pg MCHC (32.2-35.5) g/dl RDW Std Deviation (36.4-46.3) fL Plt Count (182-369) K/mm3 MPV (9.4-12.3) fl Neut % (Auto) (34.0-71.1) % Lymph % (Auto) (19.3-51.7) % [place] % (Auto) (4.7-12.5) % Eos % (Auto) (0.7-5.8) Baso % (Auto) (0.1-1.2) % Neut # (Auto) (1.56-6.13) K/mm3 Lymph # (Auto) (1.18-3.74) K/mm3 [place] # (Auto) (0.24-0.36) K/mm3 Eos # (Auto) (0.04-0.36) K/mm3 Baso # (Auto) (0.01-0.08) K/mm3 D-Dimer, Quantitative (0.19-0.50) mg/L Sodium (136-145) mEq/L Potassium (3.5-5.1) mEq/L Chloride (98-107) mEq/L Carbon Dioxide (21-32) mEq/L Anion Gap (5-15) BUN (7-18) mg/dL Creatinine (0.55-1.02) mg/dL Est Cr Clr Drug Dosing mL/min Estimated GFR (MDRD) (>60) mL/min BUN/Creatinine Ratio (14-18) Glucose (70-99) mg/dL Calcium (8.5-10.1) mg/dL Total Bilirubin (0.2-1.0) mg/dL AST (15-37) U/L ALT (14-59) U/L Alkaline Phosphatase (46-116) U/L Troponin I (0.00-0.056) ng/mL C-Reactive Protein (<1.0) mg/dL NT-Pro-B Natriuret Pep 147 H (0-125) pg/mL Total Protein (6.4-8.2) g/dl Albumin (3.4-5.0) g/dl Globulin gm/dL Albumin/Globulin Ratio (1-2) Meds: Medications Generic Name Dose Route Start Last Admin Trade Name Freq PRN Reason Stop Dose Admin Acetaminophen 650 mg 05/21/21 07:25 Acetaminophen 325 Mg Tab PO Q4H PRN Fever Greater Than 101 Albuterol 2.5 mg 05/21/21 07:27 Albuterol 0.083% 2.5 Mg/3 Ml Neb Soln NEB Q2H PRN Shortness Of Breath/wheezing Albuterol 0 gm 05/21/21 07:27 05/21/21 08:42 Albuterol 6.7 Gm Inhaler INH 2 each Q2H PRN Administration SOB/Wheezing Albuterol/Ipratropium 3 ml 05/21/21 07:27 Albuterol/Ipratropium 3.0-0.5 Mg/3 Ml Neb Soln NEB QIDRT PRN Shortness Of Breath/wheezing Alprazolam 1 mg 05/21/21 07:24 Alprazolam 1 Mg Tab PO Q8H PRN Anxiety Baclofen 20 mg 05/21/21 09:00 05/21/21 20:08 Baclofen 10 Mg Tab PO 20 mg QID GIA Administration Dexamethasone 6 mg 05/21/21 09:00 05/21/21 08:19 Dexamethasone 4 Mg Tab PO 05/29/21 09:01 6 mg DAILY GIA Administration Docusate Sodium 100 mg 05/21/21 09:00 05/21/21 20:07 Docusate Sodium 100 Mg Cap PO Not Given BID GIA Enoxaparin Sodium 40 mg 05/21/21 09:00 05/21/21 08:18 Enoxaparin 40 Mg/0.4 Ml Syringe SUBCUT 40 mg DAILY [facility]IA Administration Famotidine 20 mg 05/21/21 09:00 05/21/21 20:09 Famotidine 20 Mg Tab PO 20 mg BID GIA Administration Fluticasone Propionate 0 gm 05/21/21 09:00 05/21/21 08:44 Fluticasone Propionate Nasal Raymond 16 Gm Bottle NASBOTH 1 dose DAILY GIA Administration Gabapentin 600 mg 05/21/21 09:00 05/21/21 20:10 Gabapentin 600 Mg Tab PO 600 mg QID GIA Administration Hydrocortisone 0 gm 05/21/21 12:41 05/21/21 14:03 Hydrocortisone 1% Crm 30 Gm Tube TOP 30 gm TID PRN Administration Hemorrhoids Remdesivir 100 mg/ Sodium 250 mls @ 250 mls/hr 05/21/21 22:00 05/21/21 21:01 Chloride IV 05/24/21 22:59 250 mls/hr Q24H GIA Administration Loperamide HCl 2 mg 05/21/21 17:29 05/21/21 18:25 Loperamide 2 Mg Cap PO 2 mg Q4H PRN Administration Diarrhea Magnesium Hydroxide 30 ml 05/21/21 07:27 Magnesium Hydroxide 400 Mg/5 Ml Susp 30 Ml Cup PO Q12H PRN Constipation Mexiletine HCl 150 mg 05/21/21 09:00 05/21/21 20:11 Mexiletine 150 Mg Cap PO 150 mg TID GIA Administration Miscellaneous Information 0 ea 05/23/21 09:00 Remove Patch TRDERM DAILY [facility] Nicotine 14 mg 05/22/21 09:00 Nicotine 14 Mg/24 Hr Patch TRDERM DAILY [facility] Ondansetron HCl 4 mg 05/21/21 07:27 05/21/21 10:00 Ondansetron 4 Mg/2 Ml Sdv IV 4 mg Q6H PRN Administration Nausea/Vomiting Ropinirole HCl 1 mg 05/21/21 17:00 05/21/21 20:09 Ropinirole 1 Mg Tab PO 1 mg 1700,2100 GIA Administration Sodium Chloride 10 ml 05/20/21 21:13 05/20/21 21:50 Sodium Chloride 0.9% 10 Ml Syringe FLUSH 10 ml ASDIRECTED PRN Administration Keep Vein Open Tramadol HCl 50 mg 05/21/21 20:23 05/21/21 20:59 Tramadol 50 Mg Tab PO 50 mg Q6H PRN Administration Pain Trazodone HCl 150 mg 05/21/21 20:30 05/21/21 20:58 Trazodone 50 Mg Tab PO 150 mg BEDTIME PRN Administration Insomnia Witch Radha 1 pad 05/21/21 12:41 Witch Radha Medicated Pads 40/Jar TOP ASDIRECTED PRN Hemorrhoids Zinc Sulfate 220 mg 05/21/21 09:00 05/21/21 08:19 Zinc Sulfate 220 Mg Cap PO 220 mg DAILY GIA Administration Discontinued Medications Generic Name Dose Route Start Last Admin Trade Name Freq PRN Reason Stop Dose Admin Acetaminophen 650 mg 05/20/21 22:59 05/20/21 23:42 Acetaminophen 325 Mg Tab PO 05/20/21 23:00 650 mg NOW ONE Administration Baclofen 20 mg 05/20/21 22:58 05/20/21 23:44 Baclofen 10 Mg Tab PO 05/20/21 22:59 20 mg ONETIME ONE Administration Dexamethasone 6 mg 05/20/21 21:50 05/20/21 22:01 Dexamethasone 6 Mg Tablet PO 05/20/21 21:51 6 mg ONETIME ONE Administration Gabapentin 600 mg 05/20/21 22:59 05/20/21 23:41 Gabapentin 300 Mg Cap PO 05/20/21 23:00 600 mg ONETIME ONE Administration Remdesivir 200 mg/ Sodium 250 mls @ 250 mls/hr 05/20/21 22:40 05/20/21 23:40 Chloride IV 05/20/21 22:41 250 mls/hr ONETIME ONE Administration Remdesivir 100 mg/ Sodium 100 mls @ 100 mls/hr 05/21/21 22:00 Chloride IV 05/24/21 22:59 Q24H GIA Sodium Phosphate 30 mmole/ 260 mls @ 86.667 mls/hr 05/21/21 10:00 05/21/21 11:22 Sodium Chloride IV 05/21/21 12:59 86.667 mls/hr ONETIME ONE Administration Mexiletine HCl 150 mg 05/20/21 22:59 05/20/21 23:45 Mexiletine 150 Mg Cap PO 05/20/21 23:00 150 mg ONETIME ONE Administration Potassium Chloride 40 meq 05/20/21 22:40 05/20/21 23:40 Potassium Chloride 20 Meq Tab.Er PO 05/20/21 22:41 40 meq ONETIME ONE Administration Ropinirole HCl 1 mg 05/20/21 22:58 05/20/21 23:41 Ropinirole 1 Mg Tab PO 05/20/21 22:59 1 mg ONETIME ONE Administration - Re-Assessments/Exams Free Text/Narrative Re-Assessment/Exam: Patient is a 50-year-old female presenting to the emergency department for evaluation of worsening of Covid symptoms. She is approximate 3 days into her illness. Oxygen saturation on arrival was 82% on room air. She is currently saturating 92 to 93% on 3 L by nasal cannula. On exam, she has rhonchi to bilateral bases posteriorly as well as scattered expiratory wheezing throughout all lung johnson. Even her oxygen demands and as early as she and her course of illness, hospital admission would be appropriate. Patient is hesitant to do this. I emphasized to her that unfortunately she would likely get worse before she gets better beings that she is only 3 days into her illness. Recommend that she think about being admitted. In the meantime, have ordered blood work, chest x-ray, EKG. 05/20/21 22:00 Chest x-ray reviewed shows moderately severe bilateral Covid pneumonia. Hematology is pending. EKG shows sinus tachycardia at 107. Discussed hospital admission with the patient again and she has agreed to be admitted. Spoke with hospitalist on-call, Dr. Jones and he has accepted her for admission. Requested that we start remdesivir and dexamethasone and write bridge orders for admission. Once lab results are available I will write for this and she will be moved over to an inpatient bed. 05/20/21 2300 Hematology significant for potassium slightly low at 3.1, BUN 20, creatinine 1.2, CRP 27.6, proBNP 147. I have ordered 40 mEq of oral potassium to be given. We will continue her evening home medications. Remdesivir and dexamethasone has been ordered. She will be moved over to an inpatient bed once the room is ready. Departure - Departure Time of Disposition: 22:10 Disposition: Admitted As Inpatient 67 Condition: Good Clinical Impression: Pneumonia due to COVID-19 virus, Hypokalemia - Discharge Information - My Orders Last 24 Hours: My Active Orders 05/20/21 21:13 Sodium Chloride 0.9% [Saline Flush] 10 ml FLUSH ASDIRECTED PRN Peripheral IV Insertion Adult [OM.PC] Stat 05/20/21 21:14 Peripheral IV Care [RC] . DIRECTED - Assessment/Plan Last 24 Hours: My Active Orders 05/20/21 21:13 Sodium Chloride 0.9% [Saline Flush] 10 ml FLUSH ASDIRECTED PRN Peripheral IV Insertion Adult [OM.PC] Stat 05/20/21 21:14 Peripheral IV Care [RC] . DIRECTED
[2021-05-20] MEDS ORDERED: Potassium Chloride 20 MEQ Tab.ER PO ONE (22:40)
[2021-05-20] MEDS ORDERED: REMDESIVIR 200 MG in Sodium Chloride 0.9% 250 ML IV ONE (22:40)
[2021-05-20] MEDS ORDERED: Baclofen 10 MG Tab PO ONE (22:58)
[2021-05-20] MEDS ORDERED: rOPINIRole 1 MG Tab PO ONE (22:58)
[2021-05-20] MEDS ORDERED: Mexiletine 150 MG Cap PO ONE (22:59)
[2021-05-20] MEDS ORDERED: Acetaminophen 325 MG Tab PO ONE (22:59)
[2021-05-20] MEDS ORDERED: Gabapentin 300 MG Cap PO ONE (22:59)
--- NOTE | 2021-05-21 06:59 | CR ---
Chest: Portable view of the chest was obtained. Comparison: No prior chest imaging is available. Consolidation is noted within the left upper lung. Slight areas of increased perihilar density are also noted within the right lung. Heart size and mediastinum are normal. Bony structures show scoliosis within the spine. Surgical clips are seen from prior cholecystectomy. Prior lumbar spine surgery is noted. Impression: 1. Increased density within both sides of the chest, worse on the left side. These findings are most likely due to prominent COVID - 19 pneumonia. Diagnostic code #3
[2021-05-21] MEDS ORDERED: ALPRAZolam 1 MG Tab PO PRN (07:24)
[2021-05-21] MEDS ORDERED: Albuterol 0.083% 2.5 MG/3 ML Neb Soln NEB PRN (07:27)
[2021-05-21] MEDS ORDERED: Albuterol/Ipratropium 3.0-0.5 MG/3 ML Neb Soln NEB PRN (07:27)
[2021-05-21] MEDS ORDERED: Magnesium Hydroxide 400 MG/5 ML Susp 30 ML Cup PO PRN (07:27)
--- NOTE | 2021-05-21 07:47 | PCM.HP.2 ---
H&P History of Present Illness - General Date of Service: 05/21/21 Admit Problem/Dx: Admission Diagnosis/Problem Admission Diagnosis/Problem Hypoxia Source of Information: Patient, Old Records, Provider, RN, RN Notes Reviewed History Limitations: Reports: No Limitations - History of Present Illness Initial Comments - Free Text/Narative: This is a 50-year-old female who presented to ED on the night team hours of 05/20/2021 with worsening Covid symptoms. She reports symptoms began around 05/17/2021 and she tested positive for Covid on 05/19/2021. She received a monoclonal antibody infusion at the clinic on 05/20/2021 and unfortunately her symptoms have worsened. She reports fever, chills, cough, sore throat, body aches, headache, nausea, loss of taste and smell, and diarrhea. She was instructed to monitor her oxygen saturations at home and she was noted with saturations in the 70s to 80s. Her significant other reports she is loopy with saturations at low. She was utilizing Tylenol and ibuprofen. She reports a history of sleep apnea but states she was told not to wear her CPAP due to the recall. Reportedly has a history of COPD although she states pulmonary function testing prove this is an accurate. She is a 91-kagi-fdoa smoker who states she quit smoking on Wednesday. She was not vaccinated for COVID-19. In the ED twelve-lead EKG is obtained showing a sinus tachycardia at 107 bpm. Temp was 100.8. Pulse was 114. Respirations were 20. Blood pressure 116/72. Pulse ox was 91%. Labs are obtained showing a WBC of 7.03. Hemoglobin 14.0. Platelet 128,000. Neutrophils are elevated at 89.7%. D-dimer was 0.32. Sodium was 138. Potassium was low at 3.1. Chloride was 100. Carbon dioxide 28. Anion gap is 13.1. BUN is 20. Creatinine 1.2. GFR is 48. Glucose is 112. Calcium 8.3. Bilirubin 0.3. AST is 63, ALT 48, alkaline phosphatase 103. Troponin is less than 0.017. Protein is 6.6. Albumin is 2.8. proBNP is 147. X-rays obtained showing increased density within both sides of the chest worse on the left side. It is felt these findings are most likely due to prominent COVID-19 pneumonia. She is given potassium supplementation, 6 mg dexamethasone, remdesivir, and her home medications. She is requiring 3 L oxygen. She carries a history of lung nodules, nocturnal desaturation, GERD, IBS, overactive bladder, endometriosis chronic back pain, fibromyalgia, RA, RLS, L DDD, anxiety, PTSD, chronic pain syndrome. She has had a back fusion at L3-S1. She is a full code. Her primary care provider is Dr. Kothari. She is subsequently admitted to the ICU as a MedSurg overflow on telemetry for treatment of her COVID-19 pneumonia with hypoxia. Chest Pain Score (Numeric/FACES): 4 - Related Data Allergies/Adverse Reactions: Allergies Allergy/AdvReac Type Severity Reaction Status Date / Time iodine Allergy Severe Airway Verified 05/21/21 07:54 Tightness azithromycin [From Zithromax] Allergy Unknown Cannot Verified 05/21/21 07:54 Remember bee pollen Allergy Unknown Cannot Verified 05/21/21 07:54 Remember glucosamine Allergy Unknown Cannot Verified 05/21/21 07:54 Remember ketorolac [From Toradol] Allergy Unknown Cannot Verified 05/21/21 07:54 Remember latex Allergy Unknown Cannot Verified 05/21/21 07:54 Remember metrizamide Allergy Unknown Cannot Verified 05/21/21 07:54 Remember shellfish derived Allergy Unknown Cannot Verified 05/21/21 07:54 Remember sodium phosphate Allergy Unknown Cannot Verified 05/21/21 07:54 Remember Sulfa (Sulfonamide Allergy Unknown Cannot Verified 05/21/21 07:54 Antibiotics) Remember sumatriptan [From Imitrex] Allergy Unknown Cannot Verified 05/21/21 07:54 Remember zolpidem [From Ambien] Allergy Unknown Cannot Verified 05/21/21 07:54 Remember Home Medications: Home Meds ALPRAZolam [Xanax] 1 mg PO Q8H PRN 10/08/20 [History] Baclofen 20 mg PO QID 10/08/20 [History] Fluticasone Propionate [Flonase] 1 dose NASBOTH DAILY 10/08/20 [History] Hydrocortisone [Anusol-HC] 1 dose RECTAL TID PRN 10/08/20 [History] Maxalt Event Staff Member 10 mg PO ASDIRECTED PRN 10/08/20 [History] Mexiletine [Mexitil] 150 mg PO TID 10/08/20 [History] Promethazine [Phenergan] 25 mg PO Q4H PRN 10/08/20 [History] rOPINIRole [Requip] 1 mg PO 1700,2100 10/08/20 [History] traZODone 150 mg PO BEDTIME PRN 10/08/20 [History] Docusate Sodium [Colace] 100 mg PO BID #60 capsule 10/09/20 [Rx] Gabapentin [Neurontin] 600 mg PO QID 10/09/20 [History] Past Medical History HEENT History: Reports: Allergic Rhinitis, Other (See Below) Other HEENT History: keratitis bullosa, post nasal drip Cardiovascular History: Reports: None Respiratory History: Reports: COPD, Other (See Below) Other Respiratory History: nodules in lungs, uses bipap, nocturnal desaturation Gastrointestinal History: Reports: GERD, Irritable Bowel Syndrome Other Gastrointestinal History: acid reflux, anorectal spasm Genitourinary History: Reports: Other (See Below) Other Genitourinary History: overactive bladder PLUM PACKER History: Reports: Endometriosis, Other (See Below) Other OB/BYN History: pelvic floor dysfunction Musculoskeletal History: Reports: Back Pain, Chronic, Fibromyalgia, RA, Other (See Below) Other Musculoskeletal History: restless leg syndrome, myotonic dystrophy, bone spur, ganglion cyst Neurological History: Reports: Migraines, Other (See Below) Other Neuro History: restless leg syndrome, lumbar stenosis with neurogenic claudication, lumbar degenerative disc disease Psychiatric History: Reports: Anxiety, PTSD, Other (See Below) Other Psychiatric History: chronic pain syndrome Endocrine/Metabolic History: Reports: None Hematologic History: Reports: None Immunologic History: Reports: None Oncologic (Cancer) History: Reports: Malignant Melanoma Dermatologic History: Reports: None - Infectious Disease History Infectious Disease History: Reports: Novel Coronavirus - Past Surgical History HEENT Surgical History: Reports: None Cardiovascular Surgical History: Reports: None Respiratory Surgical History: Reports: None GI Surgical History: Reports: Appendectomy, Cholecystectomy, Colonoscopy, Other (See Below) Other GI Surgeries/Procedures: rectal surgery Female Surgical History: Reports: Hysterectomy Endocrine Surgical History: Reports: None Neurological Surgical History: Reports: Lumbar Spine, Thoracic Spine Musculoskeletal Surgical History: Reports: Other (See Below) Other Musculoskeletal Surgeries/Procedures:: back- fusion L3-S1, right foot surgery, hand surgery Oncologic Surgical History: Reports: None Dermatological Surgical History: Reports: Other (See Below) Social & Family History - Family History Family Medical History: No Pertinent Family History HEENT: Reports: Other (See Below) Other HEENT Family History: unknown Cardiac: Reports: [place] Respiratory: Reports: Other (See Below) Other Respiratory Family Hisory: unknown GI: Reports: Hiatal Hernia, Other (See Below) Other GI Family History: "colon problems" : Reports: Other (See Below) Other Family History: spastic bladder OBGYN: Reports: Endometriosis, Recurrent Spontaneous Musculoskeletal: Reports: Other (See Below) Other Musculoskeletal Family History: myotonic dystrophy Neurological: Reports: Dementia Psychiatric: Reports: Depression, Suicide Attempt Endocrine/Metabolic: Reports: Other (See Below) Other Endocrine/Metabolic Family History: Diabetes, unknown type Immunologic: Reports: Other (See Below) Other Immunologic Family History: unknown Dermatologic: Reports: Other (See Below) Other Dermatologic Family History: unknown Oncologic: Reports: Other (See Below) Other Oncologic Family History: mother had cancer, but patient is unsure what kind of cancer. - Tobacco Use Tobacco Use Status *Q: Current Every Day Tobacco User Years of Tobacco use: 30 Packs/Tins Daily: 1.5 - Caffeine Use Caffeine Use: Reports: Soda - Recreational Drug Use Recreational Drug Use: No - Living Situation & Occupation Living situation: Reports: Occupation: Unemployed H&P Review of Systems - Review of Systems: Review Of Systems: See Below General: Reports: Chills, Malaise, Weakness, Fatigue, Decreased Appetite. Denies: Fever, Night Sweats HEENT: Reports: Sore Throat. Denies: Headaches Pulmonary: Reports: Shortness of Breath, Pleuritic Chest Pain, Cough, Sputum Cardiovascular: Reports: Dyspnea on Exertion. Denies: Chest Pain, Palpitations, Edema Gastrointestinal: Reports: No Symptoms. Denies: Abdominal Pain, Constipation, Diarrhea, Nausea, Vomiting Genitourinary: Reports: No Symptoms. Denies: Pain Musculoskeletal: Reports: Back Pain (Chronic), Muscle Pain (Generalized myalgias) Skin: Reports: No Symptoms. Denies: Cyanosis Psychiatric: Reports: No Symptoms. Denies: Confusion Neurological: Reports: Weakness. Denies: Confusion, Dizziness, Headache, Numbness, Pre-Existing Deficit, Seizure, Syncope, Tingling, Difficulty Walking, Gait Disturbance Hematologic/Lymphatic: Reports: No Symptoms Immunologic: Reports: No Symptoms Exam - Exam Exam: See Below - Vital Signs Vital Signs: Last Vital Signs Temp 97.9 F 05/21/21 03:48 Pulse 95 05/21/21 03:48 Resp 25 H 05/21/21 03:48 BP 127/75 05/21/21 03:48 Pulse Ox 90 L 05/21/21 06:22 Weight: 170 lb 3.2 oz - Exam Quality Assessment: Supplemental Oxygen (3 L via nasal cannula), DVT Prophylaxis. No: Urinary Catheter General: Alert, Oriented, Cooperative, Mild Distress (Looks acutely ill) HEENT: Conjunctiva Clear, EACs Clear, Hearing Intact, Nares Patent, Posterior Pharynx Clear, Pupils Equal. No: Mucosa Moist & [place] (Dry) Neck: Supple, Trachea Midline Lungs: Decreased Breath Sounds, Crackles. No: Normal Respiratory Effort (Tachypneic), Wheezing Cardiovascular: Regular Rhythm, Tachycardia GI/Abdominal Exam: Normal Bowel Sounds, Soft, Non-Tender, No Distention (Female) Exam: Deferred Rectal (Female) Exam: Deferred Back Exam: Normal Inspection, Decreased Range of Motion Extremities: Normal Inspection, Normal Range of Motion, Non-Tender, No Pedal Edema Skin: Warm, Dry, Intact Neurological: Cranial Nerves Intact (Grossly) Neuro Extensive - Mental Status: Alert, Oriented x3 - Patient Data Lab Results Last 24 hrs: Laboratory Results - last 24 hr 05/20/21 05/20/21 05/20/21 Range/Units 21:48 21:48 21:48 WBC 7.03 (3.98-10.04) K/mm3 RBC 4.54 (3.98-5.22) M/mm3 Hgb 14.0 (11.2-15.7) gm/dl Hct 43.1 (34.1-44.9) % MCV 94.9 H (79.4-94.8) fl MCH 30.8 (25.6-32.2) pg MCHC 32.5 (32.2-35.5) g/dl RDW Std Deviation 53.1 H (36.4-46.3) fL Plt Count 128 L (182-369) K/mm3 MPV 11.0 (9.4-12.3) fl Neut % (Auto) 89.7 H (34.0-71.1) % Lymph % (Auto) 8.0 L (19.3-51.7) % [place] % (Auto) 2.0 L (4.7-12.5) % Eos % (Auto) 0 L (0.7-5.8) Baso % (Auto) 0.0 L (0.1-1.2) % Neut # (Auto) 6.31 H (1.56-6.13) K/mm3 Lymph # (Auto) 0.56 L (1.18-3.74) K/mm3 [place] # (Auto) 0.14 L (0.24-0.36) K/mm3 Eos # (Auto) 0.00 L (0.04-0.36) K/mm3 Baso # (Auto) 0.00 L (0.01-0.08) K/mm3 Manual Slide Review D-Dimer, Quantitative 0.32 (0.19-0.50) mg/L Sodium 138 (136-145) mEq/L Potassium 3.1 L (3.5-5.1) mEq/L Chloride 100 (98-107) mEq/L Carbon Dioxide 28 (21-32) mEq/L Anion Gap 13.1 (5-15) BUN 20 H (7-18) mg/dL Creatinine 1.2 H (0.55-1.02) mg/dL Est Cr Clr Drug Dosing 53.09 mL/min Estimated GFR (MDRD) 48 (>60) mL/min BUN/Creatinine Ratio 16.7 (14-18) Glucose 112 H (70-99) mg/dL Calcium 8.3 L (8.5-10.1) mg/dL Total Bilirubin 0.3 (0.2-1.0) mg/dL AST 63 H (15-37) U/L ALT 48 (14-59) U/L Alkaline Phosphatase 103 (46-116) U/L Troponin I < 0.017 (0.00-0.056) ng/mL C-Reactive Protein 27.6 H* (<1.0) mg/dL NT-Pro-B Natriuret Pep (0-125) pg/mL Total Protein 6.6 (6.4-8.2) g/dl Albumin 2.8 L (3.4-5.0) g/dl Globulin 3.8 gm/dL Albumin/Globulin Ratio 0.7 L (1-2) 05/20/21 05/21/21 Range/Units 21:48 07:04 WBC 9.36 (3.98-10.04) K/mm3 RBC 4.28 (3.98-5.22) M/mm3 Hgb 13.2 (11.2-15.7) gm/dl Hct 40.9 (34.1-44.9) % MCV 95.6 H (79.4-94.8) fl MCH 30.8 (25.6-32.2) pg MCHC 32.3 (32.2-35.5) g/dl RDW Std Deviation 53.3 H (36.4-46.3) fL Plt Count 128 L (182-369) K/mm3 MPV 11.2 (9.4-12.3) fl Neut % (Auto) 91.8 H (34.0-71.1) % Lymph % (Auto) 6.2 L (19.3-51.7) % [place] % (Auto) 1.7 L (4.7-12.5) % Eos % (Auto) 0 L (0.7-5.8) Baso % (Auto) 0.1 (0.1-1.2) % Neut # (Auto) 8.59 H (1.56-6.13) K/mm3 Lymph # (Auto) 0.58 L (1.18-3.74) K/mm3 [place] # (Auto) 0.16 L (0.24-0.36) K/mm3 Eos # (Auto) 0.00 L (0.04-0.36) K/mm3 Baso # (Auto) 0.01 (0.01-0.08) K/mm3 Manual Slide Review Normal smear D-Dimer, Quantitative (0.19-0.50) mg/L Sodium (136-145) mEq/L Potassium (3.5-5.1) mEq/L Chloride (98-107) mEq/L Carbon Dioxide (21-32) mEq/L Anion Gap (5-15) BUN (7-18) mg/dL Creatinine (0.55-1.02) mg/dL Est Cr Clr Drug Dosing mL/min Estimated GFR (MDRD) (>60) mL/min BUN/Creatinine Ratio (14-18) Glucose (70-99) mg/dL Calcium (8.5-10.1) mg/dL Total Bilirubin (0.2-1.0) mg/dL AST (15-37) U/L ALT (14-59) U/L Alkaline Phosphatase (46-116) U/L Troponin I (0.00-0.056) ng/mL C-Reactive Protein (<1.0) mg/dL NT-Pro-B Natriuret Pep 147 H (0-125) pg/mL Total Protein (6.4-8.2) g/dl Albumin (3.4-5.0) g/dl Globulin gm/dL Albumin/Globulin Ratio (1-2) Result Diagrams: 05/21/21 07:04 05/21/21 07:04 Sepsis Event Note - Evaluation Sepsis Screening Result: Sepsis Risk - Focused Exam Vital Signs: Vital Signs Temp Temp Pulse Pulse Resp BP BP 05/21/21 06:22 05/21/21 03:48 97.9 F 95 25 H 127/75 05/21/21 03:00 97 21 H 109/66 05/21/21 02:30 102 H 23 H 107/69 05/21/21 02:00 94 20 105/65 05/21/21 01:30 102 H 20 92/55 L 05/21/21 01:00 104 H 23 H 105/71 05/21/21 00:45 103 H 23 H 109/63 05/21/21 00:30 107 H 23 H 105/68 05/21/21 00:15 97.8 F 104 H 23 H 109/63 05/21/21 00:12 97.8 F 05/21/21 00:05 108 H 24 H 113/63 05/20/21 23:42 102.6 F H 05/20/21 21:12 05/20/21 20:56 100.8 F H 114 H 20 116/72 Pulse Ox Pulse Ox 05/21/21 06:22 90 L 05/21/21 03:48 90 L 05/21/21 03:00 91 L 05/21/21 02:30 90 L 05/21/21 02:00 90 L 05/21/21 01:30 93 L 05/21/21 01:00 91 L 05/21/21 00:45 92 L 05/21/21 00:30 90 L 05/21/21 00:15 90 L 05/21/21 00:12 05/21/21 00:05 90 L 05/20/21 23:42 05/20/21 21:12 91 L 05/20/21 20:56 82 L - Problem List (1) Hypokalemia SNOMED Code(s): 52497933 ICD Code: E87.6 - HYPOKALEMIA Status: Resolved Priority: High Current Visit: Yes (2) Pneumonia due to COVID-19 virus SNOMED Code(s): 305127256261104950 ICD Code: U07.1 - COVID-19; J12.82 - PNEUMONIA DUE TO CORONAVIRUS DISEASE 2019 Status: Acute Priority: High Current Visit: Yes (3) Thrombocytopenia SNOMED Code(s): 758274481 ICD Code: D69.6 - THROMBOCYTOPENIA, UNSPECIFIED Status: Acute Priority: Medium Current Visit: Yes (4) ANDREAS (acute kidney injury) SNOMED Code(s): 16536425, 56446934 ICD Code: N17.9 - ACUTE KIDNEY FAILURE, UNSPECIFIED Status: Resolved Priority: High Current Visit: Yes (5) Acute respiratory failure with hypoxia SNOMED Code(s): 78932376, 968219093 ICD Code: J96.01 - ACUTE RESPIRATORY FAILURE WITH HYPOXIA Status: Acute Priority: High Current Visit: Yes (6) History of multiple pulmonary nodules SNOMED Code(s): 253970557 ICD Code: Z87.898 - PERSONAL HISTORY OF OTHER SPECIFIED CONDITIONS Status: Chronic Priority: Low Current Visit: No (7) Nocturnal oxygen desaturation SNOMED Code(s): 695706854 ICD Code: G47.34 - IDIO SLEEP RELATED NONOBSTRUCTIVE ALVEOLAR HYPOVENTILATION Status: Chronic Priority: Medium Current Visit: No (8) GERD (gastroesophageal reflux disease) SNOMED Code(s): 601928762 ICD Code: K21.9 - GASTRO-ESOPHAGEAL REFLUX DISEASE WITHOUT ESOPHAGITIS Status: Chronic Priority: Low Current Visit: No Qualifiers: Esophagitis presence: esophagitis presence not specified Qualified Code(s): K21.9 - Gastro-esophageal reflux disease without esophagitis (9) IBS (irritable bowel syndrome) SNOMED Code(s): 71930146 ICD Code: K58.9 - IRRITABLE BOWEL SYNDROME WITHOUT DIARRHEA Status: Chronic Priority: Low Current Visit: No Qualifiers: Irritable bowel syndrome type: unspecified Qualified Code(s): K58.9 - Irritable bowel syndrome without diarrhea (10) Endometriosis SNOMED Code(s): 581291512 ICD Code: N80.9 - ENDOMETRIOSIS, UNSPECIFIED Status: Chronic Priority: Low Current Visit: No (11) Chronic back pain SNOMED Code(s): 395740047 ICD Code: M54.9 - DORSALGIA, UNSPECIFIED; G89.29 - OTHER CHRONIC PAIN Status: Chronic Priority: Low Current Visit: No Qualifiers: Back pain location: low back pain Back pain laterality: midline Sciatica presence: without sciatica Qualified Code(s): M54.50 - Low back pain, unspecified; G89.29 - Other chronic pain (12) Fibromyalgia SNOMED Code(s): 743463317 ICD Code: M79.7 - FIBROMYALGIA Status: Chronic Priority: Low Current Visit: No (13) Rheumatoid arthritis SNOMED Code(s): 17598017 ICD Code: M06.9 - RHEUMATOID ARTHRITIS, UNSPECIFIED Status: Chronic Priority: Low Current Visit: No Qualifiers: Rheumatoid arthritis location: unspecified site Rheumatoid factor presence: unspecified presence Qualified Code(s): M06.9 - Rheumatoid arthritis, unspecified (14) RLS (restless legs syndrome) SNOMED Code(s): 70875773 ICD Code: G25.81 - RESTLESS LEGS SYNDROME Status: Chronic Priority: Low Current Visit: No (15) Lumbar degenerative disc disease SNOMED Code(s): 98172332 ICD Code: M51.36 - OTHER INTERVERTEBRAL DISC DEGENERATION, LUMBAR REGION Status: Chronic Priority: Low Current Visit: No (16) Anxiety SNOMED Code(s): 70875345 ICD Code: F41.9 - ANXIETY DISORDER, UNSPECIFIED Status: Chronic Priority: Medium Current Visit: Yes (17) PTSD (post-traumatic stress disorder) SNOMED Code(s): 51639914 ICD Code: F43.10 - POST-TRAUMATIC STRESS DISORDER, UNSPECIFIED Status: Chronic Priority: Low Current Visit: No (18) History of lumbar spinal fusion SNOMED Code(s): 96887034228738 ICD Code: Z98.1 - ARTHRODESIS STATUS Status: Chronic Priority: Low Current Visit: No (19) Smoker SNOMED Code(s): 42753209 ICD Code: F17.200 - NICOTINE DEPENDENCE, UNSPECIFIED, UNCOMPLICATED Status: Chronic Priority: Medium Current Visit: Yes (20) Chronic pain syndrome SNOMED Code(s): 860829002 ICD Code: G89.4 - CHRONIC PAIN SYNDROME Status: Chronic Priority: Medium Current Visit: Yes (21) Hypoalbuminemia SNOMED Code(s): 240776956 ICD Code: E88.09 - OTH DISORDERS OF PLASMA-PROTEIN METABOLISM, NEC Status: Acute Priority: Medium Current Visit: Yes (22) Hypophosphatemia SNOMED Code(s): 5630804 ICD Code: E83.39 - OTHER DISORDERS OF PHOSPHORUS METABOLISM Status: Acute Priority: Medium Current Visit: Yes (23) Elevated C-reactive protein (CRP) SNOMED Code(s): 647826895555914 ICD Code: R79.82 - ELEVATED C-REACTIVE PROTEIN (CRP) Status: Acute Priority: Medium Current Visit: Yes Problem List Initiated/Reviewed/Updated: Yes Orders Last 24hrs: Active Orders 24 hr Category Date Time Status Patient Status [ADT] Routine ADT 05/20/21 22:57 Active Height and Weight [RC] DAILY Care 05/21/21 07:27 Ordered Intake and Output [RC] DAILY Care 05/21/21 07:28 Ordered Nurse Communication: Isolation [RC] ASDIRECTED Care 05/21/21 07:25 Ordered Oxygen Therapy [RC] ASDIRECTED Care 05/21/21 06:25 Active Peripheral IV Care [RC] . DIRECTED Care 05/20/21 21:14 Active Positioning, Patient [RC] ASDIRECTED Care 05/21/21 07:25 Ordered Pulse Oximetry [RC] CONTINUOUS Care 05/21/21 07:28 Ordered RT Aerosol Therapy [RC] ASDIRECTED Care 05/21/21 07:28 Ordered RT Incentive Spirometry [RC] ASDIRECTED Care 05/21/21 07:25 Ordered Telemetry Monitoring [Cardiac Monitoring] [RC] . Care 05/21/21 00:23 Active DIRECTED Up ad Johanne [RC] ASDIRECTED Care 05/21/21 07:27 Ordered Vital Signs [RC] Q6H Care 05/21/21 07:27 Ordered Respiratory Care Assess and Treatment [CONS] Routine Cons 05/21/21 07:29 Ordered Regular Diet [DIET] Diet 05/21/21 Breakfast Active C-REACTIVE PROTEIN [CHEM] AM Lab 05/22/21 05:11 Ordered C-REACTIVE PROTEIN [CHEM] AM Lab 05/23/21 05:11 Ordered C-REACTIVE PROTEIN [CHEM] AM Lab 05/24/21 05:11 Ordered C-REACTIVE PROTEIN [CHEM] AM Lab 05/25/21 05:11 Ordered CBC WITH AUTO DIFF [HEME] AM Lab 05/22/21 05:11 Ordered CBC WITH AUTO DIFF [HEME] AM Lab 05/23/21 05:11 Ordered CBC WITH AUTO DIFF [HEME] AM Lab 05/24/21 05:11 Ordered CBC WITH AUTO DIFF [HEME] AM Lab 05/25/21 05:11 Ordered COMPREHENSIVE METABOLIC PN,CMP [CHEM] AM Lab 05/22/21 05:11 Ordered COMPREHENSIVE METABOLIC PN,CMP [CHEM] AM Lab 05/23/21 05:11 Ordered COMPREHENSIVE METABOLIC PN,CMP [CHEM] AM Lab 05/24/21 05:11 Ordered COMPREHENSIVE METABOLIC PN,CMP [CHEM] AM Lab 05/25/21 05:11 Ordered COMPREHENSIVE METABOLIC PN,CMP [CHEM] Routine Lab 05/21/21 07:04 Received CRP [C-REACTIVE PROTEIN] [CHEM] Routine Lab 05/21/21 07:04 Received MAGNESIUM [CHEM] AM Lab 05/22/21 05:11 Ordered MAGNESIUM [CHEM] AM Lab 05/23/21 05:11 Ordered MAGNESIUM [CHEM] AM Lab 05/24/21 05:11 Ordered MAGNESIUM [CHEM] AM Lab 05/25/21 05:11 Ordered MAGNESIUM [CHEM] Routine Lab 05/21/21 07:27 Ordered PHOSPHORUS [CHEM] Routine Lab 05/21/21 07:27 Ordered PROCALCITONIN [REF] Routine Lab 05/21/21 07:25 Ordered VITAMIN D,25-HYDROXY [CHEM] Routine Lab 05/21/21 07:27 Ordered ALPRAZolam [Xanax] Med 05/21/21 07:24 Ordered 1 mg PO Q8H PRN Acetaminophen [TylenoL] Med 05/21/21 07:25 Ordered 650 mg PO Q4H PRN Albuterol [Proventil HFA] Med 05/21/21 07:27 Ordered See Dose Instructions INH Q2H PRN Albuterol [Proventil Neb Soln] Med 05/21/21 07:27 Ordered 2.5 mg NEB Q2H PRN Albuterol/Ipratropium [DuoNeb 3.0-0.5 MG/3 ML] Med 05/21/21 07:27 Ordered 3 ml NEB QIDRT PRN Baclofen [Baclofen] Med 05/21/21 09:00 Ordered 20 mg PO QID Docusate Sodium [Colace] Med 05/21/21 09:00 Ordered 100 mg PO BID Enoxaparin [Lovenox] Med 05/21/21 09:00 Ordered 40 mg SUBCUT DAILY Famotidine [Pepcid] Med 05/21/21 09:00 Ordered 20 mg PO BID Fluticasone Propionate [Flonase] Med 05/21/21 09:00 Ordered 1 dose NASBOTH DAILY Gabapentin [Neurontin] Med 05/21/21 09:00 Ordered 2 cap PO QID Magnesium Hydroxide [Milk of Magnesia] Med 05/21/21 07:27 Ordered 30 ml PO Q12H PRN Mexiletine [Mexitil] Med 05/21/21 09:00 Ordered 150 mg PO TID Ondansetron [Zofran] Med 05/21/21 07:27 Ordered 4 mg IV Q6H PRN Remdesivir 100 mg Med 05/22/21 07:30 Ordered Sodium Chloride 0.9% [Normal Saline] 100 ml IV Q24H Sodium Chloride 0.9% [Saline Flush] Med 05/20/21 21:13 Active 10 ml FLUSH ASDIRECTED PRN Zinc Sulfate [Zincate] Med 05/21/21 09:00 Ordered 220 mg PO DAILY dexAMETHasone Med 05/21/21 09:00 Ordered 6 mg PO DAILY rOPINIRole [Requip] Med 05/21/21 17:00 Ordered 1 mg PO 1700,2100 Isolation [COMM] Stat Oth 05/21/21 07:25 Ordered Peripheral IV Insertion Adult [OM.PC] Stat Oth 05/20/21 21:13 Ordered RT Acapella [RESPCARE] Routine Oth 05/21/21 07:25 Ordered Code Status [Resuscitation Status] Routine Resus Stat 05/21/21 00:18 Ordered Medication Orders Acetaminophen (Acetaminophen 325 Mg Tab) 650 mg PO Q4H PRN PRN Reason: Fever Greater Than 101 Albuterol (Albuterol 0.083% 2.5 Mg/3 Ml Neb Soln) 2.5 mg NEB Q2H PRN PRN Reason: Shortness Of Breath/wheezing Albuterol (Albuterol 6.7 Gm Inhaler) 0 gm INH Q2H PRN PRN Reason: SOB/Wheezing Albuterol/Ipratropium (Albuterol/Ipratropium 3.0-0.5 Mg/3 Ml Neb Soln) 3 ml NEB QIDRT PRN PRN Reason: Shortness Of Breath/wheezing Alprazolam (Alprazolam 1 Mg Tab) 1 mg PO Q8H PRN PRN Reason: Anxiety Baclofen (Baclofen 10 Mg Tab) 20 mg PO QID [facility] Dexamethasone (Dexamethasone 4 Mg Tab) 6 mg PO DAILY [facility] Stop: 05/29/21 09:01 Docusate Sodium (Docusate Sodium 100 Mg Cap) 100 mg PO BID [facility] Enoxaparin Sodium (Enoxaparin 40 Mg/0.4 Ml Syringe) 40 mg SUBCUT DAILY [facility] Famotidine (Famotidine 20 Mg Tab) 20 mg PO BID [facility] Fluticasone Propionate (Fluticasone Propionate Nasal [place] 16 Gm Bottle) 0 gm NASBOTH DAILY [facility] Gabapentin (Gabapentin 600 Mg Tab) 600 mg PO QID [facility] Remdesivir 100 mg/ Sodium (Chloride) 100 mls @ 100 mls/hr IV Q24H [facility] Stop: 05/25/21 22:59 Magnesium Hydroxide (Magnesium Hydroxide 400 Mg/5 Ml Susp 30 Ml Cup) 30 ml PO Q12H PRN PRN Reason: Constipation Mexiletine HCl (Mexiletine 150 Mg Cap) 150 mg PO TID [facility] Ondansetron HCl (Ondansetron 4 Mg/2 Ml Sdv) 4 mg IV Q6H PRN PRN Reason: Nausea/Vomiting Ropinirole HCl (Ropinirole 1 Mg Tab) 1 mg PO 1700,2100 [facility] Sodium Chloride (Sodium Chloride 0.9% 10 Ml Syringe) 10 ml FLUSH ASDIRECTED PRN PRN Reason: Keep Vein Open Last Admin: 05/20/21 21:50 Dose: 10 ml Documented by: FLACO Zinc Sulfate (Zinc Sulfate 220 Mg Cap) 220 mg PO DAILY [facility] Assessment/Plan Comment:: Pneumonia due to COVID-19 virus Acute respiratory failure with hypoxia History of multiple pulmonary nodules Nocturnal oxygen desaturation Elevated CRP * Oxygen as needed with goal saturations of 87 to 95% * Dexamethasone 6 mg for 10 days * Remdesivir for 5 days * RT consultation * Prone whenever able * IS/Acapella * Zinc supplementation * Famotidine 20 mg twice daily * Daily labs * Every 48 hour D-dimer * Lovenox 40 mg daily * As needed DuoNebs * As needed albuterol nebulizer * As needed albuterol MDI * Ambulate around room * Airborne/contact precautions * Check procalcitonin * Telemetry * Continuous pulse oximetry Thrombocytopenia * Likely secondary to above * Monitor labs * May need to discontinue Lovenox if worsening Hypophosphatemia Hypoalbuminemia * [employer]aker [employer] consultation * Supplement sodium phosphorous * Monitor * Likely worsened by COVID-19 and poor intake Hypokalemia, Resolved * Supplemented in ED * Monitor labs ANDREAS (acute kidney injury), Resolved * Monitor labs * Caution with IV fluids due to COVID-19 pneumonia Smoker * Patient currently refusing nicotine patch * Cessation counseling * Offer nicotine patches at discharge * Nursing may apply 14 mg nicotine patch as needed if patient requests GERD (gastroesophageal reflux disease) IBS (irritable bowel syndrome) * No acute concerns * Famotidine 20 mg twice daily as above Endometriosis * No acute concerns Chronic back pain Fibromyalgia Rheumatoid arthritis RLS (restless legs syndrome) Lumbar degenerative disc disease History of lumbar spinal fusion Chronic pain syndrome * Pain medications as ordered * Home medications as ordered * Consult PT * No acute concerns Anxiety PTSD (post-traumatic stress disorder) * No acute concerns * Home medications as ordered Code status: Full code PCP: Dr. Kothari VTE prophylaxis: Lovenox Disposition: Patient admitted to ICU as MedSurg overflow with telemetry for treatment of COVID-19 pneumonia. Length of stay likely 4 to 5 days pending progress and improvements with oxygen requirements. - Mortality Measure Prognosis:: Good
[2021-05-21] MEDS: Docusate Sodium 100 MG Cap PO SCH ×2 (08:18→20:07)
[2021-05-21] MEDS: Baclofen 10 MG Tab PO SCH ×4 (08:18→20:08)
[2021-05-21] MEDS: Famotidine 20 MG Tab PO SCH ×2 (08:18→20:09)
[2021-05-21] MEDS: Enoxaparin 40 MG/0.4 ML Syringe SUBCUT SCH (08:18)
[2021-05-21] MEDS: Gabapentin 600 MG Tab PO SCH ×4 (08:19→20:10)
[2021-05-21] MEDS: Dexamethasone 4 MG Tab PO SCH (08:19)
[2021-05-21] MEDS: Zinc Sulfate 220 MG Cap PO SCH (08:19)
[2021-05-21 08:27] LABS: VITAMIN D,25-HYDROXY 34.5 ng/ml (30.0-100.0)
[2021-05-21] MEDS: Mexiletine 150 MG Cap PO SCH ×3 (08:31→20:11)
[2021-05-21] MEDS: Albuterol 6.7 GM Inhaler INH PRN (08:42)
[2021-05-21] MEDS: Fluticasone Propionate Nasal Spray 16 GM Bottle NASBOTH SCH (08:44)
[2021-05-21] MEDS ORDERED: Sodium Phosphate 30 MMOLE in Sodium Chloride 0.9% 250 ML IV ONE (10:00)
[2021-05-21] MEDS: Ondansetron 4 MG/2 ML SDV IV PRN (10:00)
[2021-05-21] MEDS ORDERED: Witch Hazel Medicated Pads 40/Jar TOP PRN (12:41)
[2021-05-21] MEDS ORDERED: Hydrocortisone 1% Crm 30 GM Tube TOP PRN (12:41)
[2021-05-21] MEDS: rOPINIRole 1 MG Tab PO SCH ×2 (16:51→20:09)
[2021-05-21] MEDS ORDERED: Loperamide 2 MG Cap PO PRN (17:29)
[2021-05-21] MEDS: traZODone 50 MG Tab PO PRN (20:58)
[2021-05-21] MEDS: traMADol 50 MG Tab PO PRN (20:59)
[2021-05-21] MEDS: REMDESIVIR 100 MG in Sodium Chloride 0.9% 250 ML IV SCH (21:01)
[2021-05-21] MEDS ORDERED: REMDESIVIR 100 MG in Sodium Chloride 0.9% 100 ML IV SCH (22:00)
[2021-05-22] MEDS: Acetaminophen 325 MG Tab PO PRN ×2 (01:52→22:46)
--- NOTE | 2021-05-22 07:07 | PCM.PN ---
<Zenon Low - Last Filed: 05/22/21 09:07> - General Info Date of Service: 05/22/21 Admission Dx/Problem (Free Text): Admission Diagnosis/Problem Admission Diagnosis/Problem Hypoxia Functional Status: Reports: Pain Controlled, Tolerating Diet, Ambulating, Urinating, Incentive Spirometry, Other (Acapella ). Denies: New Symptoms - Review of Systems General: Reports: Weakness, Fatigue, Malaise. Denies: Fever, Chills HEENT: Reports: Sinus Congestion, Sore Throat. Denies: Headaches Pulmonary: Reports: Shortness of Breath, Pleuritic Chest Pain, Cough, Sputum, Wheezing Cardiovascular: Reports: No Symptoms, Dyspnea on Exertion. Denies: Chest Pain, Palpitations, Edema Gastrointestinal: Reports: No Symptoms. Denies: Abdominal Pain, Constipation, Diarrhea, Nausea, Vomiting Genitourinary: Reports: No Symptoms. Denies: Pain Musculoskeletal: Reports: Back Pain, Other (Generalized myalgias) Skin: Reports: No Symptoms. Denies: Cyanosis Neurological: Reports: Weakness. Denies: Confusion, Dizziness, Headache, Numbness, Pre-Existing Deficit, Seizure, Syncope, Tingling, Difficulty Walking, Gait Disturbance Psychiatric: Reports: No Symptoms - Patient Data Vitals - Most Recent: Last Vital Signs Temp 97 F 05/22/21 04:00 Pulse 73 05/22/21 05:43 Resp 18 05/22/21 05:43 BP 121/75 05/22/21 04:00 Pulse Ox 92 L 05/22/21 06:40 Weight - Most Recent: 168 lb 3.2 oz I&O - Last 24 Hours: Intake & Output 05/21/21 05/22/21 05/22/21 22:59 06:59 14:59 Intake Total 1050 490 Balance 1050 490 Lab Results Last 24 Hours: Laboratory Results - last 24 hr 05/21/21 05/21/21 05/21/21 Range/Units 07:04 07:04 07:04 WBC 9.36 (3.98-10.04) K/mm3 RBC 4.28 (3.98-5.22) M/mm3 Hgb 13.2 (11.2-15.7) gm/dl Hct 40.9 (34.1-44.9) % MCV 95.6 H (79.4-94.8) fl MCH 30.8 (25.6-32.2) pg MCHC 32.3 (32.2-35.5) g/dl RDW Std Deviation 53.3 H (36.4-46.3) fL Plt Count 128 L (182-369) K/mm3 MPV 11.2 (9.4-12.3) fl Neut % (Auto) 91.8 H (34.0-71.1) % Lymph % (Auto) 6.2 L (19.3-51.7) % [place] % (Auto) 1.7 L (4.7-12.5) % Eos % (Auto) 0 L (0.7-5.8) Baso % (Auto) 0.1 (0.1-1.2) % Neut # (Auto) 8.59 H (1.56-6.13) K/mm3 Lymph # (Auto) 0.58 L (1.18-3.74) K/mm3 [place] # (Auto) 0.16 L (0.24-0.36) K/mm3 Eos # (Auto) 0.00 L (0.04-0.36) K/mm3 Baso # (Auto) 0.01 (0.01-0.08) K/mm3 Manual Slide Review Normal smear Sodium 137 (136-145) mEq/L Potassium 4.2 (3.5-5.1) mEq/L Chloride 102 (98-107) mEq/L Carbon Dioxide 27 (21-32) mEq/L Anion Gap 12.2 (5-15) BUN 19 H (7-18) mg/dL Creatinine 0.9 (0.55-1.02) mg/dL Est Cr Clr Drug Dosing 72.16 mL/min Estimated GFR (MDRD) > 60 (>60) mL/min BUN/Creatinine Ratio 21.1 H (14-18) Glucose 165 H (70-99) mg/dL Calcium 8.0 L (8.5-10.1) mg/dL Phosphorus (2.6-4.7) mg/dL Magnesium (1.8-2.4) mg/dL Total Bilirubin 0.2 (0.2-1.0) mg/dL AST 52 H (15-37) U/L ALT 42 (14-59) U/L Alkaline Phosphatase 98 (46-116) U/L C-Reactive Protein 29.0 H* (<1.0) mg/dL Total Protein 5.8 L (6.4-8.2) g/dl Albumin 2.5 L (3.4-5.0) g/dl Globulin 3.3 gm/dL Albumin/Globulin Ratio 0.8 L (1-2) Vitamin D 25-Hydroxy (30.0-100.0) ng/ml Procalcitonin 0.27 H ng/mL 05/21/21 05/22/21 05/22/21 Range/Units 07:04 05:54 05:54 WBC 10.34 H (3.98-10.04) K/mm3 RBC 4.08 (3.98-5.22) M/mm3 Hgb 12.8 (11.2-15.7) gm/dl Hct 39.2 (34.1-44.9) % MCV 96.1 H (79.4-94.8) fl MCH 31.4 (25.6-32.2) pg MCHC 32.7 (32.2-35.5) g/dl RDW Std Deviation 54.5 H (36.4-46.3) fL Plt Count 163 L (182-369) K/mm3 MPV 12.2 (9.4-12.3) fl Neut % (Auto) 81.2 H (34.0-71.1) % Lymph % (Auto) 12.5 L (19.3-51.7) % [place] % (Auto) 5.8 (4.7-12.5) % Eos % (Auto) 0 L (0.7-5.8) Baso % (Auto) 0.1 (0.1-1.2) % Neut # (Auto) 8.40 H (1.56-6.13) K/mm3 Lymph # (Auto) 1.29 (1.18-3.74) K/mm3 [place] # (Auto) 0.60 H (0.24-0.36) K/mm3 Eos # (Auto) 0.00 L (0.04-0.36) K/mm3 Baso # (Auto) 0.01 (0.01-0.08) K/mm3 Manual Slide Review Normal smear Sodium 138 (136-145) mEq/L Potassium 4.3 (3.5-5.1) mEq/L Chloride 102 (98-107) mEq/L Carbon Dioxide 28 (21-32) mEq/L Anion Gap 12.3 (5-15) BUN 19 H (7-18) mg/dL Creatinine 0.8 (0.55-1.02) mg/dL Est Cr Clr Drug Dosing 81.18 mL/min Estimated GFR (MDRD) > 60 (>60) mL/min BUN/Creatinine Ratio 23.8 H (14-18) Glucose 130 H (70-99) mg/dL Calcium 8.2 L (8.5-10.1) mg/dL Phosphorus 2.1 L 3.0 (2.6-4.7) mg/dL Magnesium 2.2 2.4 (1.8-2.4) mg/dL Total Bilirubin 0.3 (0.2-1.0) mg/dL AST 61 H (15-37) U/L ALT 40 (14-59) U/L Alkaline Phosphatase 81 (46-116) U/L C-Reactive Protein (<1.0) mg/dL Total Protein 6.0 L (6.4-8.2) g/dl Albumin 2.2 L (3.4-5.0) g/dl Globulin 3.8 gm/dL Albumin/Globulin Ratio 0.6 L (1-2) Vitamin D 25-Hydroxy 34.5 (30.0-100.0) ng/ml Procalcitonin ng/mL Med Orders - Current: Current Medications Acetaminophen (Acetaminophen 325 Mg Tab) 650 mg PO Q4H PRN PRN Reason: Fever Greater Than 101 Last Admin: 05/22/21 01:52 Dose: 650 mg Documented by: Albuterol (Albuterol 0.083% 2.5 Mg/3 Ml Neb Soln) 2.5 mg NEB Q2H PRN PRN Reason: Shortness Of Breath/wheezing Albuterol (Albuterol 6.7 Gm Inhaler) 0 gm INH Q2H PRN PRN Reason: SOB/Wheezing Last Admin: 05/21/21 08:42 Dose: 2 each Documented by: Albuterol/Ipratropium (Albuterol/Ipratropium 3.0-0.5 Mg/3 Ml Neb Soln) 3 ml NEB QIDRT PRN PRN Reason: Shortness Of Breath/wheezing Alprazolam (Alprazolam 1 Mg Tab) 1 mg PO Q8H PRN PRN Reason: Anxiety Baclofen (Baclofen 10 Mg Tab) 20 mg PO QID [facility] Last Admin: 05/21/21 20:08 Dose: 20 mg Documented by: Dexamethasone (Dexamethasone 4 Mg Tab) 6 mg PO DAILY [facility] Stop: 05/29/21 09:01 Last Admin: 05/21/21 08:19 Dose: 6 mg Documented by: Docusate Sodium (Docusate Sodium 100 Mg Cap) 100 mg PO BID [facility] Last Admin: 05/21/21 20:07 Dose: Not Given Documented by: Enoxaparin Sodium (Enoxaparin 40 Mg/0.4 Ml Syringe) 40 mg SUBCUT DAILY [facility] Last Admin: 05/21/21 08:18 Dose: 40 mg Documented by: Famotidine (Famotidine 20 Mg Tab) 20 mg PO BID [facility] Last Admin: 05/21/21 20:09 Dose: 20 mg Documented by: Fluticasone Propionate (Fluticasone Propionate Nasal [place] 16 Gm Bottle) 0 gm NASBOTH DAILY [facility] Last Admin: 05/21/21 08:44 Dose: 1 dose Documented by: Gabapentin (Gabapentin 600 Mg Tab) 600 mg PO QID [facility] Last Admin: 05/21/21 20:10 Dose: 600 mg Documented by: Hydrocortisone (Hydrocortisone 1% Crm 30 Gm Tube) 0 gm TOP TID PRN PRN Reason: Hemorrhoids Last Admin: 05/21/21 14:03 Dose: 30 gm Documented by: Remdesivir 100 mg/ Sodium (Chloride) 250 mls @ 250 mls/hr IV Q24H [facility] Stop: 05/24/21 22:59 Last Admin: 05/21/21 21:01 Dose: 250 mls/hr Documented by: Loperamide HCl (Loperamide 2 Mg Cap) 2 mg PO Q4H PRN PRN Reason: Diarrhea Last Admin: 05/21/21 18:25 Dose: 2 mg Documented by: Magnesium Hydroxide (Magnesium Hydroxide 400 Mg/5 Ml Susp 30 Ml Cup) 30 ml PO Q12H PRN PRN Reason: Constipation Mexiletine HCl (Mexiletine 150 Mg Cap) 150 mg PO TID [facility] Last Admin: 05/21/21 20:11 Dose: 150 mg Documented by: Miscellaneous Information (Remove Patch) 0 ea TRDERM DAILY [facility] Nicotine (Nicotine 14 Mg/24 Hr Patch) 14 mg TRDERM DAILY [facility] [place] Ondansetron HCl (Ondansetron 4 Mg/2 Ml Sdv) 4 mg IV Q6H PRN PRN Reason: Nausea/Vomiting Last Admin: 05/21/21 10:00 Dose: 4 mg Documented by: Ropinirole HCl (Ropinirole 1 Mg Tab) 1 mg PO 1700,2100 [facility] Last Admin: 05/21/21 20:09 Dose: 1 mg Documented by: Sodium Chloride (Sodium Chloride 0.9% 10 Ml Syringe) 10 ml FLUSH ASDIRECTED PRN PRN Reason: Keep Vein Open Last Admin: 05/20/21 21:50 Dose: 10 ml Documented by: Tramadol HCl (Tramadol 50 Mg Tab) 50 mg PO Q6H PRN PRN Reason: Pain Last Admin: 05/21/21 20:59 Dose: 50 mg Documented by: Trazodone HCl (Trazodone 50 Mg Tab) 150 mg PO BEDTIME PRN PRN Reason: Insomnia Last Admin: 05/21/21 20:58 Dose: 150 mg Documented by: Anais Gracia (Anais Garcia Medicated Pads 40/Jar) 1 pad TOP ASDIRECTED PRN PRN Reason: Hemorrhoids Zinc Sulfate (Zinc Sulfate 220 Mg Cap) 220 mg PO DAILY [facility] [place] Last Admin: 05/21/21 08:19 Dose: 220 mg Documented by: Discontinued Medications Acetaminophen (Acetaminophen 325 Mg Tab) 650 mg PO NOW ONE Stop: 05/20/21 23:00 Last Admin: 05/20/21 23:42 Dose: 650 mg Documented by: Baclofen (Baclofen 10 Mg Tab) 20 mg PO ONETIME ONE Stop: 05/20/21 22:59 Last Admin: 05/20/21 23:44 Dose: 20 mg Documented by: Dexamethasone (Dexamethasone 6 Mg Tablet) 6 mg PO ONETIME ONE Stop: 05/20/21 21:51 Last Admin: 05/20/21 22:01 Dose: 6 mg Documented by: Gabapentin (Gabapentin 300 Mg Cap) 600 mg PO ONETIME ONE Stop: 05/20/21 23:00 Last Admin: 05/20/21 23:41 Dose: 600 mg Documented by: Remdesivir 200 mg/ Sodium (Chloride) 250 mls @ 250 mls/hr IV ONETIME ONE Stop: 12/07/21 22:41 Last Admin: 05/20/21 23:40 Dose: 250 mls/hr Documented by: Remdesivir 100 mg/ Sodium (Chloride) 100 mls @ 100 mls/hr IV Q24H [facility] Stop: 05/24/21 22:59 Sodium Phosphate 30 mmole/ (Sodium Chloride) 260 mls @ 86.667 mls/hr IV ONETIME ONE Stop: 05/21/21 12:59 Last Admin: 05/21/21 11:22 Dose: 86.667 mls/hr Documented by: Mexiletine HCl (Mexiletine 150 Mg Cap) 150 mg PO ONETIME ONE Stop: 05/20/21 23:00 Last Admin: 05/20/21 23:45 Dose: 150 mg Documented by: Potassium Chloride (Potassium Chloride 20 Meq Tab.Er) 40 meq PO ONETIME ONE Stop: 05/20/21 22:41 Last Admin: 05/20/21 23:40 Dose: 40 meq Documented by: Ropinirole HCl (Ropinirole 1 Mg Tab) 1 mg PO ONETIME ONE Stop: 05/20/21 22:59 Last Admin: 05/20/21 23:41 Dose: 1 mg Documented by: - Exam Quality Assessment: Supplemental Oxygen (2 L via nasal cannula), DVT Prophylax is. No: Urine Catheter General: Alert, Oriented, Cooperative, No Acute Distress HEENT: Pupils Equal, Pupils Reactive, Mucous Membr. Moist/[place] Neck: Supple, Trachea Midline Lungs: Normal Respiratory Effort, Decreased Breath Sounds, Crackles (Improving) Cardiovascular: Regular Rate, Regular Rhythm GI/Abdominal Exam: Normal Bowel Sounds, Soft, Non-Tender, No Distention, No Abnormal Bruit (Female) Exam: Deferred Back Exam: Normal Inspection, Full Range of Motion Extremities: Normal Range of Motion, Non-Tender, No Pedal Edema, Normal Capillary Refill, Other (Cast in place on right lower extremity good sensation and movement with toes) Skin: Warm, Dry, Intact Neurological: No New Focal Deficit Psy/Mental Status: Alert, Normal Affect, Normal Mood - Patient Data Lab Results Last 24 hrs: Laboratory Results - last 24 hr 05/21/21 05/21/21 05/21/21 Range/Units 07:04 07:04 07:04 WBC 9.36 (3.98-10.04) K/mm3 RBC 4.28 (3.98-5.22) M/mm3 Hgb 13.2 (11.2-15.7) gm/dl Hct 40.9 (34.1-44.9) % MCV 95.6 H (79.4-94.8) fl MCH 30.8 (25.6-32.2) pg MCHC 32.3 (32.2-35.5) g/dl RDW Std Deviation 53.3 H (36.4-46.3) fL Plt Count 128 L (182-369) K/mm3 MPV 11.2 (9.4-12.3) fl Neut % (Auto) 91.8 H (34.0-71.1) % Lymph % (Auto) 6.2 L (19.3-51.7) % [place] % (Auto) 1.7 L (4.7-12.5) % Eos % (Auto) 0 L (0.7-5.8) Baso % (Auto) 0.1 (0.1-1.2) % Neut # (Auto) 8.59 H (1.56-6.13) K/mm3 Lymph # (Auto) 0.58 L (1.18-3.74) K/mm3 [place] # (Auto) 0.16 L (0.24-0.36) K/mm3 Eos # (Auto) 0.00 L (0.04-0.36) K/mm3 Baso # (Auto) 0.01 (0.01-0.08) K/mm3 Manual Slide Review Normal smear Sodium 137 (136-145) mEq/L Potassium 4.2 (3.5-5.1) mEq/L Chloride 102 (98-107) mEq/L Carbon Dioxide 27 (21-32) mEq/L Anion Gap 12.2 (5-15) BUN 19 H (7-18) mg/dL Creatinine 0.9 (0.55-1.02) mg/dL Est Cr Clr Drug Dosing 72.16 mL/min Estimated GFR (MDRD) > 60 (>60) mL/min BUN/Creatinine Ratio 21.1 H (14-18) Glucose 165 H (70-99) mg/dL Calcium 8.0 L (8.5-10.1) mg/dL Phosphorus (2.6-4.7) mg/dL Magnesium (1.8-2.4) mg/dL Total Bilirubin 0.2 (0.2-1.0) mg/dL AST 52 H (15-37) U/L ALT 42 (14-59) U/L Alkaline Phosphatase 98 (46-116) U/L C-Reactive Protein 29.0 H* (<1.0) mg/dL Total Protein 5.8 L (6.4-8.2) g/dl Albumin 2.5 L (3.4-5.0) g/dl Globulin 3.3 gm/dL Albumin/Globulin Ratio 0.8 L (1-2) Vitamin D 25-Hydroxy (30.0-100.0) ng/ml Procalcitonin 0.27 H ng/mL 05/21/21 05/22/21 05/22/21 Range/Units 07:04 05:54 05:54 WBC 10.34 H (3.98-10.04) K/mm3 RBC 4.08 (3.98-5.22) M/mm3 Hgb 12.8 (11.2-15.7) gm/dl Hct 39.2 (34.1-44.9) % MCV 96.1 H (79.4-94.8) fl MCH 31.4 (25.6-32.2) pg MCHC 32.7 (32.2-35.5) g/dl RDW Std Deviation 54.5 H (36.4-46.3) fL Plt Count 163 L (182-369) K/mm3 MPV 12.2 (9.4-12.3) fl Neut % (Auto) 81.2 H (34.0-71.1) % Lymph % (Auto) 12.5 L (19.3-51.7) % [place] % (Auto) 5.8 (4.7-12.5) % Eos % (Auto) 0 L (0.7-5.8) Baso % (Auto) 0.1 (0.1-1.2) % Neut # (Auto) 8.40 H (1.56-6.13) K/mm3 Lymph # (Auto) 1.29 (1.18-3.74) K/mm3 [place] # (Auto) 0.60 H (0.24-0.36) K/mm3 Eos # (Auto) 0.00 L (0.04-0.36) K/mm3 Baso # (Auto) 0.01 (0.01-0.08) K/mm3 Manual Slide Review Normal smear Sodium 138 (136-145) mEq/L Potassium 4.3 (3.5-5.1) mEq/L Chloride 102 (98-107) mEq/L Carbon Dioxide 28 (21-32) mEq/L Anion Gap 12.3 (5-15) BUN 19 H (7-18) mg/dL Creatinine 0.8 (0.55-1.02) mg/dL Est Cr Clr Drug Dosing 81.18 mL/min Estimated GFR (MDRD) > 60 (>60) mL/min BUN/Creatinine Ratio 23.8 H (14-18) Glucose 130 H (70-99) mg/dL Calcium 8.2 L (8.5-10.1) mg/dL Phosphorus 2.1 L 3.0 (2.6-4.7) mg/dL Magnesium 2.2 2.4 (1.8-2.4) mg/dL Total Bilirubin 0.3 (0.2-1.0) mg/dL AST 61 H (15-37) U/L ALT 40 (14-59) U/L Alkaline Phosphatase 81 (46-116) U/L C-Reactive Protein (<1.0) mg/dL Total Protein 6.0 L (6.4-8.2) g/dl Albumin 2.2 L (3.4-5.0) g/dl Globulin 3.8 gm/dL Albumin/Globulin Ratio 0.6 L (1-2) Vitamin D 25-Hydroxy 34.5 (30.0-100.0) ng/ml Procalcitonin ng/mL Result Diagrams: 05/22/21 05:54 05/22/21 05:54 Sepsis Event Note - Evaluation Sepsis Screening Result: No Definite Risk - Focused Exam Vital Signs: Vital Signs Temp Pulse Resp BP Pulse Ox Pulse Ox 05/22/21 06:40 92 L 05/22/21 05:43 73 18 90 L 05/22/21 04:00 97 F 69 17 121/75 90 L 05/21/21 23:55 97.7 F 84 13 96/53 L 91 L 05/21/21 20:00 99 F 97 23 H 98/58 L 95 05/21/21 19:46 91 L - Problem List & Annotations (1) Hypokalemia SNOMED Code(s): 69549752 Code(s): E87.6 - HYPOKALEMIA Status: Resolved Priority: High Current Visit: Yes (2) Pneumonia due to COVID-19 virus SNOMED Code(s): 489721511726041058 Code(s): U07.1 - COVID-19; J12.82 - PNEUMONIA DUE TO CORONAVIRUS DISEASE 2019 Status: Acute Priority: High Current Visit: Yes (3) Thrombocytopenia SNOMED Code(s): 473676794 Code(s): D69.6 - THROMBOCYTOPENIA, UNSPECIFIED Status: Acute Priority: Medium Current Visit: Yes (4) ANDREAS (acute kidney injury) SNOMED Code(s): 86566836, 44922152 Code(s): N17.9 - ACUTE KIDNEY FAILURE, UNSPECIFIED Status: Resolved Priority: High Current Visit: Yes (5) Acute respiratory failure with hypoxia SNOMED Code(s): 11217832, 667217184 Code(s): J96.01 - ACUTE RESPIRATORY FAILURE WITH HYPOXIA Status: Acute Priority: High Current Visit: Yes (6) History of multiple pulmonary nodules SNOMED Code(s): 146874747 Code(s): Z87.898 - PERSONAL HISTORY OF OTHER SPECIFIED CONDITIONS Status: Chronic Priority: Low Current Visit: No (7) Nocturnal oxygen desaturation SNOMED Code(s): 208430930 Code(s): G47.34 - IDIO SLEEP RELATED NONOBSTRUCTIVE ALVEOLAR HYPOVENTILATION Status: Chronic Priority: Medium Current Visit: No (8) GERD (gastroesophageal reflux disease) SNOMED Code(s): 843121051 Code(s): K21.9 - GASTRO-ESOPHAGEAL REFLUX DISEASE WITHOUT ESOPHAGITIS Status: Chronic Priority: Low Current Visit: No Qualifiers: Esophagitis presence: esophagitis presence not specified Qualified Code(s): K21.9 - Gastro-esophageal reflux disease without esophagitis (9) IBS (irritable bowel syndrome) SNOMED Code(s): 93886826 Code(s): K58.9 - IRRITABLE BOWEL SYNDROME WITHOUT DIARRHEA Status: Chronic Priority: Low Current Visit: No Qualifiers: Irritable bowel syndrome type: unspecified Qualified Code(s): K58.9 - Irritable bowel syndrome without diarrhea (10) Endometriosis SNOMED Code(s): 717510826 Code(s): N80.9 - ENDOMETRIOSIS, UNSPECIFIED Status: Chronic Priority: Low Current Visit: No (11) Chronic back pain SNOMED Code(s): 282671007 Code(s): M54.9 - DORSALGIA, UNSPECIFIED; G89.29 - OTHER CHRONIC PAIN Status: Chronic Priority: Low Current Visit: No Qualifiers: Back pain location: low back pain Back pain laterality: midline Sciatica presence: without sciatica Qualified Code(s): M54.50 - Low back pain, unspecified; G89.29 - Other chronic pain (12) Fibromyalgia SNOMED Code(s): 380282515 Code(s): M79.7 - FIBROMYALGIA Status: Chronic Priority: Low Current Visit: No (13) Rheumatoid arthritis SNOMED Code(s): 69214529 Code(s): M06.9 - RHEUMATOID ARTHRITIS, UNSPECIFIED Status: Chronic Priority: Low Current Visit: No Qualifiers: Rheumatoid arthritis location: unspecified site Rheumatoid factor presence: unspecified presence Qualified Code(s): M06.9 - Rheumatoid arthritis, unspecified (14) RLS (restless legs syndrome) SNOMED Code(s): 97686631 Code(s): G25.81 - RESTLESS LEGS SYNDROME Status: Chronic Priority: Low Current Visit: No (15) Lumbar degenerative disc disease SNOMED Code(s): 22271686 Code(s): M51.36 - OTHER INTERVERTEBRAL DISC DEGENERATION, LUMBAR REGION Status: Chronic Priority: Low Current Visit: No (16) Anxiety SNOMED Code(s): 99891879 Code(s): F41.9 - ANXIETY DISORDER, UNSPECIFIED Status: Chronic Priority: Medium Current Visit: Yes (17) PTSD (post-traumatic stress disorder) SNOMED Code(s): 51683970 Code(s): F43.10 - POST-TRAUMATIC STRESS DISORDER, UNSPECIFIED Status: Chronic Priority: Low Current Visit: No (18) History of lumbar spinal fusion SNOMED Code(s): 48936411692687 Code(s): Z98.1 - ARTHRODESIS STATUS Status: Chronic Priority: Low Current Visit: No (19) Smoker SNOMED Code(s): 66850749 Code(s): F17.200 - NICOTINE DEPENDENCE, UNSPECIFIED, UNCOMPLICATED Status: Chronic Priority: Medium Current Visit: Yes (20) Chronic pain syndrome SNOMED Code(s): 748864548 Code(s): G89.4 - CHRONIC PAIN SYNDROME Status: Chronic Priority: Medium Current Visit: Yes (21) Hypoalbuminemia SNOMED Code(s): 479023195 Code(s): E88.09 - OTH DISORDERS OF PLASMA-PROTEIN METABOLISM, NEC Status: Acute Priority: Medium Current Visit: Yes (22) Hypophosphatemia SNOMED Code(s): 9041235 Code(s): E83.39 - OTHER DISORDERS OF PHOSPHORUS METABOLISM Status: Resolved Priority: Medium Current Visit: Yes (23) Elevated C-reactive protein (CRP) SNOMED Code(s): 555982884849809 Code(s): R79.82 - ELEVATED C-REACTIVE PROTEIN (CRP) Status: Acute Priority: Medium Current Visit: Yes - Problem List Review Problem List Initiated/Reviewed/Updated: Yes - My Orders Last 24 Hours: My Active Orders 05/21/21 07:24 ALPRAZolam [Xanax] 1 mg PO Q8H PRN 05/21/21 07:25 Positioning, Patient [RC] ASDIRECTED RT Incentive Spirometry [RC] ASDIRECTED Acetaminophen [TylenoL] 650 mg PO Q4H PRN Isolation [COMM] Stat RT Acapella [RESPCARE] Routine 05/21/21 07:27 Height and Weight [RC] 06 Up ad Johanne [RC] ASDIRECTED Vital Signs [RC] Q4HR Albuterol [Proventil HFA] See Dose Instructions INH Q2H PRN Albuterol [Proventil Neb Soln] 2.5 mg NEB Q2H PRN Albuterol/Ipratropium [DuoNeb 3.0-0.5 MG/3 ML] 3 ml NEB QIDRT PRN Magnesium Hydroxide [Milk of Magnesia] 30 ml PO Q12H PRN Ondansetron [Zofran] 4 mg IV Q6H PRN 05/21/21 07:28 Intake and Output [RC] 04,16 Pulse Oximetry [RC] CONTINUOUS RT Aerosol Therapy [RC] ASDIRECTED 05/21/21 07:29 Respiratory Care Assess and Treatment [CONS] Routine 05/21/21 09:00 Baclofen [Lioresal] 20 mg PO QID Docusate Sodium [Colace] 100 mg PO BID Enoxaparin [Lovenox] 40 mg SUBCUT DAILY Famotidine [Pepcid] 20 mg PO BID Fluticasone Propionate [Flonase] 0 gm NASBOTH DAILY Gabapentin [Neurontin] 600 mg PO QID Mexiletine [Mexitil] 150 mg PO TID Zinc Sulfate [Zincate] 220 mg PO DAILY dexAMETHasone 6 mg PO DAILY 05/21/21 09:57 Consult to Physical Therapy [PT Evaluation and Treatment] [CONS] Routine 05/21/21 10:01 Consult to Senior Media [employer]anner [CONS] Routine 05/21/21 12:41 Hydrocortisone [Hydrocortisone 1% Crm] 0 gm TOP TID PRN witch Joon [Tucks] 1 pad TOP ASDIRECTED PRN 05/21/21 17:00 rOPINIRole [Requip] 1 mg PO 1700,2100 05/21/21 22:00 Remdesivir 100 mg Sodium Chloride 0.9% [Normal Saline] 250 ml IV Q24H 05/22/21 05:54 C-REACTIVE PROTEIN [CHEM] AM COMPREHENSIVE METABOLIC PN,CMP [CHEM] AM D Dimer [D-DIMER QUANTITATIVE] [COAG] Q48H MAGNESIUM [CHEM] AM PHOSPHORUS [CHEM] AM 05/22/21 09:00 Nicotine [Habitrol] 14 mg TRDERM DAILY 05/23/21 05:11 C-REACTIVE PROTEIN [CHEM] AM CBC WITH AUTO DIFF [HEME] AM COMPREHENSIVE METABOLIC PN,CMP [CHEM] AM MAGNESIUM [CHEM] AM 05/23/21 09:00 Remove Patch 0 ea TRDERM DAILY 05/24/21 05:11 C-REACTIVE PROTEIN [CHEM] AM CBC WITH AUTO DIFF [HEME] AM COMPREHENSIVE METABOLIC PN,CMP [CHEM] AM D Dimer [D-DIMER QUANTITATIVE] [COAG] Q48H MAGNESIUM [CHEM] AM 05/25/21 05:11 C-REACTIVE PROTEIN [CHEM] AM CBC WITH AUTO DIFF [HEME] AM COMPREHENSIVE METABOLIC PN,CMP [CHEM] AM MAGNESIUM [CHEM] AM 05/26/21 05:11 D Dimer [D-DIMER QUANTITATIVE] [COAG] Q48H - Assessment Assessment:: 05/22/2021 50-year-old female admitted to the floor for treatment of her COVID-19 pneumonia. Overall she reports she is feeling better. She has had some concerns about her home medication and the timing of administration being different than when she takes it at home. Nursing instructed to discuss this with pharmacy and be sure we match up with when she takes them normally. She is down to 2 L of oxygen. Lung sounds have improved. She continues with her cast on her right lower extremity. Labs today show WBC of 10.34 which is likely steroid related. Hemoglobin 12.8. Platelet 163,000 which is improved. Neutrophils are elevated at 82.1. Smear is normal. D-dimer is 0.48. Sodium 138. Potassium 4.3. Chloride 102. Carbon dioxide 28. Anion gap is 12.3. BUN is 19. Creatinine 0.8. GFR greater than 60. Glucose 130. Calcium 8.2. Phosphorus is 3.0. Magnesium 2.4. Total bilirubin 0.3. AST 61, ALT 40, alkaline phosphatase 81. CRP is 19.1. Protein is 6.0. Albumin is 2.2. Procalcitonin obtained yesterday was 0.27. We will continue current treatment plan with dexamethasone 6 mg daily and remdesivir. She continues to utilize her incentive spirometry, Acapella, and prone frequently. Likely length of stay will be 4 more days pending progress and completion of remdesivir. - Plan Plan:: Pneumonia due to COVID-19 virus Acute respiratory failure with hypoxia History of multiple pulmonary nodules Nocturnal oxygen desaturation Elevated CRP * Oxygen as needed with goal saturations of 87 to 95% * Dexamethasone 6 mg for 10 days * Remdesivir for 5 days * RT consultation * Prone whenever able * IS/Acapella * Zinc supplementation * Famotidine 20 mg twice daily * Daily labs * Every 48 hour D-dimer * Lovenox 40 mg daily * As needed DuoNebs * As needed albuterol nebulizer * As needed albuterol MDI * Ambulate around room * Airborne/contact precautions * Check procalcitonin * Telemetry * Continuous pulse oximetry Thrombocytopenia, improving * Likely secondary to above * Monitor labs * May need to discontinue Lovenox if worsening Hypophosphatemia. Resolved Hypoalbuminemia * [employer] consultation * Monitor * Likely worsened by COVID-19 and poor intake Hypokalemia, Resolved * Supplemented in ED * Monitor labs ANDREAS (acute kidney injury), Resolved * Monitor labs * Caution with IV fluids due to COVID-19 pneumonia Smoker * Patient currently refusing nicotine patch * Cessation counseling * Offer nicotine patches at discharge * Nursing may apply 14 mg nicotine patch as needed if patient requests GERD (gastroesophageal reflux disease) IBS (irritable bowel syndrome) * No acute concerns * Famotidine 20 mg twice daily as above Endometriosis * No acute concerns Chronic back pain Fibromyalgia Rheumatoid arthritis RLS (restless legs syndrome) Lumbar degenerative disc disease History of lumbar spinal fusion Chronic pain syndrome * Pain medications as ordered * Home medications as ordered * Consult PT * No acute concerns Anxiety PTSD (post-traumatic stress disorder) * No acute concerns * Home medications as ordered Code status: Full code PCP: Dr. Kothari VTE prophylaxis: Lovenox Disposition: Patient admitted to ICU as MedSurg overflow with telemetry for treatment of COVID-19 pneumonia. Length of stay likely 4 to 5 days pending progress and improvements with oxygen requirements. <Eliseo Kate Jr - Last Filed: 05/22/21 18:25> - Patient Data Vitals - Most Recent: Last Vital Signs Temp 96.8 F L 05/22/21 16:00 Pulse 74 05/22/21 16:00 Resp 18 05/22/21 16:00 BP 121/75 05/22/21 16:00 Pulse Ox 94 L 05/22/21 16:00 I&O - Last 24 Hours: Intake & Output 05/22/21 05/22/21 05/22/21 06:59 14:59 22:59 Intake Total 490 480 700 Balance 490 480 700 Lab Results Last 24 Hours: Laboratory Results - last 24 hr 05/21/21 05/22/21 05/22/21 Range/Units 07:04 05:54 05:54 WBC 10.34 H (3.98-10.04) K/mm3 RBC 4.08 (3.98-5.22) M/mm3 Hgb 12.8 (11.2-15.7) gm/dl Hct 39.2 (34.1-44.9) % MCV 96.1 H (79.4-94.8) fl MCH 31.4 (25.6-32.2) pg MCHC 32.7 (32.2-35.5) g/dl RDW Std Deviation 54.5 H (36.4-46.3) fL Plt Count 163 L (182-369) K/mm3 MPV 12.2 (9.4-12.3) fl Neut % (Auto) 81.2 H (34.0-71.1) % Lymph % (Auto) 12.5 L (19.3-51.7) % [place] % (Auto) 5.8 (4.7-12.5) % Eos % (Auto) 0 L (0.7-5.8) Baso % (Auto) 0.1 (0.1-1.2) % Neut # (Auto) 8.40 H (1.56-6.13) K/mm3 Lymph # (Auto) 1.29 (1.18-3.74) K/mm3 [place] # (Auto) 0.60 H (0.24-0.36) K/mm3 Eos # (Auto) 0.00 L (0.04-0.36) K/mm3 Baso # (Auto) 0.01 (0.01-0.08) K/mm3 Manual Slide Review Normal smear D-Dimer, Quantitative (0.19-0.50) mg/L Sodium 138 (136-145) mEq/L Potassium 4.3 (3.5-5.1) mEq/L Chloride 102 (98-107) mEq/L Carbon Dioxide 28 (21-32) mEq/L Anion Gap 12.3 (5-15) BUN 19 H (7-18) mg/dL Creatinine 0.8 (0.55-1.02) mg/dL Est Cr Clr Drug Dosing 81.18 mL/min Estimated GFR (MDRD) > 60 (>60) mL/min BUN/Creatinine Ratio 23.8 H (14-18) Glucose 130 H (70-99) mg/dL Calcium 8.2 L (8.5-10.1) mg/dL Phosphorus 3.0 (2.6-4.7) mg/dL Magnesium 2.4 (1.8-2.4) mg/dL Total Bilirubin 0.3 (0.2-1.0) mg/dL AST 61 H (15-37) U/L ALT 40 (14-59) U/L Alkaline Phosphatase 81 (46-116) U/L C-Reactive Protein 19.1 H* (<1.0) mg/dL Total Protein 6.0 L (6.4-8.2) g/dl Albumin 2.2 L (3.4-5.0) g/dl Globulin 3.8 gm/dL Albumin/Globulin Ratio 0.6 L (1-2) Procalcitonin 0.27 H ng/mL 05/22/21 Range/Units 05:54 WBC (3.98-10.04) K/mm3 RBC (3.98-5.22) M/mm3 Hgb (11.2-15.7) gm/dl Hct (34.1-44.9) % MCV (79.4-94.8) fl MCH (25.6-32.2) pg MCHC (32.2-35.5) g/dl RDW Std Deviation (36.4-46.3) fL Plt Count (182-369) K/mm3 MPV (9.4-12.3) fl Neut % (Auto) (34.0-71.1) % Lymph % (Auto) (19.3-51.7) % [place] % (Auto) (4.7-12.5) % Eos % (Auto) (0.7-5.8) Baso % (Auto) (0.1-1.2) % Neut # (Auto) (1.56-6.13) K/mm3 Lymph # (Auto) (1.18-3.74) K/mm3 [place] # (Auto) (0.24-0.36) K/mm3 Eos # (Auto) (0.04-0.36) K/mm3 Baso # (Auto) (0.01-0.08) K/mm3 Manual Slide Review D-Dimer, Quantitative 0.48 (0.19-0.50) mg/L Sodium (136-145) mEq/L Potassium (3.5-5.1) mEq/L Chloride (98-107) mEq/L Carbon Dioxide (21-32) mEq/L Anion Gap (5-15) BUN (7-18) mg/dL Creatinine (0.55-1.02) mg/dL Est Cr Clr Drug Dosing mL/min Estimated GFR (MDRD) (>60) mL/min BUN/Creatinine Ratio (14-18) Glucose (70-99) mg/dL Calcium (8.5-10.1) mg/dL Phosphorus (2.6-4.7) mg/dL Magnesium (1.8-2.4) mg/dL Total Bilirubin (0.2-1.0) mg/dL AST (15-37) U/L ALT (14-59) U/L Alkaline Phosphatase (46-116) U/L C-Reactive Protein (<1.0) mg/dL Total Protein (6.4-8.2) g/dl Albumin (3.4-5.0) g/dl Globulin gm/dL Albumin/Globulin Ratio (1-2) Procalcitonin ng/mL Med Orders - Current: Current Medications Acetaminophen (Acetaminophen 325 Mg Tab) 650 mg PO Q4H PRN PRN Reason: Fever Greater Than 101 Last Admin: 05/22/21 01:52 Dose: 650 mg Documented by: Albuterol (Albuterol 0.083% 2.5 Mg/3 Ml Neb Soln) 2.5 mg NEB Q2H PRN PRN Reason: Shortness Of Breath/wheezing Albuterol (Albuterol 6.7 Gm Inhaler) 0 gm INH Q2H PRN PRN Reason: SOB/Wheezing Last Admin: 05/22/21 09:12 Dose: 2 each Documented by: Albuterol/Ipratropium (Albuterol/Ipratropium 3.0-0.5 Mg/3 Ml Neb Soln) 3 ml NEB QIDRT PRN PRN Reason: Shortness Of Breath/wheezing Alprazolam (Alprazolam 1 Mg Tab) 1 mg PO Q8H PRN PRN Reason: Anxiety Baclofen (Baclofen 10 Mg Tab) 20 mg PO QID [facility] Last Admin: 05/22/21 17:03 Dose: 20 mg Documented by: Dexamethasone (Dexamethasone 4 Mg Tab) 6 mg PO DAILY [facility] [place] Stop: 05/29/21 09:01 Last Admin: 05/22/21 08:01 Dose: 6 mg Documented by: Docusate Sodium (Docusate Sodium 100 Mg Cap) 100 mg PO BID [facility] [place] Last Admin: 05/22/21 08:00 Dose: Not Given Documented by: Enoxaparin Sodium (Enoxaparin 40 Mg/0.4 Ml Syringe) 40 mg SUBCUT DAILY [facility] [place] Last Admin: 05/22/21 08:01 Dose: 40 mg Documented by: Famotidine (Famotidine 20 Mg Tab) 20 mg PO BID [facility] [place] Last Admin: 05/22/21 08:01 Dose: 20 mg Documented by: Fluticasone Propionate (Fluticasone Propionate Nasal [place] 16 Gm Bottle) 0 gm NASBOTH DAILY [facility] [place] Last Admin: 05/22/21 08:11 Dose: 1 dose Documented by: Gabapentin (Gabapentin 600 Mg Tab) 600 mg PO QID [facility] [place] Last Admin: 05/22/21 17:04 Dose: 600 mg Documented by: Hydrocortisone (Hydrocortisone 1% Crm 30 Gm Tube) 0 gm TOP TID PRN PRN Reason: Hemorrhoids Last Admin: 05/21/21 14:03 Dose: 30 gm Documented by: Remdesivir 100 mg/ Sodium (Chloride) 250 mls @ 250 mls/hr IV Q24H [facility] [place] Stop: 05/24/21 22:59 Last Admin: 05/21/21 21:01 Dose: 250 mls/hr Documented by: Loperamide HCl (Loperamide 2 Mg Cap) 2 mg PO Q4H PRN PRN Reason: Diarrhea Last Admin: 05/21/21 18:25 Dose: 2 mg Documented by: Magnesium Hydroxide (Magnesium Hydroxide 400 Mg/5 Ml Susp 30 Ml Cup) 30 ml PO Q12H PRN PRN Reason: Constipation Mexiletine HCl (Mexiletine 150 Mg Cap) 150 mg PO TID [facility] [place] Last Admin: 05/22/21 14:54 Dose: 150 mg Documented by: Miscellaneous Information (Remove Patch) 0 ea TRDERM DAILY [facility] [place] Nicotine (Nicotine 14 Mg/24 Hr Patch) 14 mg TRDERM DAILY [facility] [place] Last Admin: 05/22/21 14:10 Dose: Not Given Documented by: Ondansetron HCl (Ondansetron 4 Mg/2 Ml Sdv) 4 mg IV Q6H PRN PRN Reason: Nausea/Vomiting Last Admin: 05/22/21 18:00 Dose: 4 mg Documented by: Ropinirole HCl (Ropinirole 1 Mg Tab) 1 mg PO 1700,2100 [facility] [place] Last Admin: 05/22/21 17:04 Dose: 1 mg Documented by: Sodium Chloride (Sodium Chloride 0.9% 10 Ml Syringe) 10 ml FLUSH ASDIRECTED PRN PRN Reason: Keep Vein Open Last Admin: 05/20/21 21:50 Dose: 10 ml Documented by: Tramadol HCl (Tramadol 50 Mg Tab) 50 mg PO Q6H PRN PRN Reason: Pain Last Admin: 05/22/21 18:23 Dose: 50 mg Documented by: Trazodone HCl (Trazodone 50 Mg Tab) 150 mg PO BEDTIME PRN PRN Reason: Insomnia Last Admin: 05/21/21 20:58 Dose: 150 mg Documented by: Anais Garcia (Anais Garcia Medicated Pads 40/Jar) 1 pad TOP ASDIRECTED PRN PRN Reason: Hemorrhoids Zinc Sulfate (Zinc Sulfate 220 Mg Cap) 220 mg PO DAILY [facility] [place] Last Admin: 05/22/21 08:00 Dose: 220 mg Documented by: Discontinued Medications Acetaminophen (Acetaminophen 325 Mg Tab) 650 mg PO NOW ONE Stop: 05/20/21 23:00 Last Admin: 05/20/21 23:42 Dose: 650 mg Documented by: Baclofen (Baclofen 10 Mg Tab) 20 mg PO ONETIME ONE Stop: 05/20/21 22:59 Last Admin: 05/20/21 23:44 Dose: 20 mg Documented by: Dexamethasone (Dexamethasone 6 Mg Tablet) 6 mg PO ONETIME ONE Stop: 05/20/21 21:51 Last Admin: 05/20/21 22:01 Dose: 6 mg Documented by: Gabapentin (Gabapentin 300 Mg Cap) 600 mg PO ONETIME ONE Stop: 05/20/21 23:00 Last Admin: 05/20/21 23:41 Dose: 600 mg Documented by: Remdesivir 200 mg/ Sodium (Chloride) 250 mls @ 250 mls/hr IV ONETIME ONE Stop: 05/20/21 22:41 Last Admin: 05/20/21 23:40 Dose: 250 mls/hr Documented by: Remdesivir 100 mg/ Sodium (Chloride) 100 mls @ 100 mls/hr IV Q24H [facility] [place] Stop: 05/24/21 22:59 Sodium Phosphate 30 mmole/ (Sodium Chloride) 260 mls @ 86.667 mls/hr IV ONETIME ONE Stop: 05/21/21 12:59 Last Admin: 05/21/21 11:22 Dose: 86.667 mls/hr Documented by: Mexiletine HCl (Mexiletine 150 Mg Cap) 150 mg PO ONETIME ONE Stop: 05/20/21 23:00 Last Admin: 05/20/21 23:45 Dose: 150 mg Documented by: Potassium Chloride (Potassium Chloride 20 Meq Tab.Er) 40 meq PO ONETIME ONE Stop: 05/20/21 22:41 Last Admin: 05/20/21 23:40 Dose: 40 meq Documented by: Ropinirole HCl (Ropinirole 1 Mg Tab) 1 mg PO ONETIME ONE Stop: 05/20/21 22:59 Last Admin: 05/20/21 23:41 Dose: 1 mg Documented by: - Patient Data Lab Results Last 24 hrs: Laboratory Results - last 24 hr 05/21/21 05/22/21 05/22/21 Range/Units 07:04 05:54 05:54 WBC 10.34 H (3.98-10.04) K/mm3 RBC 4.08 (3.98-5.22) M/mm3 Hgb 12.8 (11.2-15.7) gm/dl Hct 39.2 (34.1-44.9) % MCV 96.1 H (79.4-94.8) fl MCH 31.4 (25.6-32.2) pg MCHC 32.7 (32.2-35.5) g/dl RDW Std Deviation 54.5 H (36.4-46.3) fL Plt Count 163 L (182-369) K/mm3 MPV 12.2 (9.4-12.3) fl Neut % (Auto) 81.2 H (34.0-71.1) % Lymph % (Auto) 12.5 L (19.3-51.7) % [place] % (Auto) 5.8 (4.7-12.5) % Eos % (Auto) 0 L (0.7-5.8) Baso % (Auto) 0.1 (0.1-1.2) % Neut # (Auto) 8.40 H (1.56-6.13) K/mm3 Lymph # (Auto) 1.29 (1.18-3.74) K/mm3 [place] # (Auto) 0.60 H (0.24-0.36) K/mm3 Eos # (Auto) 0.00 L (0.04-0.36) K/mm3 Baso # (Auto) 0.01 (0.01-0.08) K/mm3 Manual Slide Review Normal smear D-Dimer, Quantitative (0.19-0.50) mg/L Sodium 138 (136-145) mEq/L Potassium 4.3 (3.5-5.1) mEq/L Chloride 102 (98-107) mEq/L Carbon Dioxide 28 (21-32) mEq/L Anion Gap 12.3 (5-15) BUN 19 H (7-18) mg/dL Creatinine 0.8 (0.55-1.02) mg/dL Est Cr Clr Drug Dosing 81.18 mL/min Estimated GFR (MDRD) > 60 (>60) mL/min BUN/Creatinine Ratio 23.8 H (14-18) Glucose 130 H (70-99) mg/dL Calcium 8.2 L (8.5-10.1) mg/dL Phosphorus 3.0 (2.6-4.7) mg/dL Magnesium 2.4 (1.8-2.4) mg/dL Total Bilirubin 0.3 (0.2-1.0) mg/dL AST 61 H (15-37) U/L ALT 40 (14-59) U/L Alkaline Phosphatase 81 (46-116) U/L C-Reactive Protein 19.1 H* (<1.0) mg/dL Total Protein 6.0 L (6.4-8.2) g/dl Albumin 2.2 L (3.4-5.0) g/dl Globulin 3.8 gm/dL Albumin/Globulin Ratio 0.6 L (1-2) Procalcitonin 0.27 H ng/mL 05/22/21 Range/Units 05:54 WBC (3.98-10.04) K/mm3 RBC (3.98-5.22) M/mm3 Hgb (11.2-15.7) gm/dl Hct (34.1-44.9) % MCV (79.4-94.8) fl MCH (25.6-32.2) pg MCHC (32.2-35.5) g/dl RDW Std Deviation (36.4-46.3) fL Plt Count (182-369) K/mm3 MPV (9.4-12.3) fl Neut % (Auto) (34.0-71.1) % Lymph % (Auto) (19.3-51.7) % [place] % (Auto) (4.7-12.5) % Eos % (Auto) (0.7-5.8) Baso % (Auto) (0.1-1.2) % Neut # (Auto) (1.56-6.13) K/mm3 Lymph # (Auto) (1.18-3.74) K/mm3 [place] # (Auto) (0.24-0.36) K/mm3 Eos # (Auto) (0.04-0.36) K/mm3 Baso # (Auto) (0.01-0.08) K/mm3 Manual Slide Review D-Dimer, Quantitative 0.48 (0.19-0.50) mg/L Sodium (136-145) mEq/L Potassium (3.5-5.1) mEq/L Chloride (98-107) mEq/L Carbon Dioxide (21-32) mEq/L Anion Gap (5-15) BUN (7-18) mg/dL Creatinine (0.55-1.02) mg/dL Est Cr Clr Drug Dosing mL/min Estimated GFR (MDRD) (>60) mL/min BUN/Creatinine Ratio (14-18) Glucose (70-99) mg/dL Calcium (8.5-10.1) mg/dL Phosphorus (2.6-4.7) mg/dL Magnesium (1.8-2.4) mg/dL Total Bilirubin (0.2-1.0) mg/dL AST (15-37) U/L ALT (14-59) U/L Alkaline Phosphatase (46-116) U/L C-Reactive Protein (<1.0) mg/dL Total Protein (6.4-8.2) g/dl Albumin (3.4-5.0) g/dl Globulin gm/dL Albumin/Globulin Ratio (1-2) Procalcitonin ng/mL Result Diagrams: 05/22/21 05:54 05/22/21 05:54 Sepsis Event Note - Focused Exam Vital Signs: Vital Signs Temp Pulse Resp BP Pulse Ox Pulse Ox 05/22/21 16:00 96.8 F L 74 18 121/75 94 L 05/22/21 12:00 96.9 F 77 18 117/69 92 L 05/22/21 09:13 95 05/22/21 08:00 97.0 F 77 18 113/74 93 L 05/22/21 06:40 92 L - My Orders Last 24 Hours: My Active Orders 05/21/21 17:29 Loperamide [Imodium] 2 mg PO Q4H PRN 05/21/21 20:23 traMADol [Ultram] 50 mg PO Q6H PRN 05/21/21 20:30 traZODone 150 mg PO BEDTIME PRN - Plan Plan:: Case discussed in full. Agree with evaluation, assessment and plan. -Parag Mcelroy Jr., DO
[2021-05-22] MEDS: Ondansetron 4 MG/2 ML SDV IV PRN ×2 (07:33→18:00)
[2021-05-22] MEDS: traMADol 50 MG Tab PO PRN ×2 (07:36→18:23)
[2021-05-22] MEDS: Docusate Sodium 100 MG Cap PO SCH ×2 (08:00→22:06)
[2021-05-22] MEDS: Zinc Sulfate 220 MG Cap PO SCH (08:00)
[2021-05-22] MEDS: Baclofen 10 MG Tab PO SCH ×4 (08:00→22:00)
[2021-05-22] MEDS: Dexamethasone 4 MG Tab PO SCH (08:01)
[2021-05-22] MEDS: Famotidine 20 MG Tab PO SCH ×2 (08:01→21:59)
[2021-05-22] MEDS: Mexiletine 150 MG Cap PO SCH ×3 (08:01→21:59)
[2021-05-22] MEDS: Enoxaparin 40 MG/0.4 ML Syringe SUBCUT SCH (08:01)
[2021-05-22] MEDS: Gabapentin 600 MG Tab PO SCH ×4 (08:01→21:59)
[2021-05-22] MEDS: Fluticasone Propionate Nasal Spray 16 GM Bottle NASBOTH SCH (08:11)
[2021-05-22] MEDS: Albuterol 6.7 GM Inhaler INH PRN (09:12)
[2021-05-22] MEDS: Nicotine 14 MG/24 Hr Patch TRDERM SCH (14:10)
[2021-05-22] MEDS: rOPINIRole 1 MG Tab PO SCH ×2 (17:04→22:03)
[2021-05-22] MEDS: traZODone 50 MG Tab PO PRN (22:07)
[2021-05-22] MEDS: REMDESIVIR 100 MG in Sodium Chloride 0.9% 250 ML IV SCH (22:07)
[2021-05-23] MEDS: Albuterol 6.7 GM Inhaler INH PRN ×3 (06:04→21:49)
--- NOTE | 2021-05-23 07:39 | PCM.PN ---
<Zenon Low - Last Filed: 05/23/21 10:03> - General Info Date of Service: 05/23/21 Admission Dx/Problem (Free Text): Admission Diagnosis/Problem Admission Diagnosis/Problem Hypoxia Functional Status: Reports: Pain Controlled, Tolerating Diet, Ambulating, Urinating, Incentive Spirometry, Other (Acapella). Denies: New Symptoms - Review of Systems General: Reports: Weakness (Greatly improved). Denies: Fever, Fatigue, Malaise, Chills HEENT: Reports: No Symptoms. Denies: Headaches, Sore Throat Pulmonary: Reports: No Symptoms, Shortness of Breath, Cough, Sputum. Denies: Pleuritic Chest Pain, Wheezing Cardiovascular: Reports: No Symptoms, Dyspnea on Exertion. Denies: Chest Pain, Palpitations Gastrointestinal: Reports: No Symptoms. Denies: Abdominal Pain, Constipation, Diarrhea, Nausea Genitourinary: Reports: No Symptoms Musculoskeletal: Reports: Back Pain (Chronic), Other (Generalized myalgias) Skin: Reports: No Symptoms. Denies: Cyanosis Neurological: Reports: No Symptoms. Denies: Confusion, Dizziness, Headache, Numbness, Pre-Existing Deficit, Seizure, Syncope, Tingling, Trouble Speaking, Difficulty Walking, Weakness, Gait Disturbance Psychiatric: Reports: No Symptoms - Patient Data Vitals - Most Recent: Last Vital Signs Temp 98.8 F 05/23/21 04:00 Pulse 78 05/23/21 04:00 Resp 20 05/23/21 04:00 BP 134/79 05/23/21 04:00 Pulse Ox 92 L 05/23/21 07:00 Weight - Most Recent: 172 lb 6.4 oz I&O - Last 24 Hours: Intake & Output 05/22/21 05/23/21 05/23/21 22:59 06:59 14:59 Intake Total 700 730 Output Total 450 Balance 700 280 Lab Results Last 24 Hours: Laboratory Results - last 24 hr 05/22/21 05/23/21 05/23/21 Range/Units 05:54 05:46 05:46 WBC 14.90 H (3.98-10.04) K/mm3 RBC 4.39 (3.98-5.22) M/mm3 Hgb 13.3 (11.2-15.7) gm/dl Hct 42.6 (34.1-44.9) % MCV 97.0 H (79.4-94.8) fl MCH 30.3 (25.6-32.2) pg MCHC 31.2 L (32.2-35.5) g/dl RDW Std Deviation 55.3 H (36.4-46.3) fL Plt Count 181 L (182-369) K/mm3 MPV 11.2 (9.4-12.3) fl Neut % (Auto) 81.8 H (34.0-71.1) % Lymph % (Auto) 10.9 L (19.3-51.7) % [place] % (Auto) 6.5 (4.7-12.5) % Eos % (Auto) 0 L (0.7-5.8) Baso % (Auto) 0.3 (0.1-1.2) % Neut # (Auto) 12.18 H (1.56-6.13) K/mm3 Lymph # (Auto) 1.63 (1.18-3.74) K/mm3 [place] # (Auto) 0.97 H (0.24-0.36) K/mm3 Eos # (Auto) 0.00 L (0.04-0.36) K/mm3 Baso # (Auto) 0.04 (0.01-0.08) K/mm3 Manual Slide Review Normal smear D-Dimer, Quantitative 0.48 (0.19-0.50) mg/L Sodium 140 (136-145) mEq/L Potassium 4.7 (3.5-5.1) mEq/L Chloride 102 (98-107) mEq/L Carbon Dioxide 31 (21-32) mEq/L Anion Gap 11.7 (5-15) BUN 20 H (7-18) mg/dL Creatinine 0.8 (0.55-1.02) mg/dL Est Cr Clr Drug Dosing 81.28 mL/min Estimated GFR (MDRD) > 60 (>60) mL/min BUN/Creatinine Ratio 25.0 H (14-18) Glucose 142 H (70-99) mg/dL Calcium 8.5 (8.5-10.1) mg/dL Magnesium 2.3 (1.8-2.4) mg/dL Total Bilirubin 0.2 (0.2-1.0) mg/dL AST 34 (15-37) U/L ALT 36 (14-59) U/L Alkaline Phosphatase 86 (46-116) U/L C-Reactive Protein 9.4 H* (<1.0) mg/dL Total Protein 5.6 L (6.4-8.2) g/dl Albumin 2.3 L (3.4-5.0) g/dl Globulin 3.3 gm/dL Albumin/Globulin Ratio 0.7 L (1-2) Med Orders - Current: Current Medications Acetaminophen (Acetaminophen 325 Mg Tab) 650 mg PO Q4H PRN PRN Reason: Fever Greater Than 101 Last Admin: 05/22/21 22:46 Dose: 650 mg Documented by: Albuterol (Albuterol 0.083% 2.5 Mg/3 Ml Neb Soln) 2.5 mg NEB Q2H PRN PRN Reason: Shortness Of Breath/wheezing Albuterol (Albuterol 6.7 Gm Inhaler) 0 gm INH Q2H PRN PRN Reason: SOB/Wheezing Last Admin: 05/23/21 06:04 Dose: 2 each Documented by: Albuterol/Ipratropium (Albuterol/Ipratropium 3.0-0.5 Mg/3 Ml Neb Soln) 3 ml NEB QIDRT PRN PRN Reason: Shortness Of Breath/wheezing Alprazolam (Alprazolam 1 Mg Tab) 1 mg PO Q8H PRN PRN Reason: Anxiety Baclofen (Baclofen 10 Mg Tab) 20 mg PO QID [facility] Last Admin: 05/22/21 22:00 Dose: 20 mg Documented by: Dexamethasone (Dexamethasone 4 Mg Tab) 6 mg PO DAILY [facility] Stop: 05/29/21 09:01 Last Admin: 05/22/21 08:01 Dose: 6 mg Documented by: Docusate Sodium (Docusate Sodium 100 Mg Cap) 100 mg PO BID [facility] Last Admin: 05/22/21 22:06 Dose: 100 mg Documented by: Enoxaparin Sodium (Enoxaparin 40 Mg/0.4 Ml Syringe) 40 mg SUBCUT DAILY [facility] Last Admin: 05/22/21 08:01 Dose: 40 mg Documented by: Famotidine (Famotidine 20 Mg Tab) 20 mg PO BID [facility] Last Admin: 05/22/21 21:59 Dose: 20 mg Documented by: Fluticasone Propionate (Fluticasone Propionate Nasal [place] 16 Gm Bottle) 0 gm NASBOTH DAILY [facility] Last Admin: 05/22/21 08:11 Dose: 1 dose Documented by: Gabapentin (Gabapentin 600 Mg Tab) 600 mg PO QID [facility] Last Admin: 05/22/21 21:59 Dose: 600 mg Documented by: Hydrocortisone (Hydrocortisone 1% Crm 30 Gm Tube) 0 gm TOP TID PRN PRN Reason: Hemorrhoids Last Admin: 05/21/21 14:03 Dose: 30 gm Documented by: Remdesivir 100 mg/ Sodium (Chloride) 250 mls @ 250 mls/hr IV Q24H [facility] Stop: 05/24/21 22:59 Last Admin: 05/22/21 22:07 Dose: 250 mls/hr Documented by: Loperamide HCl (Loperamide 2 Mg Cap) 2 mg PO Q4H PRN PRN Reason: Diarrhea Last Admin: 05/21/21 18:25 Dose: 2 mg Documented by: Magnesium Hydroxide (Magnesium Hydroxide 400 Mg/5 Ml Susp 30 Ml Cup) 30 ml PO Q12H PRN PRN Reason: Constipation Mexiletine HCl (Mexiletine 150 Mg Cap) 150 mg PO TID [facility] Last Admin: 05/22/21 21:59 Dose: 150 mg Documented by: Miscellaneous Information (Remove Patch) 0 ea TRDERM DAILY [facility] Nicotine (Nicotine 14 Mg/24 Hr Patch) 14 mg TRDERM DAILY [facility] Last Admin: 05/22/21 14:10 Dose: Not Given Documented by: Ondansetron HCl (Ondansetron 4 Mg/2 Ml Sdv) 4 mg IV Q6H PRN PRN Reason: Nausea/Vomiting Last Admin: 05/22/21 18:00 Dose: 4 mg Documented by: Ropinirole HCl (Ropinirole 1 Mg Tab) 1 mg PO 1700,2100 [facility] Last Admin: 05/22/21 22:03 Dose: 1 mg Documented by: Sodium Chloride (Sodium Chloride 0.9% 10 Ml Syringe) 10 ml FLUSH ASDIRECTED PRN PRN Reason: Keep Vein Open Last Admin: 05/20/21 21:50 Dose: 10 ml Documented by: Tramadol HCl (Tramadol 50 Mg Tab) 50 mg PO Q6H PRN PRN Reason: Pain Last Admin: 05/22/21 18:23 Dose: 50 mg Documented by: Trazodone HCl (Trazodone 50 Mg Tab) 150 mg PO BEDTIME PRN PRN Reason: Insomnia Last Admin: 05/22/21 22:07 Dose: 150 mg Documented by: Anais Garcia (Anais Garcia Medicated Pads 40/Jar) 1 pad TOP ASDIRECTED PRN PRN Reason: Hemorrhoids Zinc Sulfate (Zinc Sulfate 220 Mg Cap) 220 mg PO DAILY [facility] Last Admin: 05/22/21 08:00 Dose: 220 mg Documented by: Discontinued Medications Acetaminophen (Acetaminophen 325 Mg Tab) 650 mg PO NOW ONE Stop: 05/20/21 23:00 Last Admin: 05/20/21 23:42 Dose: 650 mg Documented by: Baclofen (Baclofen 10 Mg Tab) 20 mg PO ONETIME ONE Stop: 05/20/21 22:59 Last Admin: 05/20/21 23:44 Dose: 20 mg Documented by: Dexamethasone (Dexamethasone 6 Mg Tablet) 6 mg PO ONETIME ONE Stop: 05/20/21 21:51 Last Admin: 05/20/21 22:01 Dose: 6 mg Documented by: Gabapentin (Gabapentin 300 Mg Cap) 600 mg PO ONETIME ONE Stop: 05/20/21 23:00 Last Admin: 05/20/21 23:41 Dose: 600 mg Documented by: Remdesivir 200 mg/ Sodium (Chloride) 250 mls @ 250 mls/hr IV ONETIME ONE Stop: 05/20/21 22:41 Last Admin: 05/20/21 23:40 Dose: 250 mls/hr Documented by: Remdesivir 100 mg/ Sodium (Chloride) 100 mls @ 100 mls/hr IV Q24H [facility] Stop: 05/24/21 22:59 Sodium Phosphate 30 mmole/ (Sodium Chloride) 260 mls @ 86.667 mls/hr IV ONETIME ONE Stop: 05/21/21 12:59 Last Admin: 05/21/21 11:22 Dose: 86.667 mls/hr Documented by: Mexiletine HCl (Mexiletine 150 Mg Cap) 150 mg PO ONETIME ONE Stop: 05/20/21 23:00 Last Admin: 05/20/21 23:45 Dose: 150 mg Documented by: Potassium Chloride (Potassium Chloride 20 Meq Tab.Er) 40 meq PO ONETIME ONE Stop: 05/20/21 22:41 Last Admin: 05/20/21 23:40 Dose: 40 meq Documented by: Ropinirole HCl (Ropinirole 1 Mg Tab) 1 mg PO ONETIME ONE Stop: 05/20/21 22:59 Last Admin: 05/20/21 23:41 Dose: 1 mg Documented by: - Exam Quality Assessment: Supplemental Oxygen (1 L via nasal cannula), DVT Prophylaxis. No: Urine Catheter General: Alert, Oriented, Cooperative, No Acute Distress HEENT: Pupils Equal, Pupils Reactive, Mucous Membr. Moist/[place] Neck: Supple, Trachea Midline Lungs: Normal Respiratory Effort, Decreased Breath Sounds, Crackles Cardiovascular: Regular Rate, Regular Rhythm GI/Abdominal Exam: Normal Bowel Sounds, Soft, Non-Tender, No Distention (Female) Exam: Deferred Back Exam: Normal Inspection, Full Range of Motion Extremities: Normal Range of Motion, Non-Tender, No Pedal Edema, Normal Capillary Refill, Other (Cast on lower extent right extremity with good sensation, movement, and toes are pink) Peripheral Pulses: 2+: Radial (L), Radial (R), Dorsalis Pedis (L) Skin: Warm, Dry, Intact Neurological: No New Focal Deficit Psy/Mental Status: Alert - Patient Data Lab Results Last 24 hrs: Laboratory Results - last 24 hr 05/22/21 05/23/21 05/23/21 Range/Units 05:54 05:46 05:46 WBC 14.90 H (3.98-10.04) K/mm3 RBC 4.39 (3.98-5.22) M/mm3 Hgb 13.3 (11.2-15.7) gm/dl Hct 42.6 (34.1-44.9) % MCV 97.0 H (79.4-94.8) fl MCH 30.3 (25.6-32.2) pg MCHC 31.2 L (32.2-35.5) g/dl RDW Std Deviation 55.3 H (36.4-46.3) fL Plt Count 181 L (182-369) K/mm3 MPV 11.2 (9.4-12.3) fl Neut % (Auto) 81.8 H (34.0-71.1) % Lymph % (Auto) 10.9 L (19.3-51.7) % [place] % (Auto) 6.5 (4.7-12.5) % Eos % (Auto) 0 L (0.7-5.8) Baso % (Auto) 0.3 (0.1-1.2) % Neut # (Auto) 12.18 H (1.56-6.13) K/mm3 Lymph # (Auto) 1.63 (1.18-3.74) K/mm3 [place] # (Auto) 0.97 H (0.24-0.36) K/mm3 Eos # (Auto) 0.00 L (0.04-0.36) K/mm3 Baso # (Auto) 0.04 (0.01-0.08) K/mm3 Manual Slide Review Normal smear D-Dimer, Quantitative 0.48 (0.19-0.50) mg/L Sodium 140 (136-145) mEq/L Potassium 4.7 (3.5-5.1) mEq/L Chloride 102 (98-107) mEq/L Carbon Dioxide 31 (21-32) mEq/L Anion Gap 11.7 (5-15) BUN 20 H (7-18) mg/dL Creatinine 0.8 (0.55-1.02) mg/dL Est Cr Clr Drug Dosing 81.28 mL/min Estimated GFR (MDRD) > 60 (>60) mL/min BUN/Creatinine Ratio 25.0 H (14-18) Glucose 142 H (70-99) mg/dL Calcium 8.5 (8.5-10.1) mg/dL Magnesium 2.3 (1.8-2.4) mg/dL Total Bilirubin 0.2 (0.2-1.0) mg/dL AST 34 (15-37) U/L ALT 36 (14-59) U/L Alkaline Phosphatase 86 (46-116) U/L C-Reactive Protein 9.4 H* (<1.0) mg/dL Total Protein 5.6 L (6.4-8.2) g/dl Albumin 2.3 L (3.4-5.0) g/dl Globulin 3.3 gm/dL Albumin/Globulin Ratio 0.7 L (1-2) Result Diagrams: 05/23/21 05:46 05/23/21 05:46 Sepsis Event Note - Evaluation Sepsis Screening Result: Sepsis Risk - Focused Exam Vital Signs: Vital Signs Temp Pulse Resp BP Pulse Ox Pulse Ox 05/23/21 07:00 92 L 05/23/21 06:05 94 L 05/23/21 04:00 98.8 F 78 20 134/79 92 L 05/23/21 00:00 98.9 F 67 22 H 130/78 94 L 05/22/21 20:00 98.0 F 78 24 H 114/78 93 L - Problem List & Annotations (1) Hypokalemia SNOMED Code(s): 47272256 Code(s): E87.6 - HYPOKALEMIA Status: Resolved Priority: High Current Visit: Yes (2) Pneumonia due to COVID-19 virus SNOMED Code(s): 664916905530848588 Code(s): U07.1 - COVID-19; J12.82 - PNEUMONIA DUE TO CORONAVIRUS DISEASE 2019 Status: Acute Priority: High Current Visit: Yes (3) Thrombocytopenia SNOMED Code(s): 609369417 Code(s): D69.6 - THROMBOCYTOPENIA, UNSPECIFIED Status: Acute Priority: Medium Current Visit: Yes (4) ANDREAS (acute kidney injury) SNOMED Code(s): 25247361, 94268266 Code(s): N17.9 - ACUTE KIDNEY FAILURE, UNSPECIFIED Status: Resolved Priority: High Current Visit: Yes (5) Acute respiratory failure with hypoxia SNOMED Code(s): 99079313, 331771825 Code(s): J96.01 - ACUTE RESPIRATORY FAILURE WITH HYPOXIA Status: Acute Priority: High Current Visit: Yes (6) History of multiple pulmonary nodules SNOMED Code(s): 477560918 Code(s): Z87.898 - PERSONAL HISTORY OF OTHER SPECIFIED CONDITIONS Status: Chronic Priority: Low Current Visit: No (7) Nocturnal oxygen desaturation SNOMED Code(s): 521201400 Code(s): G47.34 - IDIO SLEEP RELATED NONOBSTRUCTIVE ALVEOLAR HYPOVENTILATION Status: Chronic Priority: Medium Current Visit: No (8) GERD (gastroesophageal reflux disease) SNOMED Code(s): 515110439 Code(s): K21.9 - GASTRO-ESOPHAGEAL REFLUX DISEASE WITHOUT ESOPHAGITIS Status: Chronic Priority: Low Current Visit: No Qualifiers: Esophagitis presence: esophagitis presence not specified Qualified Code(s): K21.9 - Gastro-esophageal reflux disease without esophagitis (9) IBS (irritable bowel syndrome) SNOMED Code(s): 98985436 Code(s): K58.9 - IRRITABLE BOWEL SYNDROME WITHOUT DIARRHEA Status: Chronic Priority: Low Current Visit: No Qualifiers: Irritable bowel syndrome type: unspecified Qualified Code(s): K58.9 - Irritable bowel syndrome without diarrhea (10) Endometriosis SNOMED Code(s): 698456542 Code(s): N80.9 - ENDOMETRIOSIS, UNSPECIFIED Status: Chronic Priority: Low Current Visit: No (11) Chronic back pain SNOMED Code(s): 379643755 Code(s): M54.9 - DORSALGIA, UNSPECIFIED; G89.29 - OTHER CHRONIC PAIN Status: Chronic Priority: Low Current Visit: No Qualifiers: Back pain location: low back pain Back pain laterality: midline Sciatica presence: without sciatica Qualified Code(s): M54.50 - Low back pain, unspecified; G89.29 - Other chronic pain (12) Fibromyalgia SNOMED Code(s): 503694262 Code(s): M79.7 - FIBROMYALGIA Status: Chronic Priority: Low Current Visit: No (13) Rheumatoid arthritis SNOMED Code(s): 41365074 Code(s): M06.9 - RHEUMATOID ARTHRITIS, UNSPECIFIED Status: Chronic Priority: Low Current Visit: No Qualifiers: Rheumatoid arthritis location: unspecified site Rheumatoid factor presence: unspecified presence Qualified Code(s): M06.9 - Rheumatoid arthritis, unspecified (14) RLS (restless legs syndrome) SNOMED Code(s): 68904486 Code(s): G25.81 - RESTLESS LEGS SYNDROME Status: Chronic Priority: Low Current Visit: No (15) Lumbar degenerative disc disease SNOMED Code(s): 48592735 Code(s): M51.36 - OTHER INTERVERTEBRAL DISC DEGENERATION, LUMBAR REGION Status: Chronic Priority: Low Current Visit: No (16) Anxiety SNOMED Code(s): 18535948 Code(s): F41.9 - ANXIETY DISORDER, UNSPECIFIED Status: Chronic Priority: Medium Current Visit: Yes (17) PTSD (post-traumatic stress disorder) SNOMED Code(s): 07791155 Code(s): F43.10 - POST-TRAUMATIC STRESS DISORDER, UNSPECIFIED Status: Chronic Priority: Low Current Visit: No (18) History of lumbar spinal fusion SNOMED Code(s): 53304064036515 Code(s): Z98.1 - ARTHRODESIS STATUS Status: Chronic Priority: Low Current Visit: No (19) Smoker SNOMED Code(s): 47022653 Code(s): F17.200 - NICOTINE DEPENDENCE, UNSPECIFIED, UNCOMPLICATED Status: Chronic Priority: Medium Current Visit: Yes (20) Chronic pain syndrome SNOMED Code(s): 786034783 Code(s): G89.4 - CHRONIC PAIN SYNDROME Status: Chronic Priority: Medium Current Visit: Yes (21) Hypoalbuminemia SNOMED Code(s): 164906623 Code(s): E88.09 - OTH DISORDERS OF PLASMA-PROTEIN METABOLISM, NEC Status: Acute Priority: Medium Current Visit: Yes (22) Hypophosphatemia SNOMED Code(s): 5509744 Code(s): E83.39 - OTHER DISORDERS OF PHOSPHORUS METABOLISM Status: Resolved Priority: Medium Current Visit: Yes (23) Elevated C-reactive protein (CRP) SNOMED Code(s): 879203426859620 Code(s): R79.82 - ELEVATED C-REACTIVE PROTEIN (CRP) Status: Acute Priority: Medium Current Visit: Yes - Problem List Review Problem List Initiated/Reviewed/Updated: Yes - My Orders Last 24 Hours: My Active Orders 05/22/21 09:00 Nicotine [Habitrol] 14 mg TRDERM DAILY 05/23/21 09:00 Remove Patch 0 ea TRDERM DAILY 05/24/21 05:11 C-REACTIVE PROTEIN [CHEM] AM CBC WITH AUTO DIFF [HEME] AM COMPREHENSIVE METABOLIC PN,CMP [CHEM] AM D Dimer [D-DIMER QUANTITATIVE] [COAG] Q48H MAGNESIUM [CHEM] AM 05/25/21 05:11 C-REACTIVE PROTEIN [CHEM] AM CBC WITH AUTO DIFF [HEME] AM COMPREHENSIVE METABOLIC PN,CMP [CHEM] AM MAGNESIUM [CHEM] AM 05/26/21 05:11 D Dimer [D-DIMER QUANTITATIVE] [COAG] Q48H - Assessment Assessment:: 05/22/2021 50-year-old female admitted to the floor for treatment of her COVID-19 pneumonia. Overall she reports she is feeling better. She has had some concerns about her home medication and the timing of administration being different than when she takes it at home. Nursing instructed to discuss this with pharmacy and be sure we match up with when she takes them normally. She is down to 2 L of oxygen. Lung sounds have improved. She continues with her cast on her right lower extremity. Labs today show WBC of 10.34 which is likely steroid related. Hemoglobin 12.8. Platelet 163,000 which is improved. Neutrophils are elevated at 82.1. Smear is normal. D-dimer is 0.48. Sodium 138. Potassium 4.3. Chloride 102. Carbon dioxide 28. Anion gap is 12.3. BUN is 19. Creatinine 0.8. GFR greater than 60. Glucose 130. Calcium 8.2. Phosphorus is 3.0. Magnesium 2.4. Total bilirubin 0.3. AST 61, ALT 40, alkaline phosphatase 81. CRP is 19.1. Protein is 6.0. Albumin is 2.2. Procalcitonin obtained yesterday was 0.27. We will continue current treatment plan with dexamethasone 6 mg daily and remdesivir. She continues to utilize her incentive spirometry, Acapella, and prone frequently. Likely length of stay will be 4 more days pending progress and completion of remdesivir. 05/23/2021 50-year-old female admitted the floor for COVID-19 pneumonia treatment. Today she is a bit frustrated as she reports she takes her medications different than how we have been giving them. She states this was not addressed yesterday. Discussed this with nursing and pharmacy and they will follow up with patient and change schedule accordingly. She is down to 1 L of oxygen and lung sounds continue to improve. Cast remains on right lower extremity. WBC is up to 14.90, likely steroid related. Hemoglobin is 13.3. Platelet 181,000. Neutrophils are 81.8%. Smear is normal. Sodium is 140. Potassium 4.7. Chloride 102. Carbon dioxide 31. BUN is 20. Creatinine 0.8. GFR greater than 60. Glucose is 142. Calcium 8.5. Magnesium is 2.3. Bilirubin 0.2. AST is 34, ALT 36, alkaline phosphatase 86. CRP is down to 9.4. Human is 2.3. Protein is 5.6. We will continue with current treatment plan including remdesivir and dexamethasone. Likely discharge 1 to 3 days pending oxygen wean and improvement. - Plan Plan:: Pneumonia due to COVID-19 virus Acute respiratory failure with hypoxia History of multiple pulmonary nodules Nocturnal oxygen desaturation Elevated CRP * Oxygen as needed with goal saturations of 87 to 95% * Dexamethasone 6 mg for 10 days * Remdesivir for 5 days * RT consultation * Prone whenever able * IS/Acapella * Zinc supplementation * Famotidine 20 mg twice daily * Daily labs * Every 48 hour D-dimer * Lovenox 40 mg daily * As needed DuoNebs * As needed albuterol nebulizer * As needed albuterol MDI * Ambulate around room * Airborne/contact precautions * Telemetry * Continuous pulse oximetry Thrombocytopenia, improving * Likely secondary to above * Monitor labs * May need to discontinue Lovenox if worsening Hypophosphatemia. Resolved Hypoalbuminemia * Cylinder [employer]amer consultation * Monitor * Likely worsened by COVID-19 and poor intake Hypokalemia, Resolved * Supplemented in ED * Monitor labs ANDREAS (acute kidney injury), Resolved * Monitor labs * Caution with IV fluids due to COVID-19 pneumonia Smoker * Patient currently refusing nicotine patch * Cessation counseling * Offer nicotine patches at discharge * Nursing may apply 14 mg nicotine patch as needed if patient requests GERD (gastroesophageal reflux disease) IBS (irritable bowel syndrome) * No acute concerns * Famotidine 20 mg twice daily as above Endometriosis * No acute concerns Chronic back pain Fibromyalgia Rheumatoid arthritis RLS (restless legs syndrome) Lumbar degenerative disc disease History of lumbar spinal fusion Chronic pain syndrome * Pain medications as ordered * Home medications as ordered * Consult PT * No acute concerns Anxiety PTSD (post-traumatic stress disorder) * No acute concerns * Home medications as ordered Code status: Full code PCP: Dr. Kothari VTE prophylaxis: Lovenox Disposition: Patient admitted to ICU as MedSurg overflow with telemetry for treatment of COVID-19 pneumonia. Length of stay likely 4 to 5 days pending progress and improvements with oxygen requirements. <Eliseo Kate Jr - Last Filed: 05/23/21 11:04> - Patient Data Vitals - Most Recent: Last Vital Signs Temp 98.8 F 05/23/21 04:00 Pulse 78 05/23/21 04:00 Resp 20 05/23/21 04:00 BP 134/79 05/23/21 04:00 Pulse Ox 92 L 05/23/21 09:11 I&O - Last 24 Hours: Intake & Output 12/03/0405/23/21 05/23/21 22:59 06:59 14:59 Intake Total 700 730 Output Total 450 Balance 700 280 Lab Results Last 24 Hours: Laboratory Results - last 24 hr 05/23/21 05/23/21 Range/Units 05:46 05:46 WBC 14.90 H (3.98-10.04) K/mm3 RBC 4.39 (3.98-5.22) M/mm3 Hgb 13.3 (11.2-15.7) gm/dl Hct 42.6 (34.1-44.9) % MCV 97.0 H (79.4-94.8) fl MCH 30.3 (25.6-32.2) pg MCHC 31.2 L (32.2-35.5) g/dl RDW Std Deviation 55.3 H (36.4-46.3) fL Plt Count 181 L (182-369) K/mm3 MPV 11.2 (9.4-12.3) fl Neut % (Auto) 81.8 H (34.0-71.1) % Lymph % (Auto) 10.9 L (19.3-51.7) % [place] % (Auto) 6.5 (4.7-12.5) % Eos % (Auto) 0 L (0.7-5.8) Baso % (Auto) 0.3 (0.1-1.2) % Neut # (Auto) 12.18 H (1.56-6.13) K/mm3 Lymph # (Auto) 1.63 (1.18-3.74) K/mm3 [place] # (Auto) 0.97 H (0.24-0.36) K/mm3 Eos # (Auto) 0.00 L (0.04-0.36) K/mm3 Baso # (Auto) 0.04 (0.01-0.08) K/mm3 Manual Slide Review Normal smear Sodium 140 (136-145) mEq/L Potassium 4.7 (3.5-5.1) mEq/L Chloride 102 (98-107) mEq/L Carbon Dioxide 31 (21-32) mEq/L Anion Gap 11.7 (5-15) BUN 20 H (7-18) mg/dL Creatinine 0.8 (0.55-1.02) mg/dL Est Cr Clr Drug Dosing 81.28 mL/min Estimated GFR (MDRD) > 60 (>60) mL/min BUN/Creatinine Ratio 25.0 H (14-18) Glucose 142 H (70-99) mg/dL Calcium 8.5 (8.5-10.1) mg/dL Magnesium 2.3 (1.8-2.4) mg/dL Total Bilirubin 0.2 (0.2-1.0) mg/dL AST 34 (15-37) U/L ALT 36 (14-59) U/L Alkaline Phosphatase 86 (46-116) U/L C-Reactive Protein 9.4 H* (<1.0) mg/dL Total Protein 5.6 L (6.4-8.2) g/dl Albumin 2.3 L (3.4-5.0) g/dl Globulin 3.3 gm/dL Albumin/Globulin Ratio 0.7 L (1-2) Med Orders - Current: Current Medications Acetaminophen (Acetaminophen 325 Mg Tab) 650 mg PO Q4H PRN PRN Reason: Fever Greater Than 101 Last Admin: 05/22/21 22:46 Dose: 650 mg Documented by: Albuterol (Albuterol 0.083% 2.5 Mg/3 Ml Neb Soln) 2.5 mg NEB Q2H PRN PRN Reason: Shortness Of Breath/wheezing Albuterol (Albuterol 6.7 Gm Inhaler) 0 gm INH Q2H PRN PRN Reason: SOB/Wheezing Last Admin: 05/23/21 09:11 Dose: 2 each Documented by: Albuterol/Ipratropium (Albuterol/Ipratropium 3.0-0.5 Mg/3 Ml Neb Soln) 3 ml NEB QIDRT PRN PRN Reason: Shortness Of Breath/wheezing Alprazolam (Alprazolam 1 Mg Tab) 1 mg PO Q8H PRN PRN Reason: Anxiety Baclofen (Baclofen 10 Mg Tab) 20 mg PO 0600,1200,1800,2100 [facility] Dexamethasone (Dexamethasone 4 Mg Tab) 6 mg PO DAILY [facility] Stop: 05/29/21 09:01 Last Admin: 05/23/21 08:25 Dose: 6 mg Documented by: Docusate Sodium (Docusate Sodium 100 Mg Cap) 100 mg PO BID [facility] Last Admin: 05/23/21 08:25 Dose: 100 mg Documented by: Enoxaparin Sodium (Enoxaparin 40 Mg/0.4 Ml Syringe) 40 mg SUBCUT DAILY [facility] Last Admin: 05/23/21 08:24 Dose: 40 mg Documented by: Famotidine (Famotidine 20 Mg Tab) 20 mg PO BID [facility] Last Admin: 05/23/21 08:24 Dose: 20 mg Documented by: Fluticasone Propionate (Fluticasone Propionate Nasal [place] 16 Gm Bottle) 0 gm NASBOTH DAILY [facility] Last Admin: 05/23/21 08:23 Dose: 1 spray Documented by: Gabapentin (Gabapentin 600 Mg Tab) 600 mg PO 0600,1200,1800,2100 [facility] Hydrocortisone (Hydrocortisone 1% Crm 30 Gm Tube) 0 gm TOP TID PRN PRN Reason: Hemorrhoids Last Admin: 05/21/21 14:03 Dose: 30 gm Documented by: Remdesivir 100 mg/ Sodium (Chloride) 250 mls @ 250 mls/hr IV Q24H [facility] Stop: 05/24/21 22:59 Last Admin: 05/22/21 22:07 Dose: 250 mls/hr Documented by: Loperamide HCl (Loperamide 2 Mg Cap) 2 mg PO Q4H PRN PRN Reason: Diarrhea Last Admin: 05/21/21 18:25 Dose: 2 mg Documented by: Magnesium Hydroxide (Magnesium Hydroxide 400 Mg/5 Ml Susp 30 Ml Cup) 30 ml PO Q12H PRN PRN Reason: Constipation Mexiletine HCl (Mexiletine 150 Mg Cap) 150 mg PO 0600,1400,2100 [facility] Miscellaneous Information (Remove Patch) 0 ea TRDERM DAILY [facility] Last Admin: 05/23/21 08:29 Dose: Not Given Documented by: Nicotine (Nicotine 14 Mg/24 Hr Patch) 14 mg TRDERM DAILY [facility] Last Admin: 05/23/21 08:29 Dose: Not Given Documented by: Ondansetron HCl (Ondansetron 4 Mg/2 Ml Sdv) 4 mg IV Q6H PRN PRN Reason: Nausea/Vomiting Last Admin: 05/23/21 10:23 Dose: 4 mg Documented by: Ropinirole HCl (Ropinirole 1 Mg Tab) 1 mg PO 1800,2100 [facility] Sodium Chloride (Sodium Chloride 0.9% 10 Ml Syringe) 10 ml FLUSH ASDIRECTED PRN PRN Reason: Keep Vein Open Last Admin: 05/20/21 21:50 Dose: 10 ml Documented by: Tramadol HCl (Tramadol 50 Mg Tab) 50 mg PO Q6H PRN PRN Reason: Pain Last Admin: 05/23/21 10:24 Dose: 50 mg Documented by: Trazodone HCl (Trazodone 50 Mg Tab) 150 mg PO BEDTIME PRN PRN Reason: Insomnia Last Admin: 05/22/21 22:07 Dose: 150 mg Documented by: Anais Garcia (Anais Garcia Medicated Pads 40/Jar) 1 pad TOP ASDIRECTED PRN PRN Reason: Hemorrhoids Zinc Sulfate (Zinc Sulfate 220 Mg Cap) 220 mg PO DAILY [facility] Last Admin: 05/23/21 08:25 Dose: 220 mg Documented by: Discontinued Medications Acetaminophen (Acetaminophen 325 Mg Tab) 650 mg PO NOW ONE Stop: 05/20/21 23:00 Last Admin: 05/20/21 23:42 Dose: 650 mg Documented by: Baclofen (Baclofen 10 Mg Tab) 20 mg PO ONETIME ONE Stop: 05/20/21 22:59 Last Admin: 05/20/21 23:44 Dose: 20 mg Documented by: Baclofen (Baclofen 10 Mg Tab) 20 mg PO QID [facility] Last Admin: 05/23/21 08:25 Dose: 20 mg Documented by: Dexamethasone (Dexamethasone 6 Mg Tablet) 6 mg PO ONETIME ONE Stop: 05/20/21 21:51 Last Admin: 05/20/21 22:01 Dose: 6 mg Documented by: Gabapentin (Gabapentin 300 Mg Cap) 600 mg PO ONETIME ONE Stop: 05/20/21 23:00 Last Admin: 05/20/21 23:41 Dose: 600 mg Documented by: Gabapentin (Gabapentin 600 Mg Tab) 600 mg PO QID [facility] Last Admin: 05/23/21 08:24 Dose: 600 mg Documented by: Remdesivir 200 mg/ Sodium (Chloride) 250 mls @ 250 mls/hr IV ONETIME ONE Stop: 05/20/21 22:41 Last Admin: 05/20/21 23:40 Dose: 250 mls/hr Documented by: Remdesivir 100 mg/ Sodium (Chloride) 100 mls @ 100 mls/hr IV Q24H [facility] Stop: 05/24/21 22:59 Sodium Phosphate 30 mmole/ (Sodium Chloride) 260 mls @ 86.667 mls/hr IV ONETIME ONE Stop: 05/21/21 12:59 Last Admin: 05/21/21 11:22 Dose: 86.667 mls/hr Documented by: Mexiletine HCl (Mexiletine 150 Mg Cap) 150 mg PO ONETIME ONE Stop: 05/20/21 23:00 Last Admin: 05/20/21 23:45 Dose: 150 mg Documented by: Mexiletine HCl (Mexiletine 150 Mg Cap) 150 mg PO TID [facility] Last Admin: 05/23/21 08:24 Dose: 150 mg Documented by: Potassium Chloride (Potassium Chloride 20 Meq Tab.Er) 40 meq PO ONETIME ONE Stop: 05/20/21 22:41 Last Admin: 05/20/21 23:40 Dose: 40 meq Documented by: Ropinirole HCl (Ropinirole 1 Mg Tab) 1 mg PO ONETIME ONE Stop: 05/20/21 22:59 Last Admin: 05/20/21 23:41 Dose: 1 mg Documented by: Ropinirole HCl (Ropinirole 1 Mg Tab) 1 mg PO 1700,2100 [facility] Last Admin: 05/22/21 22:03 Dose: 1 mg Documented by: - Patient Data Lab Results Last 24 hrs: Laboratory Results - last 24 hr 05/23/21 05/23/21 Range/Units 05:46 05:46 WBC 14.90 H (3.98-10.04) K/mm3 RBC 4.39 (3.98-5.22) M/mm3 Hgb 13.3 (11.2-15.7) gm/dl Hct 42.6 (34.1-44.9) % MCV 97.0 H (79.4-94.8) fl MCH 30.3 (25.6-32.2) pg MCHC 31.2 L (32.2-35.5) g/dl RDW Std Deviation 55.3 H (36.4-46.3) fL Plt Count 181 L (182-369) K/mm3 MPV 11.2 (9.4-12.3) fl Neut % (Auto) 81.8 H (34.0-71.1) % Lymph % (Auto) 10.9 L (19.3-51.7) % [place] % (Auto) 6.5 (4.7-12.5) % Eos % (Auto) 0 L (0.7-5.8) Baso % (Auto) 0.3 (0.1-1.2) % Neut # (Auto) 12.18 H (1.56-6.13) K/mm3 Lymph # (Auto) 1.63 (1.18-3.74) K/mm3 [place] # (Auto) 0.97 H (0.24-0.36) K/mm3 Eos # (Auto) 0.00 L (0.04-0.36) K/mm3 Baso # (Auto) 0.04 (0.01-0.08) K/mm3 Manual Slide Review Normal smear Sodium 140 (136-145) mEq/L Potassium 4.7 (3.5-5.1) mEq/L Chloride 102 (98-107) mEq/L Carbon Dioxide 31 (21-32) mEq/L Anion Gap 11.7 (5-15) BUN 20 H (7-18) mg/dL Creatinine 0.8 (0.55-1.02) mg/dL Est Cr Clr Drug Dosing 81.28 mL/min Estimated GFR (MDRD) > 60 (>60) mL/min BUN/Creatinine Ratio 25.0 H (14-18) Glucose 142 H (70-99) mg/dL Calcium 8.5 (8.5-10.1) mg/dL Magnesium 2.3 (1.8-2.4) mg/dL Total Bilirubin 0.2 (0.2-1.0) mg/dL AST 34 (15-37) U/L ALT 36 (14-59) U/L Alkaline Phosphatase 86 (46-116) U/L C-Reactive Protein 9.4 H* (<1.0) mg/dL Total Protein 5.6 L (6.4-8.2) g/dl Albumin 2.3 L (3.4-5.0) g/dl Globulin 3.3 gm/dL Albumin/Globulin Ratio 0.7 L (1-2) Result Diagrams: 05/23/21 05:46 05/23/21 05:46 Sepsis Event Note - Focused Exam Vital Signs: Vital Signs Temp Pulse Resp BP Pulse Ox Pulse Ox 05/23/21 09:11 92 L 05/23/21 07:00 92 L 05/23/21 06:05 94 L 05/23/21 04:00 98.8 F 78 20 134/79 92 L 05/23/21 00:00 98.9 F 67 22 H 130/78 94 L - Plan Plan:: Case discussed in full. Agree with evaluation, assessment, and plan. -Parag Mcelroy Jr., DO
[2021-05-23] MEDS: Fluticasone Propionate Nasal Spray 16 GM Bottle NASBOTH SCH (08:23)
[2021-05-23] MEDS: Enoxaparin 40 MG/0.4 ML Syringe SUBCUT SCH (08:24)
[2021-05-23] MEDS: Gabapentin 600 MG Tab PO SCH ×4 (08:24→21:02)
[2021-05-23] MEDS: Mexiletine 150 MG Cap PO SCH ×3 (08:24→21:01)
[2021-05-23] MEDS: Famotidine 20 MG Tab PO SCH ×2 (08:24→21:02)
[2021-05-23] MEDS: Docusate Sodium 100 MG Cap PO SCH ×2 (08:25→20:59)
[2021-05-23] MEDS: Baclofen 10 MG Tab PO SCH ×4 (08:25→21:00)
[2021-05-23] MEDS: Zinc Sulfate 220 MG Cap PO SCH (08:25)
[2021-05-23] MEDS: Dexamethasone 4 MG Tab PO SCH (08:25)
[2021-05-23] MEDS: Nicotine 14 MG/24 Hr Patch TRDERM SCH (08:29)
[2021-05-23] MEDS: Ondansetron 4 MG/2 ML SDV IV PRN (10:23)
[2021-05-23] MEDS: traMADol 50 MG Tab PO PRN ×3 (10:24→21:25)
[2021-05-23] MEDS: rOPINIRole 1 MG Tab PO SCH ×2 (17:55→21:03)
[2021-05-23] MEDS: Acetaminophen 325 MG Tab PO PRN (21:04)
[2021-05-23] MEDS: REMDESIVIR 100 MG in Sodium Chloride 0.9% 250 ML IV SCH (21:06)
[2021-05-23] MEDS: traZODone 50 MG Tab PO PRN (21:23)
[2021-05-24] MEDS: traMADol 50 MG Tab PO PRN ×2 (05:03→21:20)
[2021-05-24] MEDS: Mexiletine 150 MG Cap PO SCH ×3 (05:04→21:18)
[2021-05-24] MEDS: Baclofen 10 MG Tab PO SCH ×4 (05:05→21:21)
[2021-05-24] MEDS: Gabapentin 600 MG Tab PO SCH ×4 (05:05→21:21)
--- NOTE | 2021-05-24 08:05 | PCM.PN ---
- General Info Date of Service: 05/24/21 Admission Dx/Problem (Free Text): Admission Diagnosis/Problem Admission Diagnosis/Problem Hypoxia Subjective Update: No acute events overnight. No new nursing concerns. Patient remains on less than 4 L supplemental oxygen via nasal cannula. No fever. Patient denies any shortness of breath, chest pain, chest pressure or pleurisy. Eating and drinking okay. No abdominal complaints. Patient becoming frustrated about having to remain in the hospital and isolated. - Patient Data Vitals - Most Recent: Last Vital Signs Temp 97.5 F 05/24/21 04:15 Pulse 65 05/24/21 04:21 Resp 16 05/24/21 00:32 BP 134/91 H 05/24/21 04:21 Pulse Ox 93 L 05/24/21 05:15 Weight - Most Recent: 176 lb 8 oz I&O - Last 24 Hours: Intake & Output 05/23/21 05/24/21 05/24/21 22:59 06:59 14:59 Intake Total 1100 1050 Output Total 950 Balance 1100 100 Lab Results Last 24 Hours: Laboratory Results - last 24 hr 05/24/21 05/24/21 05/24/21 Range/Units 05:38 05:38 05:38 WBC 14.26 H (3.98-10.04) K/mm3 RBC 4.46 (3.98-5.22) M/mm3 Hgb 13.9 (11.2-15.7) gm/dl Hct 42.9 (34.1-44.9) % MCV 96.2 H (79.4-94.8) fl MCH 31.2 (25.6-32.2) pg MCHC 32.4 (32.2-35.5) g/dl RDW Std Deviation 53.5 H (36.4-46.3) fL Plt Count 193 (182-369) K/mm3 MPV 10.8 (9.4-12.3) fl Neut % (Auto) 81.2 H (34.0-71.1) % Lymph % (Auto) 10.7 L (19.3-51.7) % [place] % (Auto) 7.0 (4.7-12.5) % Eos % (Auto) 0 L (0.7-5.8) Baso % (Auto) 0.2 (0.1-1.2) % Neut # (Auto) 11.57 H (1.56-6.13) K/mm3 Lymph # (Auto) 1.53 (1.18-3.74) K/mm3 [place] # (Auto) 1.00 H (0.24-0.36) K/mm3 Eos # (Auto) 0.00 L (0.04-0.36) K/mm3 Baso # (Auto) 0.03 (0.01-0.08) K/mm3 Manual Slide Review Abnormal smear D-Dimer, Quantitative 0.42 (0.19-0.50) mg/L Sodium 139 (136-145) mEq/L Potassium 4.4 (3.5-5.1) mEq/L Chloride 99 (98-107) mEq/L Carbon Dioxide 33 H (21-32) mEq/L Anion Gap 11.4 (5-15) BUN 18 (7-18) mg/dL Creatinine 0.8 (0.55-1.02) mg/dL Est Cr Clr Drug Dosing 81.28 mL/min Estimated GFR (MDRD) > 60 (>60) mL/min BUN/Creatinine Ratio 22.5 H (14-18) Glucose 111 H (70-99) mg/dL Calcium 8.5 (8.5-10.1) mg/dL Magnesium 2.3 (1.8-2.4) mg/dL Total Bilirubin 0.3 (0.2-1.0) mg/dL AST 23 (15-37) U/L ALT 37 (14-59) U/L Alkaline Phosphatase 91 (46-116) U/L C-Reactive Protein 6.8 H* (<1.0) mg/dL Total Protein 6.2 L (6.4-8.2) g/dl Albumin 2.6 L (3.4-5.0) g/dl Globulin 3.6 gm/dL Albumin/Globulin Ratio 0.7 L (1-2) Med Orders - Current: Current Medications Acetaminophen (Acetaminophen 325 Mg Tab) 650 mg PO Q4H PRN PRN Reason: Fever Greater Than 101 Last Admin: 05/23/21 21:04 Dose: 650 mg Documented by: Albuterol (Albuterol 0.083% 2.5 Mg/3 Ml Neb Soln) 2.5 mg NEB Q2H PRN PRN Reason: Shortness Of Breath/wheezing Albuterol (Albuterol 6.7 Gm Inhaler) 0 gm INH Q2H PRN PRN Reason: SOB/Wheezing Last Admin: 05/23/21 21:49 Dose: 2 puff Documented by: Albuterol/Ipratropium (Albuterol/Ipratropium 3.0-0.5 Mg/3 Ml Neb Soln) 3 ml NEB QIDRT PRN PRN Reason: Shortness Of Breath/wheezing Alprazolam (Alprazolam 1 Mg Tab) 1 mg PO Q8H PRN PRN Reason: Anxiety Baclofen (Baclofen 10 Mg Tab) 20 mg PO 0600,1200,1800,2100 [facility] Last Admin: 05/24/21 05:05 Dose: 20 mg Documented by: Dexamethasone (Dexamethasone 4 Mg Tab) 6 mg PO DAILY [facility] Stop: 05/29/21 09:01 Last Admin: 05/23/21 08:25 Dose: 6 mg Documented by: Docusate Sodium (Docusate Sodium 100 Mg Cap) 100 mg PO BID [facility] Last Admin: 05/23/21 20:59 Dose: 100 mg Documented by: Enoxaparin Sodium (Enoxaparin 40 Mg/0.4 Ml Syringe) 40 mg SUBCUT DAILY [facility] Last Admin: 05/23/21 08:24 Dose: 40 mg Documented by: Famotidine (Famotidine 20 Mg Tab) 20 mg PO BID [facility] Last Admin: 05/23/21 21:02 Dose: 20 mg Documented by: Fluticasone Propionate (Fluticasone Propionate Nasal Felt 16 Gm Bottle) 0 gm NASBOTH DAILY [facility] Last Admin: 05/23/21 08:23 Dose: 1 spray Documented by: Gabapentin (Gabapentin 600 Mg Tab) 600 mg PO 0600,1200,1800,2100 [facility] Last Admin: 05/24/21 05:05 Dose: 600 mg Documented by: Hydrocortisone (Hydrocortisone 1% Crm 30 Gm Tube) 0 gm TOP TID PRN PRN Reason: Hemorrhoids Last Admin: 05/21/21 14:03 Dose: 30 gm Documented by: Remdesivir 100 mg/ Sodium (Chloride) 250 mls @ 250 mls/hr IV Q24H [facility] Stop: 05/24/21 22:59 Last Admin: 05/23/21 21:06 Dose: 250 mls/hr Documented by: Loperamide HCl (Loperamide 2 Mg Cap) 2 mg PO Q4H PRN PRN Reason: Diarrhea Last Admin: 05/21/21 18:25 Dose: 2 mg Documented by: Magnesium Hydroxide (Magnesium Hydroxide 400 Mg/5 Ml Susp 30 Ml Cup) 30 ml PO Q12H PRN PRN Reason: Constipation Last Admin: 05/23/21 21:23 Dose: 30 ml Documented by: Mexiletine HCl (Mexiletine 150 Mg Cap) 150 mg PO 0600,1400,2100 [facility] Last Admin: 05/24/21 05:04 Dose: 150 mg Documented by: Miscellaneous Information (Remove Patch) 0 ea TRDERM DAILY [facility] Last Admin: 05/23/21 08:29 Dose: Not Given Documented by: Nicotine (Nicotine 14 Mg/24 Hr Patch) 14 mg TRDERM DAILY [facility] Last Admin: 05/23/21 08:29 Dose: Not Given Documented by: Ondansetron HCl (Ondansetron 4 Mg/2 Ml Sdv) 4 mg IV Q6H PRN PRN Reason: Nausea/Vomiting Last Admin: 05/23/21 10:23 Dose: 4 mg Documented by: Ropinirole HCl (Ropinirole 1 Mg Tab) 1 mg PO 1800,2100 [facility] Last Admin: 05/23/21 21:03 Dose: 1 mg Documented by: Sodium Chloride (Sodium Chloride 0.9% 10 Ml Syringe) 10 ml FLUSH ASDIRECTED PRN PRN Reason: Keep Vein Open Last Admin: 05/20/21 21:50 Dose: 10 ml Documented by: Tramadol HCl (Tramadol 50 Mg Tab) 50 mg PO Q6H PRN PRN Reason: Pain Last Admin: 05/24/21 05:03 Dose: 50 mg Documented by: Trazodone HCl (Trazodone 50 Mg Tab) 150 mg PO BEDTIME PRN PRN Reason: Insomnia Last Admin: 05/23/21 21:23 Dose: 150 mg Documented by: Anais Garcia (Anais Garcia Medicated Pads 40/Jar) 1 pad TOP ASDIRECTED PRN PRN Reason: Hemorrhoids Zinc Sulfate (Zinc Sulfate 220 Mg Cap) 220 mg PO DAILY [facility] Last Admin: 05/23/21 08:25 Dose: 220 mg Documented by: Discontinued Medications Acetaminophen (Acetaminophen 325 Mg Tab) 650 mg PO NOW ONE Stop: 05/20/21 23:00 Last Admin: 05/20/21 23:42 Dose: 650 mg Documented by: Baclofen (Baclofen 10 Mg Tab) 20 mg PO ONETIME ONE Stop: 05/20/21 22:59 Last Admin: 05/20/21 23:44 Dose: 20 mg Documented by: Baclofen (Baclofen 10 Mg Tab) 20 mg PO QID [facility] Last Admin: 05/23/21 08:25 Dose: 20 mg Documented by: Dexamethasone (Dexamethasone 6 Mg Tablet) 6 mg PO ONETIME ONE Stop: 05/20/21 21:51 Last Admin: 05/20/21 22:01 Dose: 6 mg Documented by: Gabapentin (Gabapentin 300 Mg Cap) 600 mg PO ONETIME ONE Stop: 05/20/21 23:00 Last Admin: 05/20/21 23:41 Dose: 600 mg Documented by: Gabapentin (Gabapentin 600 Mg Tab) 600 mg PO QID [facility] Last Admin: 05/23/21 08:24 Dose: 600 mg Documented by: Remdesivir 200 mg/ Sodium (Chloride) 250 mls @ 250 mls/hr IV ONETIME ONE Stop: 05/20/21 22:41 Last Admin: 05/20/21 23:40 Dose: 250 mls/hr Documented by: Remdesivir 100 mg/ Sodium (Chloride) 100 mls @ 100 mls/hr IV Q24H [facility] Stop: 05/24/21 22:59 Sodium Phosphate 30 mmole/ (Sodium Chloride) 260 mls @ 86.667 mls/hr IV ONETIME ONE Stop: 05/21/21 12:59 Last Admin: 05/21/21 11:22 Dose: 86.667 mls/hr Documented by: Mexiletine HCl (Mexiletine 150 Mg Cap) 150 mg PO ONETIME ONE Stop: 05/20/21 23:00 Last Admin: 05/20/21 23:45 Dose: 150 mg Documented by: Mexiletine HCl (Mexiletine 150 Mg Cap) 150 mg PO TID [facility] Last Admin: 05/23/21 08:24 Dose: 150 mg Documented by: Potassium Chloride (Potassium Chloride 20 Meq Tab.Er) 40 meq PO ONETIME ONE Stop: 05/20/21 22:41 Last Admin: 05/20/21 23:40 Dose: 40 meq Documented by: Ropinirole HCl (Ropinirole 1 Mg Tab) 1 mg PO ONETIME ONE Stop: 05/20/21 22:59 Last Admin: 05/20/21 23:41 Dose: 1 mg Documented by: Ropinirole HCl (Ropinirole 1 Mg Tab) 1 mg PO 1700,2100 [facility] Last Admin: 05/22/21 22:03 Dose: 1 mg Documented by: - Exam Quality Assessment: Supplemental Oxygen General: Alert, No Acute Distress Lungs: Clear to Auscultation, Decreased Breath Sounds Cardiovascular: Regular Rate GI/Abdominal Exam: Normal Bowel Sounds, Soft, Non-Tender Extremities: Normal Inspection Skin: Warm, Dry - Patient Data Lab Results Last 24 hrs: Laboratory Results - last 24 hr 05/24/21 05/24/21 05/24/21 Range/Units 05:38 05:38 05:38 WBC 14.26 H (3.98-10.04) K/mm3 RBC 4.46 (3.98-5.22) M/mm3 Hgb 13.9 (11.2-15.7) gm/dl Hct 42.9 (34.1-44.9) % MCV 96.2 H (79.4-94.8) fl MCH 31.2 (25.6-32.2) pg MCHC 32.4 (32.2-35.5) g/dl RDW Std Deviation 53.5 H (36.4-46.3) fL Plt Count 193 (182-369) K/mm3 MPV 10.8 (9.4-12.3) fl Neut % (Auto) 81.2 H (34.0-71.1) % Lymph % (Auto) 10.7 L (19.3-51.7) % [place] % (Auto) 7.0 (4.7-12.5) % Eos % (Auto) 0 L (0.7-5.8) Baso % (Auto) 0.2 (0.1-1.2) % Neut # (Auto) 11.57 H (1.56-6.13) K/mm3 Lymph # (Auto) 1.53 (1.18-3.74) K/mm3 [place] # (Auto) 1.00 H (0.24-0.36) K/mm3 Eos # (Auto) 0.00 L (0.04-0.36) K/mm3 Baso # (Auto) 0.03 (0.01-0.08) K/mm3 Manual Slide Review Abnormal smear D-Dimer, Quantitative 0.42 (0.19-0.50) mg/L Sodium 139 (136-145) mEq/L Potassium 4.4 (3.5-5.1) mEq/L Chloride 99 (98-107) mEq/L Carbon Dioxide 33 H (21-32) mEq/L Anion Gap 11.4 (5-15) BUN 18 (7-18) mg/dL Creatinine 0.8 (0.55-1.02) mg/dL Est Cr Clr Drug Dosing 81.28 mL/min Estimated GFR (MDRD) > 60 (>60) mL/min BUN/Creatinine Ratio 22.5 H (14-18) Glucose 111 H (70-99) mg/dL Calcium 8.5 (8.5-10.1) mg/dL Magnesium 2.3 (1.8-2.4) mg/dL Total Bilirubin 0.3 (0.2-1.0) mg/dL AST 23 (15-37) U/L ALT 37 (14-59) U/L Alkaline Phosphatase 91 (46-116) U/L C-Reactive Protein 6.8 H* (<1.0) mg/dL Total Protein 6.2 L (6.4-8.2) g/dl Albumin 2.6 L (3.4-5.0) g/dl Globulin 3.6 gm/dL Albumin/Globulin Ratio 0.7 L (1-2) Result Diagrams: 05/24/21 05:38 05/24/21 05:38 Sepsis Event Note - Evaluation Sepsis Screening Result: No Definite Risk - Focused Exam Vital Signs: Vital Signs Temp Pulse Resp BP Pulse Ox Pulse Ox 05/24/21 05:15 93 L 05/24/21 05:00 94 L 05/24/21 04:21 65 134/91 H 95 05/24/21 04:15 97.5 F 05/24/21 00:32 98.4 F 74 16 125/73 93 L 05/23/21 23:48 88 L 05/23/21 23:45 84 L 05/23/21 21:50 84 L 05/23/21 20:53 98.2 F 72 14 135/93 H 100 - Problem List Review Problem List Initiated/Reviewed/Updated: Yes - Assessment Assessment:: 05/22/2021 50-year-old female admitted to the floor for treatment of her COVID-19 pneumonia. Overall she reports she is feeling better. She has had some concerns about her home medication and the timing of administration being different than when she takes it at home. Nursing instructed to discuss this with pharmacy and be sure we match up with when she takes them normally. She is down to 2 L of oxygen. Lung sounds have improved. She continues with her cast on her right lower extremity. Labs today show WBC of 10.34 which is likely steroid related. Hemoglobin 12.8. Platelet 163,000 which is improved. Neutrophils are elevated at 82.1. Smear is normal. D-dimer is 0.48. Sodium 138. Potassium 4.3. Chloride 102. Carbon dioxide 28. Anion gap is 12.3. BUN is 19. Creatinine 0.8. GFR greater than 60. Glucose 130. Calcium 8.2. Phosphorus is 3.0. Magnesium 2.4. Total bilirubin 0.3. AST 61, ALT 40, alkaline phosphatase 81. CRP is 19.1. Protein is 6.0. Albumin is 2.2. Procalcitonin obtained yesterday was 0.27. We will continue current treatment plan with dexamethasone 6 mg daily and remdesivir. She continues to utilize her incentive spirometry, Acapella, and prone frequently. Likely length of stay will be 4 more days pending progress and completion of remdesivir. 05/23/2021 50-year-old female admitted the floor for COVID-19 pneumonia treatment. Today she is a bit frustrated as she reports she takes her medications different than how we have been giving them. She states this was not addressed yesterday. Discussed this with nursing and pharmacy and they will follow up with patient and change schedule accordingly. She is down to 1 L of oxygen and lung sounds continue to improve. Cast remains on right lower extremity. WBC is up to 14.90, likely steroid related. Hemoglobin is 13.3. Platelet 181,000. Neutrophils are 81.8%. Smear is normal. Sodium is 140. Potassium 4.7. Chloride 102. Carbon dioxide 31. BUN is 20. Creatinine 0.8. GFR greater than 60. Glucose is 142. Calcium 8.5. Magnesium is 2.3. Bilirubin 0.2. AST is 34, ALT 36, alkaline phosphatase 86. CRP is down to 9.4. Human is 2.3. Protein is 5.6. We will continue with current treatment plan including remdesivir and dexamethasone. Likely discharge 1 to 3 days pending oxygen wean and improvement. 05/24/2021: No acute change in plan. We will entertain possible discharge tomorrow on oxygen if unable to be weaned. Specific instructions and education regarding discontinuation of tobacco products while on oxygen. Patient will need to absolutely refrain from smoking upon discharge. Will determine steroid and possible systemic anticoagulation dosing at time of discharge. We will have PT/OT and case management set her up with home O2 today.
[2021-05-24] MEDS: Dexamethasone 4 MG Tab PO SCH (08:31)
[2021-05-24] MEDS: Famotidine 20 MG Tab PO SCH ×2 (08:33→21:19)
[2021-05-24] MEDS: Zinc Sulfate 220 MG Cap PO SCH (08:35)
[2021-05-24] MEDS: Docusate Sodium 100 MG Cap PO SCH ×2 (08:35→21:19)
[2021-05-24] MEDS: Fluticasone Propionate Nasal Spray 16 GM Bottle NASBOTH SCH (08:36)
[2021-05-24] MEDS: Enoxaparin 40 MG/0.4 ML Syringe SUBCUT SCH (08:36)
[2021-05-24] MEDS: Nicotine 14 MG/24 Hr Patch TRDERM SCH (08:38)
[2021-05-24] MEDS: Ondansetron 4 MG/2 ML SDV IV PRN (09:04)
[2021-05-24] MEDS: Albuterol 6.7 GM Inhaler INH PRN (09:51)
[2021-05-24] MEDS ORDERED: Loratadine 10 MG Tab PO PRN (10:40)
[2021-05-24] MEDS: rOPINIRole 1 MG Tab PO SCH ×2 (18:07→21:45)
[2021-05-24] MEDS: REMDESIVIR 100 MG in Sodium Chloride 0.9% 250 ML IV SCH (21:17)
[2021-05-24] MEDS: traZODone 50 MG Tab PO PRN (21:18)
[2021-05-25] MEDS: Baclofen 10 MG Tab PO SCH (06:18)
[2021-05-25] MEDS: Gabapentin 600 MG Tab PO SCH (06:19)
[2021-05-25] MEDS: Mexiletine 150 MG Cap PO SCH (06:19)
[2021-05-25] MEDS: Famotidine 20 MG Tab PO SCH (08:14)
[2021-05-25] MEDS: Dexamethasone 4 MG Tab PO SCH (08:14)
[2021-05-25] MEDS: Docusate Sodium 100 MG Cap PO SCH (08:15)
[2021-05-25] MEDS: Zinc Sulfate 220 MG Cap PO SCH (08:15)
[2021-05-25] MEDS: Fluticasone Propionate Nasal Spray 16 GM Bottle NASBOTH SCH (08:16)
[2021-05-25] MEDS: Enoxaparin 40 MG/0.4 ML Syringe SUBCUT SCH (08:16)
[2021-05-25] MEDS: Nicotine 14 MG/24 Hr Patch TRDERM SCH (08:16)
--- NOTE | 2021-05-25 08:49 | PCM.DCSUM1 ---
Discharge Summary - Hospital Course Free Text/Narrative:: 05/22/2021 50-year-old female admitted to the floor for treatment of her COVID-19 pneumonia. Overall she reports she is feeling better. She has had some concerns about her home medication and the timing of administration being diffe rent than when she takes it at home. Nursing instructed to discuss this with pharmacy and be sure we match up with when she takes them normally. She is down to 2 L of oxygen. Lung sounds have improved. She continues with her cast on her right lower extremity. Labs today show WBC of 10.34 which is likely steroid related. Hemoglobin 12.8. Platelet 163,000 which is improved. Neutrophils are elevated at 82.1. Smear is normal. D-dimer is 0.48. Sodium 138. Potassium 4.3. Chloride 102. Carbon dioxide 28. Anion gap is 12.3. BUN is 19. Creatinine 0.8. GFR greater than 60. Glucose 130. Calcium 8.2. Phosphorus is 3.0. Magnesium 2.4. Total bilirubin 0.3. AST 61, ALT 40, alkaline phosphatase 81. CRP is 19.1. Protein is 6.0. Albumin is 2.2. Procalcitonin obtained yesterday was 0.27. We will continue current treatment plan with dexamethasone 6 mg daily and remdesivir. She continues to utilize her incentive spirometry, Acapella, and prone frequently. Likely length of stay will be 4 more days pending progress and completion of remdesivir. 05/23/2021 50-year-old female admitted the floor for COVID-19 pneumonia treatment. Today she is a bit frustrated as she reports she takes her medications different than how we have been giving them. She states this was not addressed yesterday. Discussed this with nursing and pharmacy and they will follow up with patient and change schedule accordingly. She is down to 1 L of oxygen and lung sounds continue to improve. Cast remains on right lower extremity. WBC is up to 14.90, likely steroid related. Hemoglobin is 13.3. Platelet 181,000. Neutrophils are 81.8%. Smear is normal. Sodium is 140. Potassium 4.7. Chloride 102. Carbon dioxide 31. BUN is 20. Creatinine 0.8. GFR greater than 60. Glucose is 142. Calcium 8.5. Magnesium is 2.3. Bilirubin 0.2. AST is 34, ALT 36, alkaline phosphatase 86. CRP is down to 9.4. Human is 2.3. Protein is 5.6. We will continue with current treatment plan including remdesivir and dexamethasone. Likely discharge 1 to 3 days pending oxygen wean and improvement. 05/24/2021: No acute change in plan. We will entertain possible discharge tomorrow on oxygen if unable to be weaned. Specific instructions and education regarding discontinuation of tobacco products while on oxygen. Patient will need to absolutely refrain from smoking upon discharge. Will determine steroid and possible systemic anticoagulation dosing at time of discharge. We will have PT/OT and case management set her up with home O2 today. 05/25/2021: Finished course of remdesivir last night. Remained stable on 3 to 4 L of oxygen. Patient not endorsing any complaints. Able to ambulate without increase in symptoms. No constitutional symptoms. P.o. intake is good. Will entertain discharge on home oxygen. Please see discharge instructions. Patient to continue dexamethasone for an additional 5 days and then transition to prednisone taper. Instructions to follow-up within 1 week. Patient is to refrain from smoking at all costs. HPI Initial Comments: Initial Comments - Free Text/Narative: This is a 50-year-old female who presented to ED on the night team hours of 05/20/2021 with worsening Covid symptoms. She reports symptoms began around 05/17/2021 and she tested positive for Covid on 05/19/2021. She received a monoclonal antibody infusion at the clinic on 05/20/2021 and unfortunately her symptoms have worsened. She reports fever, chills, cough, sore throat, body aches, headache, nausea, loss of taste and smell, and diarrhea. She was instructed to monitor her oxygen saturations at home and she was noted with saturations in the 70s to 80s. Her significant other reports she is loopy with saturations at low. She was utilizing Tylenol and ibuprofen. She reports a history of sleep apnea but states she was told not to wear her CPAP due to the recall. Reportedly has a history of COPD although she states pulmonary function testing prove this is an accurate. She is a 45-[id number]-mpap smoker who states she quit smoking on Wednesday. She was not vaccinated for COVID-19. In the ED twelve-lead EKG is obtained showing a sinus tachycardia at 107 bpm. Temp was 100.8. Pulse was 114. Respirations were 20. Blood pressure 116/72. Pulse ox was 91%. Labs are obtained showing a WBC of 7.03. Hemoglobin 14.0. Platelet 128,000. Neutrophils are elevated at 89.7%. D-dimer was 0.32. Sodium was 138. Potassium was low at 3.1. Chloride was 100. Carbon dioxide 28. Anion gap is 13.1. BUN is 20. Creatinine 1.2. GFR is 48. Glucose is 112. Calcium 8.3. Bilirubin 0.3. AST is 63, ALT 48, alkaline phosphatase 103. Troponin is less than 0.017. Protein is 6.6. Albumin is 2.8. proBNP is 147. X-rays obtained showing increased density within both sides of the chest worse on the left side. It is felt these findings are most likely due to prominent COVID-19 pneumonia. She is given potassium supplementation, 6 mg dexamethasone, remdesivir, and her home medications. She is requiring 3 L oxygen. She carries a history of lung nodules, nocturnal desaturation, GERD, IBS, overactive bladder, endometriosis chronic back pain, fibromyalgia, RA, RLS, L DDD, anxiety, PTSD, chronic pain syndrome. She has had a back fusion at L3-S1. She is a full code. Her primary care provider is Dr. Kothari. She is subsequently admitted to the ICU as a MedSurg overflow on telemetry for treatment of her COVID-19 pneumonia with hypoxia. Chest Pain Score (Numeric/FACES): 4 - Related Data Allergies/Adverse Reactions: Allergies Allergy/AdvReac Type Severity Reaction Status Date / Time iodine Allergy Severe Airway Verified 05/21/21 07:54 Tightness azithromycin [From Zithromax] Allergy Unknown Cannot Verified 05/21/21 07:54 Remember bee pollen Allergy Unknown Cannot Verified 05/21/21 07:54 Remember glucosamine Allergy Unknown Cannot Verified 05/21/21 07:54 Remember ketorolac [From Toradol] Allergy Unknown Cannot Verified 05/21/21 07:54 Remember latex Allergy Unknown Cannot Verified 05/21/21 07:54 Remember metrizamide Allergy Unknown Cannot Verified 05/21/21 07:54 Remember shellfish derived Allergy Unknown Cannot Verified 05/21/21 07:54 Remember sodium phosphate Allergy Unknown Cannot Verified 05/21/21 07:54 Remember Sulfa (Sulfonamide Allergy Unknown Cannot Verified 05/21/21 07:54 Antibiotics) Remember sumatriptan [From Imitrex] Allergy Unknown Cannot Verified 05/21/21 07:54 Remember zolpidem [From Ambien] Allergy Unknown Cannot Verified 05/21/21 07:54 Remember Home Medications: Home Meds ALPRAZolam [Xanax] 1 mg PO Q8H PRN 10/08/20 [History] Baclofen 20 mg PO QID 10/08/20 [History] Fluticasone Propionate [Flonase] 1 dose NASBOTH DAILY 10/08/20 [History] Hydrocortisone [Anusol-HC] 1 dose RECTAL TID PRN 10/08/20 [History] Maxalt Data Communications Technician 10 mg PO ASDIRECTED PRN 10/08/20 [History] Mexiletine [Mexitil] 150 mg PO TID 10/08/20 [History] Promethazine [Phenergan] 25 mg PO Q4H PRN 10/08/20 [History] rOPINIRole [Requip] 1 mg PO 1700,2100 10/08/20 [History] traZODone 150 mg PO BEDTIME PRN 10/08/20 [History] Docusate Sodium [Colace] 100 mg PO BID #60 capsule 10/09/20 [Rx] Gabapentin [Neurontin] 600 mg PO QID 10/09/20 [History] Past Medical History HEENT History: Reports: Allergic Rhinitis, Other (See Below) Other HEENT History: keratitis bullosa, post nasal drip Cardiovascular History: Reports: None Respiratory History: Reports: COPD, Other (See Below) Other Respiratory History: nodules in lungs, uses bipap, nocturnal desaturation Gastrointestinal History: Reports: GERD, Irritable Bowel Syndrome Other Gastrointestinal History: acid reflux, anorectal spasm Genitourinary History: Reports: Other (See Below) Other Genitourinary History: overactive bladder [employer]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, Other (See Below) Other OB/BYN History: pelvic floor dysfunction Musculoskeletal History: Reports: Back Pain, Chronic, Fibromyalgia, RA, Other (See Below) Other Musculoskeletal History: restless leg syndrome, myotonic dystrophy, bone spur, ganglion cyst Neurological History: Reports: Migraines, Other (See Below) Other Neuro History: restless leg syndrome, lumbar stenosis with neurogenic claudication, lumbar degenerative disc disease Psychiatric History: Reports: Anxiety, PTSD, Other (See Below) Other Psychiatric History: chronic pain syndrome Endocrine/Metabolic History: Reports: None Hematologic History: Reports: None Immunologic History: Reports: None Oncologic (Cancer) History: Reports: Malignant Melanoma Dermatologic History: Reports: None - Infectious Disease History Infectious Disease History: Reports: Novel Coronavirus - Past Surgical History HEENT Surgical History: Reports: None Cardiovascular Surgical History: Reports: None Respiratory Surgical History: Reports: None GI Surgical History: Reports: Appendectomy, Cholecystectomy, Colonoscopy, Other (See Below) Other GI Surgeries/Procedures: rectal surgery Female Surgical History: Reports: Hysterectomy Endocrine Surgical History: Reports: None Neurological Surgical History: Reports: Lumbar Spine, Thoracic Spine Musculoskeletal Surgical History: Reports: Other (See Below) Other Musculoskeletal Surgeries/Procedures:: back- fusion L3-S1, right foot surgery, hand surgery Oncologic Surgical History: Reports: None Dermatological Surgical History: Reports: Other (See Below) Social & Family History - Family History Family Medical History: No Pertinent Family History HEENT: Reports: Other (See Below) Other HEENT Family History: unknown Cardiac: Reports: [place] Respiratory: Reports: Other (See Below) Other Respiratory Family Hisory: unknown GI: Reports: Hiatal Hernia, Other (See Below) Other GI Family History: "colon problems" : Reports: Other (See Below) Other Family History: spastic bladder OBGYN: Reports: Endometriosis, Recurrent Spontaneous Musculoskeletal: Reports: Other (See Below) Other Musculoskeletal Family History: myotonic dystrophy Neurological: Reports: Dementia Psychiatric: Reports: Depression, Suicide Attempt Endocrine/Metabolic: Reports: Other (See Below) Other Endocrine/Metabolic Family History: Diabetes, unknown type Immunologic: Reports: Other (See Below) Other Immunologic Family History: unknown Dermatologic: Reports: Other (See Below) Other Dermatologic Family History: unknown Oncologic: Reports: Other (See Below) Other Oncologic Family History: mother had cancer, but patient is unsure what kind of cancer. - Tobacco Use Tobacco Use Status *Q: Current Every Day Tobacco User Years of Tobacco use: 30 Packs/Tins Daily: 1.5 - Caffeine Use Caffeine Use: Reports: Soda - Recreational Drug Use Recreational Drug Use: No - Living Situation & Occupation Living situation: Reports: Occupation: Unemployed H&P Review of Systems - Review of Systems: Review Of Systems: See Below General: Reports: Chills, Malaise, Weakness, Fatigue, Decreased Appetite. Denies: Fever, Night Sweats HEENT: Reports: Sore Throat. Denies: Headaches Pulmonary: Reports: Shortness of Breath, Pleuritic Chest Pain, Cough, Sputum Cardiovascular: Reports: Dyspnea on Exertion. Denies: Chest Pain, Palpitations, Edema Gastrointestinal: Reports: No Symptoms. Denies: Abdominal Pain, Constipation, Diarrhea, Nausea, Vomiting Genitourinary: Reports: No Symptoms. Denies: Pain Musculoskeletal: Reports: Back Pain (Chronic), Muscle Pain (Generalized myalgias) Skin: Reports: No Symptoms. Denies: Cyanosis Psychiatric: Reports: No Symptoms. Denies: Confusion Neurological: Reports: Weakness. Denies: Confusion, Dizziness, Headache, Numbness, Pre-Existing Deficit, Seizure, Syncope, Tingling, Difficulty Walking, Gait Disturbance Hematologic/Lymphatic: Reports: No Symptoms Immunologic: Reports: No Symptoms Exam - Exam Exam: See Below - Vital Signs Vital Signs: Last Vital Signs Temp 97.9 F 05/21/21 03:48 Pulse 95 05/21/21 03:48 Resp 25 H 05/21/21 03:48 BP 127/75 05/21/21 03:48 Pulse Ox 90 L 05/21/21 06:22 Weight: 170 lb 3.2 oz - Exam Quality Assessment: Supplemental Oxygen (3 L via nasal cannula), DVT Prophylaxis. No: Urinary Catheter General: Alert, Oriented, Cooperative, Mild Distress (Looks acutely ill) HEENT: Conjunctiva Clear, EACs Clear, Hearing Intact, Nares Patent, Posterior Pharynx Clear, Pupils Equal. No: Mucosa Moist & [place] (Dry) Neck: Supple, Trachea Midline Lungs: Decreased Breath Sounds, Crackles. No: Normal Respiratory Effort (Tachypneic), Wheezing Cardiovascular: Regular Rhythm, Tachycardia GI/Abdominal Exam: Normal Bowel Sounds, Soft, Non-Tender, No Distention (Female) Exam: Deferred Rectal (Female) Exam: Deferred Back Exam: Normal Inspection, Decreased Range of Motion Extremities: Normal Inspection, Normal Range of Motion, Non-Tender, No Pedal Edema Skin: Warm, Dry, Intact Neurological: Cranial Nerves Intact (Grossly) Neuro Extensive - Mental Status: Alert, Oriented x3 - Discharge Data Discharge Date: 05/25/21 Discharge Disposition: Home, Self-Care 01 Condition: Good - Referral to Home Health Primary Care Physician: Eliud Kothari MD - Patient Summary/Data Consults: Consultations 05/21/21 07:29 Respiratory Care Assess and Treatment [CONS] Routine 05/21/21 09:57 Consult to Physical Therapy [PT Evaluation and Treatment] [CONS] Routine 05/21/21 10:01 Consult to Sheet Rock Installation Helper [CONS] Routine - Patient Instructions Diet: Usual Diet as Tolerated Other/Special Instructions: Diet are as tolerated. Activity should be very light for the next 2 weeks. Continue taking steroids as indicated. Complete prescription for dexamethasone first. Then continue on to prednisone taper. Continue wearing oxygen at least 2 to 4 L with a goal of oxygen saturation of 9 0% or greater. Do not discontinue oxygen without the order of a physician. Do not temporarily discontinue oxygen to smoke. Do not smoke at all. Follow-up with primary care physician within 1 week. If you experience any signs or symptoms that warranted this admission please do not hesitate to call your Primary care provider or present to emergency department for immediate evaluation. If you find yourself requiring liters of supplemental oxygen consistently to feel better, please call your primary care physician or present to an emergency department for evaluation. - Discharge Plan *PRESCRIPTION DRUG MONITORING PROGRAM REVIEWED*: Not Applicable *COPY OF PRESCRIPTION DRUG MONITORING REPORT IN PATIENT SUMI: Not Applicable Prescriptions/Med Rec: dexAMETHasone [Dexamethasone] 6 mg PO DAILY #5 tablet predniSONE [Prednisone] See Taper PO DAILY #30 tab.ds.pk Home Medications: Home Meds ALPRAZolam [Xanax] 1 mg PO Q8H PRN 10/08/20 [History] Baclofen 20 mg PO QID 10/08/20 [History] Fluticasone Propionate [Flonase] 1 dose NASBOTH DAILY 10/08/20 [History] Hydrocortisone [Anusol-HC] 1 dose RECTAL TID PRN 10/08/20 [History] Maxalt Data Communications Technician 10 mg PO ASDIRECTED PRN 10/08/20 [History] Mexiletine [Mexitil] 150 mg PO TID 10/08/20 [History] Promethazine [Phenergan] 25 mg PO Q4H PRN 10/08/20 [History] rOPINIRole [Requip] 1 mg PO 1700,2100 10/08/20 [History] traZODone 150 mg PO BEDTIME PRN 10/08/20 [History] Docusate Sodium [Colace] 100 mg PO BID #60 capsule 10/09/20 [Rx] Gabapentin [Neurontin] 600 mg PO QID 10/09/20 [History] dexAMETHasone [Dexamethasone] 6 mg PO DAILY #5 tablet 05/25/21 [Rx] predniSONE [Prednisone] See Taper PO DAILY #30 tab.ds.pk 05/25/21 [Rx] Oxygen Therapy Mode: Nasal Cannula Oxygen Flow Rate (L/min): 4 (2-4, increase to max of 6 if necessary) Maintain SpO2% greater than: 90 Patient Handouts: COVID-19, Chronic Obstructive Pulmonary Disease, Home Oxygen Use, Adult, COVID-19: How to Protect Yourself and Others - CDC, CPAP and BPAP Information, Steps to Quit Smoking Forms: ED Department Discharge Referrals: Eliud Kothari MD [Primary Care Provider] - - Discharge Summary/Plan Comment DC Time >30 min.: Yes Total # of Minutes for Discharge Time: 40 - General Info Date of Service: 05/25/21 Admission Dx/Problem (Free Text: Admission Diagnosis/Problem Admission Diagnosis/Problem Hypoxia Subjective Update: Acute events overnight. No new nursing concerns. Remained stable on 3 to 4 L supplemental oxygen. - Patient Data Vitals - Most Recent: Last Vital Signs Temp 99.1 F 05/25/21 03:50 Pulse 87 05/25/21 03:50 Resp 18 05/25/21 03:50 BP 155/86 H 05/25/21 03:50 Pulse Ox 87 L 05/25/21 08:38 Weight - Most Recent: 174 lb 8 oz I&O - Last 24 hours: Intake & Output 05/24/21 05/25/21 05/25/21 22:59 06:59 14:59 Intake Total 400 750 Output Total 500 750 Balance -100 0 Lab Results - Last 24 hrs: Laboratory Results - last 24 hr 05/25/21 05/25/21 Range/Units 07:12 07:12 WBC 10.16 H (3.98-10.04) K/mm3 RBC 4.30 (3.98-5.22) M/mm3 Hgb 13.4 (11.2-15.7) gm/dl Hct 40.9 (34.1-44.9) % MCV 95.1 H (79.4-94.8) fl MCH 31.2 (25.6-32.2) pg MCHC 32.8 (32.2-35.5) g/dl RDW Std Deviation 51.4 H (36.4-46.3) fL Plt Count 207 (182-369) K/mm3 MPV 10.2 (9.4-12.3) fl Neut % (Auto) 75.9 H (34.0-71.1) % Lymph % (Auto) 15.0 L (19.3-51.7) % Hickman % (Auto) 7.1 (4.7-12.5) % Eos % (Auto) 0 L (0.7-5.8) Baso % (Auto) 0.5 (0.1-1.2) % Neut # (Auto) 7.72 H (1.56-6.13) K/mm3 Lymph # (Auto) 1.52 (1.18-3.74) K/mm3 [place]man # (Auto) 0.72 H (0.24-0.36) K/mm3 Eos # (Auto) 0.00 L (0.04-0.36) K/mm3 Baso # (Auto) 0.05 (0.01-0.08) K/mm3 Manual Slide Review Abnormal smear Sodium 134 L (136-145) mEq/L Potassium 4.1 (3.5-5.1) mEq/L Chloride 96 L (98-107) mEq/L Carbon Dioxide 32 (21-32) mEq/L Anion Gap 10.1 (5-15) BUN 15 (7-18) mg/dL Creatinine 0.8 (0.55-1.02) mg/dL Est Cr Clr Drug Dosing 81.28 mL/min Estimated GFR (MDRD) > 60 (>60) mL/min BUN/Creatinine Ratio 18.8 H (14-18) Glucose 74 (70-99) mg/dL Calcium 8.3 L (8.5-10.1) mg/dL Magnesium 1.8 (1.8-2.4) mg/dL Total Bilirubin 0.4 (0.2-1.0) mg/dL AST 21 (15-37) U/L ALT 28 (14-59) U/L Alkaline Phosphatase 75 (46-116) U/L C-Reactive Protein 12.0 H* (<1.0) mg/dL Total Protein 5.6 L (6.4-8.2) g/dl Albumin 2.4 L (3.4-5.0) g/dl Globulin 3.2 gm/dL Albumin/Globulin Ratio 0.8 L (1-2) Med Orders - Current: Current Medications Acetaminophen (Acetaminophen 325 Mg Tab) 650 mg PO Q4H PRN PRN Reason: Fever Greater Than 101 Last Admin: 05/23/21 21:04 Dose: 650 mg Documented by: Albuterol (Albuterol 0.083% 2.5 Mg/3 Ml Neb Soln) 2.5 mg NEB Q2H PRN PRN Reason: Shortness Of Breath/wheezing Albuterol (Albuterol 6.7 Gm Inhaler) 0 gm INH Q2H PRN PRN Reason: SOB/Wheezing Last Admin: 05/24/21 09:51 Dose: 2 puff Documented by: Albuterol/Ipratropium (Albuterol/Ipratropium 3.0-0.5 Mg/3 Ml Neb Soln) 3 ml NEB QIDRT PRN PRN Reason: Shortness Of Breath/wheezing Alprazolam (Alprazolam 1 Mg Tab) 1 mg PO Q8H PRN PRN Reason: Anxiety Baclofen (Baclofen 10 Mg Tab) 20 mg PO 0600,1200,1800,2100 [facility] Last Admin: 05/25/21 06:18 Dose: 20 mg Documented by: Dexamethasone (Dexamethasone 4 Mg Tab) 6 mg PO DAILY [facility] Stop: 05/29/21 09:01 Last Admin: 05/25/21 08:14 Dose: 6 mg Documented by: Docusate Sodium (Docusate Sodium 100 Mg Cap) 100 mg PO BID [facility] Last Admin: 05/25/21 08:15 Dose: 100 mg Documented by: Enoxaparin Sodium (Enoxaparin 40 Mg/0.4 Ml Syringe) 40 mg SUBCUT DAILY [facility] Last Admin: 05/25/21 08:16 Dose: 40 mg Documented by: Famotidine (Famotidine 20 Mg Tab) 20 mg PO BID [facility] Last Admin: 05/25/21 08:14 Dose: 20 mg Documented by: Fluticasone Propionate (Fluticasone Propionate Nasal Randle 16 Gm Bottle) 0 gm NASBOTH DAILY [facility] Last Admin: 05/25/21 08:16 Dose: 1 spray Documented by: Gabapentin (Gabapentin 600 Mg Tab) 600 mg PO 0600,1200,1800,2100 [facility] Last Admin: 05/25/21 06:19 Dose: 600 mg Documented by: Hydrocortisone (Hydrocortisone 1% Crm 30 Gm Tube) 0 gm TOP TID PRN PRN Reason: Hemorrhoids Last Admin: 05/21/21 14:03 Dose: 30 gm Documented by: Loperamide HCl (Loperamide 2 Mg Cap) 2 mg PO Q4H PRN PRN Reason: Diarrhea Last Admin: 05/21/21 18:25 Dose: 2 mg Documented by: Loratadine (Loratadine 10 Mg Tab) 10 mg PO DAILY PRN PRN Reason: Allergies Last Admin: 05/24/21 10:48 Dose: 10 mg Documented by: Magnesium Hydroxide (Magnesium Hydroxide 400 Mg/5 Ml Susp 30 Ml Cup) 30 ml PO Q12H PRN PRN Reason: Constipation Last Admin: 05/23/21 21:23 Dose: 30 ml Documented by: Mexiletine HCl (Mexiletine 150 Mg Cap) 150 mg PO 0600,1400,2100 [facility] Last Admin: 05/25/21 06:19 Dose: 150 mg Documented by: Miscellaneous Information (Remove Patch) 0 ea TRDERM DAILY [facility] Last Admin: 05/25/21 08:16 Dose: Not Given Documented by: Nicotine (Nicotine 14 Mg/24 Hr Patch) 14 mg TRDERM DAILY [facility] Last Admin: 05/25/21 08:16 Dose: Not Given Documented by: Ondansetron HCl (Ondansetron 4 Mg/2 Ml Sdv) 4 mg IV Q6H PRN PRN Reason: Nausea/Vomiting Last Admin: 05/24/21 09:04 Dose: 4 mg Documented by: Ropinirole HCl (Ropinirole 1 Mg Tab) 1 mg PO 1800,2100 [facility] Last Admin: 05/24/21 21:45 Dose: 1 mg Documented by: Sodium Chloride (Sodium Chloride 0.9% 10 Ml Syringe) 10 ml FLUSH ASDIRECTED PRN PRN Reason: Keep Vein Open Last Admin: 05/20/21 21:50 Dose: 10 ml Documented by: Tramadol HCl (Tramadol 50 Mg Tab) 50 mg PO Q6H PRN PRN Reason: Pain Last Admin: 05/24/21 21:20 Dose: 50 mg Documented by: Trazodone HCl (Trazodone 50 Mg Tab) 150 mg PO BEDTIME PRN PRN Reason: Insomnia Last Admin: 05/24/21 21:18 Dose: 150 mg Documented by: Anais Garcia (Anais Garcia Medicated Pads 40/Jar) 1 pad TOP ASDIRECTED PRN PRN Reason: Hemorrhoids Zinc Sulfate (Zinc Sulfate 220 Mg Cap) 220 mg PO DAILY [facility] Last Admin: 05/25/21 08:15 Dose: 220 mg Documented by: Discontinued Medications Acetaminophen (Acetaminophen 325 Mg Tab) 650 mg PO NOW ONE Stop: 05/20/21 23:00 Last Admin: 05/20/21 23:42 Dose: 650 mg Documented by: Baclofen (Baclofen 10 Mg Tab) 20 mg PO ONETIME ONE Stop: 05/20/21 22:59 Last Admin: 05/20/21 23:44 Dose: 20 mg Documented by: Baclofen (Baclofen 10 Mg Tab) 20 mg PO QID [facility] Last Admin: 05/23/21 08:25 Dose: 20 mg Documented by: Dexamethasone (Dexamethasone 6 Mg Tablet) 6 mg PO ONETIME ONE Stop: 05/20/21 21:51 Last Admin: 05/20/21 22:01 Dose: 6 mg Documented by: Gabapentin (Gabapentin 300 Mg Cap) 600 mg PO ONETIME ONE Stop: 05/20/21 23:00 Last Admin: 05/20/21 23:41 Dose: 600 mg Documented by: Gabapentin (Gabapentin 600 Mg Tab) 600 mg PO QID [facility] Last Admin: 05/23/21 08:24 Dose: 600 mg Documented by: Remdesivir 200 mg/ Sodium (Chloride) 250 mls @ 250 mls/hr IV ONETIME ONE Stop: 05/20/21 22:41 Last Admin: 05/20/21 23:40 Dose: 250 mls/hr Documented by: Remdesivir 100 mg/ Sodium (Chloride) 100 mls @ 100 mls/hr IV Q24H [facility] Stop: 05/24/21 22:59 Sodium Phosphate 30 mmole/ (Sodium Chloride) 260 mls @ 86.667 mls/hr IV ONETIME ONE Stop: 05/21/21 12:59 Last Admin: 05/21/21 11:22 Dose: 86.667 mls/hr Documented by: Remdesivir 100 mg/ Sodium (Chloride) 250 mls @ 250 mls/hr IV Q24H [facility] Stop: 05/24/21 22:59 Last Admin: 05/24/21 21:17 Dose: 250 mls/hr Documented by: Mexiletine HCl (Mexiletine 150 Mg Cap) 150 mg PO ONETIME ONE Stop: 05/20/21 23:00 Last Admin: 05/20/21 23:45 Dose: 150 mg Documented by: Mexiletine HCl (Mexiletine 150 Mg Cap) 150 mg PO TID [facility] Last Admin: 05/23/21 08:24 Dose: 150 mg Documented by: Potassium Chloride (Potassium Chloride 20 Meq Tab.Er) 40 meq PO ONETIME ONE Stop: 05/20/21 22:41 Last Admin: 05/20/21 23:40 Dose: 40 meq Documented by: Ropinirole HCl (Ropinirole 1 Mg Tab) 1 mg PO ONETIME ONE Stop: 05/20/21 22:59 Last Admin: 05/20/21 23:41 Dose: 1 mg Documented by: Ropinirole HCl (Ropinirole 1 Mg Tab) 1 mg PO 1700,2100 [facility] Last Admin: 05/22/21 22:03 Dose: 1 mg Documented by: - Exam Quality Assessment: Reports: Supplemental Oxygen General: Reports: Alert, Cooperative, No Acute Distress HEENT: Reports: Mucous Membr. Moist/[place] Neck: Reports: Supple Lungs: Reports: Clear to Auscultation, Normal Respiratory Effort Cardiovascular: Reports: Regular Rate, Regular Rhythm GI/Abdominal Exam: Normal Bowel Sounds, Soft, Non-Tender Extremities: Normal Inspection, No Pedal Edema Skin: Reports: Warm, Dry
[2021-05-25 08:57] VITALS: BP 135/74; PULSE 82
== END 2021-05-25 10:38 | disposition home or self-care (01) | DRG 137 ==
LOC: JD.ED 20:32 → JD.ICU 22:57 → JD.MS 05-22 20:03
PROVIDERS: ADMIT Family Medicine; ATTEND Family Medicine
PROC: XW033E5 Introduction of Remdesivir Anti-infective into Peripheral Vein, Percutaneous Approach, New Technology Group 5 (ICD-10-PCS; principal; 2021-05-20)
PROC: 8E0ZXY6 Isolation (ICD-10-PCS; principal; 2021-05-20)
PROC: 3E0DX3Z Introduction of Anti-inflammatory into Mouth and Pharynx, External Approach (ICD-10-PCS; principal; 2021-05-20)
DX: U07.1 COVID-19 (principal); J12.82 Pneumonia due to coronavirus disease 2019; J96.01 Acute respiratory failure with hypoxia; J44.9 Chronic obstructive pulmonary disease, unspecified; Z87.891 Personal history of nicotine dependence; K21.9 Gastro-esophageal reflux disease without esophagitis; N32.81 Overactive bladder; N80.9 Endometriosis, unspecified; R91.8 Other nonspecific abnormal finding of lung field; M54.9 Dorsalgia, unspecified; M79.7 Fibromyalgia; M06.9 Rheumatoid arthritis, unspecified; G25.81 Restless legs syndrome; M51.36 Other intervertebral disc degeneration, lumbar region; F41.9 Anxiety disorder, unspecified; F43.10 Post-traumatic stress disorder, unspecified; E87.6 Hypokalemia; D69.6 Thrombocytopenia, unspecified; G89.4 Chronic pain syndrome; G71.11 Myotonic muscular dystrophy; M48.062 Spinal stenosis, lumbar region with neurogenic claudication; N17.9 Acute kidney failure, unspecified; G47.34 Idiopathic sleep related nonobstructive alveolar hypoventilation; K58.9 Irritable bowel syndrome, unspecified; E88.09 Other disorders of plasma-protein metabolism, not elsewhere classified; E83.39 Other disorders of phosphorus metabolism; R79.82 Elevated C-reactive protein (CRP); Z98.1 Arthrodesis status; Z91.09 Other allergy status, other than to drugs and biological substances; Z88.1 Allergy status to other antibiotic agents; Z91.030 Bee allergy status; Z88.5 Allergy status to narcotic agent; Z91.040 Latex allergy status; Z91.013 Allergy to seafood; Z88.2 Allergy status to sulfonamides; Z88.8 Allergy status to other drugs, medicaments and biological substances; Z79.899 Other long term (current) drug therapy; Z85.72 Personal history of non-Hodgkin lymphomas; Z86.16 Personal history of COVID-19; Z90.49 Acquired absence of other specified parts of digestive tract; Z90.710 Acquired absence of both cervix and uterus
CPT/HCPCS: 36415; 71045; 71045-26; 80053; 82306; 83735; 83880; 84100; 84145; 84484; 85025; 85379; 86140; 93005; 94640; 94667; 94668; 94762; 99285-25; A9270-GY; J1650; J2405; J7050; J8540

== ENCOUNTER 2022-03-22 21:54 | Emergency (ER) | payer BC ==
[2022-03-22 22:44] VITALS: BP 174/103; PULSE 87
[2022-03-23] MEDS ORDERED: Acetaminophen/HYDROcodone 325-5 MG Tab PO ONE (00:17)
== END 2022-03-23 01:55 | disposition home or self-care (01) ==
LOC: JD.ED 21:54
DX: R07.82 Intercostal pain (principal); F17.210 Nicotine dependence, cigarettes, uncomplicated; Z91.041 Radiographic dye allergy status; Z88.1 Allergy status to other antibiotic agents; Z91.030 Bee allergy status; Z91.040 Latex allergy status; Z91.013 Allergy to seafood; Z88.2 Allergy status to sulfonamides; Z88.8 Allergy status to other drugs, medicaments and biological substances; Z79.899 Other long term (current) drug therapy; Z86.16 Personal history of COVID-19; Z90.49 Acquired absence of other specified parts of digestive tract; Z90.710 Acquired absence of both cervix and uterus
CPT/HCPCS: 71046; 99283; A9270

== ENCOUNTER 2022-08-15 20:30 | Emergency (ER) | payer BC ==
[2022-08-15] MEDS ORDERED: Acetaminophen/HYDROcodone 325-5 MG Tab PO ONE ×2 (21:14→23:08)
[2022-08-15] MEDS ORDERED: Ondansetron 4 MG Tab.DIS PO ONE (22:23)
[2022-08-16 01:40] VITALS: BP 149/86; PULSE 82
== END 2022-08-16 | disposition home or self-care (01) ==
LOC: JD.ED 20:30
DX: M54.50 Low back pain, unspecified (principal); J44.9 Chronic obstructive pulmonary disease, unspecified; Z72.0 Tobacco use; Z91.041 Radiographic dye allergy status; Z88.1 Allergy status to other antibiotic agents; Z91.030 Bee allergy status; Z88.8 Allergy status to other drugs, medicaments and biological substances; Z88.5 Allergy status to narcotic agent; Z91.040 Latex allergy status; Z91.013 Allergy to seafood; Z88.2 Allergy status to sulfonamides; Z79.899 Other long term (current) drug therapy
CPT/HCPCS: 74176; 99283; A9270

== ENCOUNTER 2022-11-25 11:54 | Emergency (ER) | payer BC | END 2022-11-25 12:13 | disposition left against medical advice (07) | LOC: JD.ED 11:54 | DX: Z53.21 Procedure and treatment not carried out due to patient leaving prior to being seen by health care provider (principal) ==

== ENCOUNTER 2023-02-12 16:45 | Emergency (ER) | payer BC ==
[2023-02-12 17:21] VITALS: BP 140/81; PULSE 96
[2023-02-12] MEDS ORDERED: HYDROmorphone 1 MG/ML Syringe IM ONE (17:39)
[2023-02-12] MEDS ORDERED: Ondansetron 4 MG Tab.DIS PO ONE (17:39)
[2023-02-12] MEDS ORDERED: Cyclobenzaprine 10 MG Tab PO ONE (17:39)
== END 2023-02-12 19:42 | disposition home or self-care (01) ==
LOC: JD.ED 16:45
DX: S32.018A Other fracture of first lumbar vertebra, initial encounter for closed fracture (principal); J44.9 Chronic obstructive pulmonary disease, unspecified; Z91.041 Radiographic dye allergy status; Z91.030 Bee allergy status; Z88.8 Allergy status to other drugs, medicaments and biological substances; Z88.1 Allergy status to other antibiotic agents; Z91.040 Latex allergy status; Z91.013 Allergy to seafood; Z88.2 Allergy status to sulfonamides; Z86.16 Personal history of COVID-19
CPT/HCPCS: 72125; 72128; 72131; 96372; 99283; A9270; J1170

== ENCOUNTER 2023-06-23 17:12 | Emergency (ER) | payer BC ==
[2023-06-23] MEDS ORDERED: Sodium Chloride 0.9% 10 ML Syringe FLUSH PRN (17:39)
[2023-06-23] MEDS ORDERED: Sodium Chloride 0.9% 1,000 ML IV ONE (17:46)
[2023-06-23] MEDS ORDERED: Ondansetron 4 MG/2 ML SDV IVPUSH ONE (17:51)
[2023-06-23 17:57] LABS: BASOPHILS ABSOLUTE AUTO 0.1 K/mm3 (0.0-0.2); BASOPHILS PERCENT AUTO 0.5 % (0.0-1.0); EOSINOPHILS ABSOLUTE AUTO 0.1 K/mm3 (0.0-0.4); EOSINOPHILS PERCENT AUTO 0.5 % (0.0-6.0); HEMATOCRIT 46.9 % (37.0-47.0); HEMOGLOBIN 16.2 gm/dl (12.0-16.0); IMMATURE GRAN ABSOLUTE AUTO 0.04 K/mm3 (0.00-0.05); IMMATURE GRAN PERCENT AUTO 0.4 % (0.0-0.4); MEAN CORPUSCULAR HEMOGLOBIN 31.8 pg (28.0-32.0); MEAN CORPUSCULAR HGB CONC 34.5 g/dl (32.0-36.0); MEAN PLATELET VOLUME 10.3 fl (9.4-12.3); MONOCYTES ABSOLUTE AUTO 0.7 K/mm3 (0.0-0.8); MONOCYTES PERCENT AUTO 6.8 % (0.0-8.0); NEUTROPHILS ABSOLUTE AUTO 6.2 K/mm3 (1.8-7.7); NEUTROPHILS PERCENT AUTO 61.8 % (41.0-71.0); PLATELET COUNT,PLT 207 K/mm3 (150-400); WHITE BLOOD CELL COUNT,WBC 10.08 K/mm3 (3.9-11.3)
[2023-06-23 18:23] LABS: ALBUMIN 3.5 g/dl (3.4-5.0); BILIRUBIN TOTAL 0.4 mg/dL (0.2-1.0); BUN/CREATININE RATIO 9.4 (14-18); CALCIUM 9.1 mg/dL (8.5-10.1); CREATININE 1.8 mg/dL (0.55-1.02); EST CRCL DRUG DOSING (CG) 34.61 mL/min; MAGNESIUM 1.8 mg/dL (1.8-2.4); PROTEIN TOTAL,TP 7.2 g/dl (6.4-8.2)
[2023-06-23] MEDS ORDERED: Potassium Chloride 20 MEQ Tab.ER PO ONE (18:37)
[2023-06-23 18:43] LABS: CORONAVIRUS COVID-19 NAA NEGATIVE (NEGATIVE); INFLUENZA A NAA NEGATIVE (NEGATIVE); RESPIRATORY SYNCYTIAL VIR NAA NEGATIVE (NEGATIVE)
[2023-06-23 19:18] VITALS: BP 122/80; PULSE 86
== END 2023-06-23 19:18 | disposition home or self-care (01) ==
LOC: JD.ED 17:12
DX: I95.89 Other hypotension (principal); E87.6 Hypokalemia; Z20.822 Contact with and (suspected) exposure to COVID-19; K21.9 Gastro-esophageal reflux disease without esophagitis; J44.9 Chronic obstructive pulmonary disease, unspecified; Z86.16 Personal history of COVID-19; Z88.0 Allergy status to penicillin; Z91.030 Bee allergy status; Z91.040 Latex allergy status
CPT/HCPCS: 0241U; 36415; 80053; 83735; 84484; 85025; 93005; 96361; 96374; 99284; A9270; J2405; J3490; J7030; 93010

== ENCOUNTER 2023-12-21 17:43 | Emergency (ER) | payer BC ==
[2023-12-21] MEDS: tiZANidine 4 MG Tab PO ONE (19:43)
[2023-12-21 20:07] LABS: BASOPHILS PERCENT AUTO 0.4 % (0.0-1.0); EOSINOPHILS ABSOLUTE AUTO 0.1 K/mm3 (0.0-0.4); EOSINOPHILS PERCENT AUTO 0.7 % (0.0-6.0); HEMOGLOBIN 15.7 gm/dl (12.0-16.0); IMMATURE GRAN ABSOLUTE AUTO 0.03 K/mm3 (0.00-0.05); IMMATURE GRAN PERCENT AUTO 0.4 % (0.0-0.4); LYMPHOCYTES ABSOLUTE AUTO 3.2 K/mm3 (1.0-4.8); LYMPHOCYTES PERCENT AUTO 38.4 % (24.0-44.0); MEAN CORPUSCULAR HEMOGLOBIN 31.8 pg (28.0-32.0); MEAN CORPUSCULAR HGB CONC 32.7 g/dl (32.0-36.0); MEAN CORPUSCULAR VOLUME 97.2 fl (83.0-99.0); MEAN PLATELET VOLUME 10.2 fl (9.4-12.3); MONOCYTES ABSOLUTE AUTO 0.5 K/mm3 (0.0-0.8); MONOCYTES PERCENT AUTO 6.5 % (0.0-8.0); NEUTROPHILS ABSOLUTE AUTO 4.5 K/mm3 (1.8-7.7); NEUTROPHILS PERCENT AUTO 53.6 % (41.0-71.0); PLATELET COUNT,PLT 180 K/mm3 (150-400); RED BLOOD CELL COUNT 4.94 M/mm3 (4.10-5.30)
[2023-12-21 20:31] LABS: A/G RATIO 1.1 (1-2); ALANINE AMINOTRANSFERASE,ALT 21 U/L (14-59); ALBUMIN 3.7 g/dl (3.4-5.0); ALKALINE PHOSPHATASE 90 U/L (46-116); ANION GAP 8.9 (5-15); ASPARTATE AMNIOTRANSFERASE,AST 18 U/L (15-37); BILIRUBIN TOTAL 0.4 mg/dL (0.2-1.0); BLOOD UREA NITROGEN,BUN 12 mg/dL (7-18); C-REACTIVE PROTEIN <0.05 mg/dL (<0.30); CALCIUM 9.2 mg/dL (8.5-10.1); CARBON DIOXIDE,CO2 31 mEq/L (21-32); CHLORIDE,CL 103 mEq/L (98-107); EST CRCL DRUG DOSING (CG) 61.59 mL/min; ESTIMATED GFR 68 mL/min (>60); MAGNESIUM 2.4 mg/dL (1.8-2.4); POTASSIUM,K 2.9 mEq/L (3.5-5.1); SODIUM,NA 140 mEq/L (136-145)
[2023-12-21 20:42] LABS: GLUCOSE RANDOM 44 mg/dL (70-99)
[2023-12-21] MEDS: Potassium Chloride 20 MEQ Tab.ER PO ONE (20:52)
[2023-12-21 21:49] VITALS: BP 121/78; PULSE 80
== END 2023-12-21 21:54 | disposition home or self-care (01) ==
LOC: JD.ED 17:43
DX: M54.16 Radiculopathy, lumbar region (principal); M54.42 Lumbago with sciatica, left side; J44.9 Chronic obstructive pulmonary disease, unspecified; F17.210 Nicotine dependence, cigarettes, uncomplicated; Z86.16 Personal history of COVID-19; Z90.49 Acquired absence of other specified parts of digestive tract; Z90.710 Acquired absence of both cervix and uterus; Z79.899 Other long term (current) drug therapy; Z88.2 Allergy status to sulfonamides; Z88.0 Allergy status to penicillin; Z88.1 Allergy status to other antibiotic agents; Z91.040 Latex allergy status; Z91.013 Allergy to seafood; Z91.030 Bee allergy status; Z91.048 Other nonmedicinal substance allergy status; Z88.8 Allergy status to other drugs, medicaments and biological substances; Z88.6 Allergy status to analgesic agent
CPT/HCPCS: 36415; 72128; 72131; 80053; 82947; 83735; 85025; 86140; 99284; A9270

== ENCOUNTER 2024-10-12 22:26 | Emergency (ER) | payer BC, MEDICARE ==
[2024-10-12] MEDS ORDERED: Sodium Chloride 0.9% 10 ML Syringe FLUSH PRN (23:14)
[2024-10-12] MEDS: Sodium Chloride 0.9% 1,000 ML IV ONE (23:27)
[2024-10-12] MEDS: Benzonatate 100 MG Cap PO ONE (23:27)
[2024-10-12 23:33] LABS: BASOPHILS ABSOLUTE AUTO 0.1 K/mm3 (0.0-0.2); EOSINOPHILS ABSOLUTE AUTO 0.6 K/mm3 (0.0-0.4); EOSINOPHILS PERCENT AUTO 5.4 % (0.0-6.0); HEMOGLOBIN 14.5 gm/dl (12.0-16.0); IMMATURE GRAN ABSOLUTE AUTO 0.03 K/mm3 (0.00-0.05); IMMATURE GRAN PERCENT AUTO 0.3 % (0.0-0.4); LYMPHOCYTES ABSOLUTE AUTO 3.6 K/mm3 (1.0-4.8); LYMPHOCYTES PERCENT AUTO 32.7 % (24.0-44.0); MEAN CORPUSCULAR HEMOGLOBIN 31.7 pg (28.0-32.0); MEAN CORPUSCULAR HGB CONC 33.7 g/dl (32.0-36.0); MEAN CORPUSCULAR VOLUME 94.1 fl (83.0-99.0); MEAN PLATELET VOLUME 10.1 fl (9.4-12.3); MONOCYTES ABSOLUTE AUTO 0.8 K/mm3 (0.0-0.8); MONOCYTES PERCENT AUTO 7.3 % (0.0-8.0); NEUTROPHILS ABSOLUTE AUTO 5.8 K/mm3 (1.8-7.7); NEUTROPHILS PERCENT AUTO 53.3 % (41.0-71.0); PLATELET COUNT,PLT 238 K/mm3 (150-400); RED BLOOD CELL COUNT 4.57 M/mm3 (4.10-5.30); WHITE BLOOD CELL COUNT,WBC 10.84 K/mm3 (3.9-11.3)
[2024-10-12 23:58] LABS: LACTIC ACID 0.9 mmol/L (0.4-2.0)
[2024-10-13 00:04] LABS: ALBUMIN 3.6 g/dl (3.4-5.0); ANION GAP 11.8 (5-15); BILIRUBIN TOTAL 0.4 mg/dL (0.2-1.0); CALCIUM 9.4 mg/dL (8.5-10.1); EST CRCL DRUG DOSING (CG) 60.91 mL/min; POTASSIUM,K 3.8 mEq/L (3.5-5.1); PROTEIN TOTAL,TP 7.2 g/dl (6.4-8.2)
[2024-10-13 00:08] LABS: APPEARANCE,URINE CLEAR (Clear); BILIRUBIN,URINE NEGATIVE (Negative); COLOR,URINE YELLOW (Yellow); GLUCOSE,URINE NEGATIVE (Negative); KETONES,URINE NEGATIVE (Negative); LEUKOCYTE ESTERASE,URINE NEGATIVE (Negative); NITRITE,URINE NEGATIVE (Negative); OCCULT BLOOD,URINE NEGATIVE (Negative); PROTEIN,URINE NEGATIVE (Negative); UROBILINOGEN,URINE 0.2 (0.2-1.0)
[2024-10-13] MEDS ORDERED: Azithromycin 500 MG in Sodium Chloride 0.9% 250 ML IV ONE (00:11)
[2024-10-13] MEDS: Albuterol/Ipratropium 3.0-0.5 MG/3 ML Neb Soln NEB ONE (00:22)
[2024-10-13] MEDS: Labetalol 100 MG/20 ML MDV IVPUSH ONE (00:41)
[2024-10-13] MEDS: cefTRIAXone 1 GM Vial IVPUSH ONE (00:52)
[2024-10-13 01:26] VITALS: BP 170/83; PULSE 88
== END 2024-10-13 01:20 | disposition home or self-care (01) ==
LOC: JD.ED 22:26
DX: J18.9 Pneumonia, unspecified organism (principal); J45.901 Unspecified asthma with (acute) exacerbation; J44.0 Chronic obstructive pulmonary disease with (acute) lower respiratory infection; K21.9 Gastro-esophageal reflux disease without esophagitis; Z90.710 Acquired absence of both cervix and uterus; Z79.899 Other long term (current) drug therapy; Z88.8 Allergy status to other drugs, medicaments and biological substances; Z91.013 Allergy to seafood; Z88.2 Allergy status to sulfonamides; Z88.6 Allergy status to analgesic agent; Z88.0 Allergy status to penicillin; Z91.041 Radiographic dye allergy status; Z88.1 Allergy status to other antibiotic agents; Z91.030 Bee allergy status
CPT/HCPCS: 36415; 71045; 71045-26; 80053; 81003; 83605; 85025; 94640; 96361; 96374; 96375; 99284; 99285-25; A9270-GY; J0696; J1920; J7030

== ENCOUNTER 2024-12-10 13:53 | Emergency (ER) | payer MEDICARE ==
[2024-12-10 14:06] VITALS: PULSE 80
[2024-12-10] MEDS ORDERED: Naloxone 0.4 MG/ML SDV IVPUSH PRN (14:44)
[2024-12-10] MEDS: HYDROmorphone 0.5 MG/0.5 ML Syringe IM ONE (14:57)
[2024-12-10 15:44] LABS: BASOPHILS ABSOLUTE AUTO 0.1 K/mm3 (0.0-0.2); BASOPHILS PERCENT AUTO 0.6 % (0.0-1.0); EOSINOPHILS ABSOLUTE AUTO 0.4 K/mm3 (0.0-0.4); EOSINOPHILS PERCENT AUTO 4.1 % (0.0-6.0); HEMATOCRIT 44.1 % (37.0-47.0); HEMOGLOBIN 14.4 gm/dl (12.0-16.0); IMMATURE GRAN ABSOLUTE AUTO 0.03 K/mm3 (0.00-0.05); IMMATURE GRAN PERCENT AUTO 0.3 % (0.0-0.4); LYMPHOCYTES PERCENT AUTO 27.5 % (24.0-44.0); MEAN CORPUSCULAR HEMOGLOBIN 31.2 pg (28.0-32.0); MEAN CORPUSCULAR HGB CONC 32.7 g/dl (32.0-36.0); MEAN CORPUSCULAR VOLUME 95.5 fl (83.0-99.0); MEAN PLATELET VOLUME 11.5 fl (9.4-12.3); MONOCYTES ABSOLUTE AUTO 0.7 K/mm3 (0.0-0.8); MONOCYTES PERCENT AUTO 6.6 % (0.0-8.0); NEUTROPHILS ABSOLUTE AUTO 6.6 K/mm3 (1.8-7.7); NEUTROPHILS PERCENT AUTO 60.9 % (41.0-71.0); RED BLOOD CELL COUNT 4.62 M/mm3 (4.10-5.30); WHITE BLOOD CELL COUNT,WBC 10.75 K/mm3 (3.9-11.3)
[2024-12-10 15:49] LABS: PLATELET COUNT,PLT 128 K/mm3 (150-400)
[2024-12-10 16:04] LABS: ALBUMIN 3.5 g/dl (3.4-5.0); ANION GAP 11.2 (5-15); BILIRUBIN TOTAL 0.4 mg/dL (0.2-1.0); BUN/CREATININE RATIO 18.3 (14-18); CREATININE 1.8 mg/dL (0.55-1.02); EST CRCL DRUG DOSING (CG) 33.84 mL/min; MAGNESIUM 2.1 mg/dL (1.8-2.4); POTASSIUM,K 4.2 mEq/L (3.5-5.1); PROTEIN TOTAL,TP 7.1 g/dl (6.4-8.2)
[2024-12-10 16:55] LABS: APPEARANCE,URINE CLEAR (Clear); BILIRUBIN,URINE NEGATIVE (Negative); COLOR,URINE YELLOW (Yellow); GLUCOSE,URINE NEGATIVE (Negative); KETONES,URINE TRACE (Negative); LEUKOCYTE ESTERASE,URINE NEGATIVE (Negative); NITRITE,URINE NEGATIVE (Negative); OCCULT BLOOD,URINE NEGATIVE (Negative); PROTEIN,URINE 1+ (Negative); UROBILINOGEN,URINE 0.2 (0.2-1.0)
[2024-12-10] MEDS: Ondansetron 4 MG Tab.DIS PO ONE (17:03)
[2024-12-10] MEDS: Acetaminophen 325 MG Tab PO ONE (17:03)
[2024-12-10 17:04] LABS: RBC,URINE 0-5 /hpf (0-5); WBC,URINE 0-5 /hpf (0-5)
[2024-12-10 17:05] LABS: BACTERIA,URINE FEW /hpf (FEW)
[2024-12-10 17:06] LABS: MUCUS,URINE MODERATE /hpf (FEW)
[2024-12-10 17:20] LABS: BARBITURATE SCREEN,URINE NEGATIVE (CUTOFF=200); BENZODIAZEPINES SCREEN,URINE NEGATIVE (CUTOFF=150); BUPRENORPHINE SCREEN,URINE NEGATIVE (CUTOFF=10); METHADONE SCREEN, URINE NEGATIVE (CUTOFF=200); METHAMPHETAMINES SCREEN, URINE NEGATIVE (CUTOFF=500); OXYCODONE SCREEN,URINE PRESUMPTIVE POSITIVE (CUT0FF=100); THC SCREEN,URINE 20 NG/ML NEGATIVE (CUTOFF=50)
[2024-12-10 17:24] LABS: AMPHETAMINES SCREEN, URINE NEGATIVE (CUTOFF=500)
[2024-12-10 18:00] VITALS: BP 135/85
== END 2024-12-10 17:59 | disposition home or self-care (01) ==
LOC: JD.ED 13:53
DX: R27.0 Ataxia, unspecified (principal); R25.8 Other abnormal involuntary movements; J44.9 Chronic obstructive pulmonary disease, unspecified; Z88.8 Allergy status to other drugs, medicaments and biological substances; Z88.0 Allergy status to penicillin; Z88.2 Allergy status to sulfonamides; Z91.013 Allergy to seafood; Z91.030 Bee allergy status; Z79.899 Other long term (current) drug therapy; Z79.811 Long term (current) use of aromatase inhibitors; Z86.16 Personal history of COVID-19; Z90.49 Acquired absence of other specified parts of digestive tract; Z90.710 Acquired absence of both cervix and uterus
CPT/HCPCS: 36415; 70450; 80053; 80306; 81001; 83735; 85025; 96372; 99284; A9270; J1171